=== PATIENT | male | born 1935 | race Caucasian/White ===

== ENCOUNTER 2016-12-31 09:09 | Outpatient (CLI) | payer MEDICARE ==
--- NOTE | 2016-12-31 10:41 | RAD ---
TWO VIEWS CHEST: 12/31/2016 COMPARISON: 08/20/2016 FINDINGS: Two views of the chest demonstrate bilateral pleural effusions and/or pleural scar. No significant interval changes seen since the previous comparison exam from 08/20/2016. No other evidence of air space opacities seen. IMPRESSION: Stable views chest with bilateral pleural effusions or pleural scar. No significant interval change s noted. POS: [facility]
--- OUTSIDE RECORDS SUMMARY | 2016-12-31 12:45 | XMS | Clinical Summary ---
:1935 Author Organization [facility] Address [address] [place] [address] Phone Care Team Providers Name Role Phone , Primary Care Provider Unavailable Allergies Not on File Current Medications Not on file Active Problems Not on file Social History Tobacco Use Types Packs/Day Years Used Date Never Assessed Sex Assigned at Date Recorded Not on file Last Filed Vital Signs Not on file Plan of Treatment Not on file Results Not on filefrom Last 3 Months
== END 2016-12-31 09:10 | disposition home or self-care (01) ==
LOC: RAD 09:09
PROVIDERS: ATTEND Internal Medicine Critical Care Medicine
DX: R06.00 Dyspnea, unspecified (principal)
CPT/HCPCS: 71020

== ENCOUNTER 2017-01-16 17:57 | Inpatient (IN) | payer MEDICARE ==
[2017-01-16 18:37] LABS: Hematocrit 39.9 % (42.0-52.0); Mean Platelet Volume 8.5 fL (7.4-10.4); White Blood Cell (WBC) Count 32.9 thou/uL (4.8-10.8)
[2017-01-16 18:52] LABS: Anisocytosis SLIGHT = 6-15 cells (100X) (0-5/hpf); Band 17 % (5-11); Elliptocytes SLIGHT = 2-5 cells (100X) (0-1/hpf); Macrocytosis SLIGHT = 6-15 cells (100X) (0-5/hpf); Neutrophil 75 % (42-75); Ovalocytes SLIGHT = 2-5 cells (100X) (0-1/hpf); Polychromasia SLIGHT = 2-3 cells (100X) (0-2/hpf); Schistocytes SLIGHT = 2-5 cells (100X) (0-1/hpf)
[2017-01-16 18:56] LABS: ALT (SGPT) 29 U/L (8-55); AST (SGOT) 16 U/L (5-34); Alkaline Phosphatase 81 U/L (40-150); Anion Gap 12 mmol/L (10-20); BUN (Urea Nitrogen) 21 mg/dL (8.4-25.7); Bilirubin, Total 1.4 mg/dL (0.2-1.2); Calc. Creatinine Clearance 0 mL/min (70-130); Calcium 8.7 mg/dL (7.8-10.44); Carbon Dioxide 32 mmol/L (23-31); Chloride 104 mmol/L (98-107); Estimated GFR-MDRD 76; Globulin 2.6 g/dL (2.4-3.5); Magnesium 2.4 mg/dL (1.6-2.6)
[2017-01-16 19:00] LABS: Troponin I 0.022 ng/mL (< 0.028)
[2017-01-16] MEDS ORDERED: Fentanyl 100 MCG/2 ML VIAL ONE (19:01)
[2017-01-16 19:05] LABS: PTT 25.7 SEC (22.9-36.1); Prothrombin Time 12.9 SEC (12.0-14.7)
[2017-01-16] MEDS ORDERED: Albuterol Sulfate 2.5 mg/3 ml Neb ONE (20:08)
--- NOTE | 2017-01-16 20:12 | RAD ---
THREE VIEWS RIGHT SHOULDER: History: Fall, pain. Comparison: None. FINDINGS: Mild bone demineralization. Glenohumeral joint space is preserved. No fracture or dislocation with r egards to the proximal humerus. Scapula is intact. Visualized right ribs are also intact. There is a mildly displaced distal clavicl e fracture. IMPRESSION: Mildly displaced distal clavicle fracture. POS: [facility]
--- NOTE | 2017-01-16 20:13 | RAD ---
TWO VIEWS RIGHT HIP: History: Fall, pain. Comparison: None. FINDINGS: An impacted slightly displaced fracture involving the right hip which appears to be subcapital in lo cation. There is disruption of the cortical margin noted along the superior lateral aspect. Moderate degenerative changes of the right hip joint space. Visualized bony pelvis is unremarkable. IMPRESSION: Right hip (subcapital) fracture. POS: [facility]
--- NOTE | 2017-01-16 20:21 | RAD ---
ONE VIEW CHEST: Comparison: 12-31-16 History: Fall. Pain. FINDINGS: Chronic changes of the right hemithorax. Stable cardiac silhouette. Stable compensatory hyperinflati on of the left lung. Stable bilateral apical pleural thickening. There is no pneumothorax. Distal right clavicle fracture. Acute fractures along the posterior right ribs are not appreciated. There appear to be remote fractu res involving the posterior right 8th and 9th rib. IMPRESSION: 1. Acute right clavicle fracture. 2. Remote fractures along the posterior right 8th and 9th rib. 3. Chronic changes of the lung parenchyma as above. POS: [facility]
[2017-01-16] MEDS ORDERED: HYDROcodone/Acetaminophen 5/325 mg Tablet ONE (20:37)
[2017-01-16] MEDS ORDERED: CEFAZOLIN/Water 2 GM/20 ML SYRINGE SLOW IVP SCH (21:00)
--- NOTE | 2017-01-16 21:57 | CON ---
DATE OF ADMISSION: 01/16/2017 DATE OF CONSULTATION: 01/16/2017 ATTENDING PHYSICIAN: Dr. Leobardo Webb. HISTORY OF PRESENT ILLNESS: Asael Cao is an 81-year-old gentleman with past medical history of COPD, atrial fibrillation, recurrent pleural effusion, who presented to [facility] m status post fall. He had a chief complaint of right lower extremity pain. He was evaluated in [facility] emergency room and found to be in atrial fibrillation with RVR with a right clavicle fracture, a r ight pleural effusion and a right hip fracture. Given patient's severe pulmonary history and multip le medical problems, Orthopedic Surgery asked that Medicine admit the patient with trauma and Orthop edics as consultants. Upon my evaluation, the patient reports a chief complaint of right hip pain. GCS of 15. The patient states that he was walking in his kitchen when his legs gave out from under neath him. He denied any dizziness, syncope, loss of consciousness, head trauma. He states he land ed on his right side, right hip, and right shoulder simultaneously. ALLERGIES: None. HOME MEDICATIONS: Ultram 50 mg 1 tab p.o. b.i.d. p.r.n. for pain, temazepam 30 mg p.o. at bedtime, gabapentin 600 mg t.i.d., prednisone 10 mg p.o. daily, although the patient is currently on a predni sone taper, Flomax 0.4 mg p.o. daily, atorvastatin 40 mg p.o. at bedtime, and aspirin 81 mg p.o. leslie ly. PAST MEDICAL HISTORY: Significant for COPD on 2 liters home O2, atrial fibrillation, recurrent pleu ral effusion, neuropathy, hypertension, BPH, coronary artery disease and peripheral vascular disease . PAST SURGICAL HISTORY: Appendectomy, right lung decortication, carotid endarterectomy. SOCIAL HISTORY: The patient lives at home with and son. Denies alcohol use. Denies illicit d rug use. The patient is a former smoker, approximately 50-pack years, chews tobacco. FAMILY HISTORY: Significant for father from a heart attack in his 70s. Mother fr om cervical cancer in her 90s, brothers with diabetes. REVIEW OF SYSTEMS: Negative except as indicated in the HPI. PHYSICAL EXAMINATION: VITAL SIGNS: Blood pressure 118/76, pulse 101, respirations 19, O2 sat 97% on 3-4 liters nasal kusum momo. GENERAL: Well-developed elderly appearing male, in no acute distress, resting in bed. PULMONARY: Normal work of breathing, symmetric chest rise. Lung sounds are distant bilaterally wit h mild expiratory wheezing. There appears to be clubbing of the digits. CARDIOVASCULAR: Tachycardic, irregularly irregular. No obvious murmurs, rubs or gallops. GASTROINTESTINAL: Abdomen is mildly rotund and tympanic. No tenderness to palpation. Bowel sounds are positive. BACK: Back exam is being reported within normal limits. MUSCULOSKELETAL: Right upper extremity range of motion limited secondary to pain. There is tendern ess to the right shoulder. There is a skin tear on the right wrist that is currently bandaged. Sathish ssing is clean, dry, and intact. Right lower extremity mildly shortened and externally rotated. Th ere is left lower extremity range of motion within normal limits. There is 1+ pitting edema at the ankle. Pulses are intact bilaterally. NEUROLOGIC: GCS of 15. No focal deficit noted. LABORATORY FINDINGS: WBC 32.9, hemoglobin 12.4, hematocrit 39.9, platelet count 252, 17% bands. IN R 1.0. Sodium 144, potassium 4.4, chloride 104, carbon dioxide 32, BUN 21, creatinine 0.95, total b ilirubin 1.4, AST and ALT within normal limits. RADIOGRAPHIC FINDINGS: X-ray of the right shoulder significant for clavicular fracture, official re ad is pending. Hip x-ray is significant for right femoral neck fracture, official read is pending. Chest x-ray demonstrates hyperinflated lungs with bibasilar pleural effusion, right greater than le ft, official read is still pending. EKG is significant for atrial fibrillation with RVR and nonspec ific T-wave abnormality as well as PVCs. ASSESSMENT: 1. Status post mechanical fall. 2. Right hip fracture. 3. Right clavicle fracture. 4. Acute traumatic pain. 5. Leukocytosis with bandemia. 6. Anemia. 7. Chronic obstructive pulmonary disease/chronic hypoxic respiratory failure on home O2. 8. Bilateral effusion, right greater than left. 9. History of coronary artery disease and hypertension. 10. Chronic steroid use. PLAN: The patient to be admitted to Medicine Service and IMCU. Orthopedic Surgery has seen and natali luated the patient. They plan for operative intervention tomorrow if cleared by Pulmonology and [facility] pital Medicine. Perioperative pain management. PT, OT. DVT and gastritis prophylaxis as appropria te. The patient should be n.p.o. after midnight. Trauma attending has been notified of consultatio n. Plans for admission were discussed with the patient as the patient was being evaluated concurren tly with Hospital Medicine. All questions were answered at the time of this dictation.
[2017-01-16] MEDS ORDERED: Ondansetron HCl/PF 4 MG/2 ML Vial IVP PRN ×2 (22:02→22:16)
[2017-01-16] MEDS ORDERED: Albuterol Sulfate 2.5 mg/3 ml Neb NEB PRN ×2 (22:02→22:15)
[2017-01-16] MEDS ORDERED: Temazepam 15 MG CAP PO PRN (22:02)
[2017-01-16 22:08] LABS: Troponin I 0.042 ng/mL (< 0.028)
[2017-01-16] MEDS ORDERED: Sodium Chloride 0.9% 1,000 ML IV SCH (22:15)
[2017-01-16] MEDS ORDERED: Ondansetron ODT 4 MG TAB SL PRN (22:16)
[2017-01-16] MEDS ORDERED: HYDROcodone/Acetaminophen 5/325 mg Tablet PO PRN ×2 (22:16)
[2017-01-16] MEDS ORDERED: Acetaminophen 325 MG TAB PO PRN (22:16)
--- NOTE | 2017-01-16 22:22 | HP ---
DATE OF ADMISSION: 01/16/2017 PRIMARY CARE PHYSICIAN: Francisco at [facility]. PRIMARY CERTIFIED TRAVEL COUNSELOR: Dr. Mayank Kennedy at [facility]. PRIMARY CLAY HOUSE WORKER AND BASICALLY PRIMARY CARE PHYSICIAN: Dr. Nigel Forrest here. CHIEF COMPLAINT: Fall with hip fracture. HISTORY OF PRESENT ILLNESS: Mr. Cao is a very pleasant 81-year-old white male with history of peripheral neuropathy, coronary artery disease with remote VA, hypertension, BPH, and COPD. This p atient is fairly significant who was in normal state of health and fell this morning. He states he was walking, had been up for a couple of minutes, walking across the house, and suddenl y just found himself on the floor. He does not remember any loss of consciousness or presyncope. N o dizziness. Normally, his family is around and they are able to help him to the floor, but not thi s time. He fell on to his left side, had immediate right hip pain and right shoulder pain. He was brought to the emergency department for evaluation. He denies any head trauma. No fevers or chills. No nausea or vomiting. No diarrhea or constipatio n. He has recently been treated for a COPD exacerbation and is tapering down off the steroids. No other current complaints. At present, he is comfortable. The patient was being seen by Dr. Bah and by the Trauma Service by Kelli prior to my arrival. T he plan is for us to admit him for Orthopedics and Trauma to consult. PAST MEDICAL HISTORY: 1. Peripheral neuropathy. 2. Coronary artery disease, status post VA in 2000. 3. Benign prostatic hypertrophy. 4. Hypertension. 5. Asthma/COPD. 6. Recurrent right pleural effusion that has not required drainage in some time. PAST SURGICAL HISTORY: Includes: 1. Carotid endarterectomy. He knows he has had the one done on the left and next he may have the o ne done on the right as well. 2. Appendectomy remotely. 3. Right lung pleural effusion removal, multiple times. At one time, he did have what sounds like a PleurX catheter in place, but that at some point fell out and has not needed re-draining since. HOME MEDICATIONS: 1. Aspirin 81 mg daily. 2. Gabapentin 600 mg p.o. t.i.d. 3. Tramadol 50 mg p.o. b.i.d. 4. Tamsulosin 0.4 mg p.o. daily. 5. Prednisone 10 mg p.o. daily. He is currently on a tapering dose down to 20 mg daily. He is sup posed to go back down to 10 mg tomorrow. 6. DuoNebs nebulized t.i.d. 7. Budesonide 500 mg nebulized b.i.d. 8. Temazepam 15-30 mg p.o. at bedtime. 9. Vitamin D3 1000 units daily. 10. Atorvastatin 40 mg p.o. at bedtime. ALLERGIES: NKDA. FAMILY HISTORY: Negative for clotting or bleeding disorder, no immune dysfunction. SOCIAL HISTORY: Significant for chewing tobacco. He has backed off quite some time in the last cou ple of weeks. He did have a 38-[id number]-eylk history, started at the age of 16 or 17, 1 pack per day fo r about 60 years, but quit that a few years ago and started chewing tobacco. No history of alcohol or IV drug use. He lives with his family. REVIEW OF SYSTEMS: A 10-point review of systems was performed, negative for all other systems excep t stated as per HPI. Specifically, he states that his breathing is about baseline. He denies any p alpitations. PHYSICAL EXAMINATION: VITAL SIGNS: Temperature currently 99.0, pulse anywhere from 107-149, blood pressure 148/79, respir atory rate 20, satting 96% on 2 liters. GENERAL: He is awake. He is alert. He is oriented x3. He is an older white male who is frail but appears to be well-developed, well-nourished. HEENT: Normocephalic, atraumatic. Pupils equal, round, reactive bilaterally. Mucous membranes are moist. He has no visible lesion, no thrush. His teeth are in poor repair. NECK: Supple. He has bilateral carotid endarterectomy scars. He has no bruits. Normal carotid up strokes. NECK: Supple with good range of motion. No thyromegaly. LUNGS: He has prolonged expiratory phase and expiratory high-pitched wheezing. He has got poor air movement bilaterally with symmetrical chest excursion. He has no crackles, no rhonchi. CARDIOVASCULAR: He is irregularly irregular. He has an S1 and a faint S2. He has no audible murmu rs. ABDOMEN: Soft. It is nontender, nondistended, no masses, no organomegaly. EXTREMITIES: Show no cyanosis or clubbing. He has no edema at present. MUSCULOSKELETAL: He has swelling and fluid around the medial right clavicle. His left hip is nonte nder and without any palpable joint effusions. The remainder of his joints are normal to inspection . NEUROLOGIC: Cranial nerves II through XII are grossly intact. He has no focal neurologic deficits in 4-5/5 strength in all 4 of his extremities. SKIN: Otherwise, warm, moist, and well perfused. He has no rashes, no lesions. He has an IV in juany th of his peripheral forearms. LABORATORY DATA: CMP is essentially normal. Sodium 144, potassium 4.4, creatinine 0.95, glucose 89 . INR is 1.0. Troponin I was 0.022, MB fraction of 1.7. He has a white count of 32,900,he has 75% granulocytes, w ith 7% bands. Hemoglobin is 12.4, hematocrit of 39.9, platelets 252,000. IMAGING: Right shoulder films showed a right clavicular fracture medial with minimal displacement. Chest x-ray showed no acute lung abnormalities. Right hip showed a comminuted right femoral neck f racture. ASSESSMENT AND PLAN: 1. Fall from same level. The patient does not report and specifically denies syncope, presyncope, or palpitations. He does have a history of recurrent falls. Placed him on fall precautions. 2. Right femoral neck fracture: Certainly, a traumatic fracture with associated right medial clavi cular fracture. Orthopedic has been consulted. We will immobilize the right arm. We will keep the patient n.p.o. as Dr. Bah has seen the patient and plan is to take him to the operating room [facility] if cleared by Pulmonary for operative repair. 3. Atrial fibrillation with rapid ventricular response, history of paroxysmal atrial fibrillation: Per Dr. Licona's request, we will place the patient on amiodarone drip without a loading dose. We are getting 1 mg per hour. We will reevaluate in the morning. The heart rate is fluctuating betwe en 107-170 on the monitor, may benefit from the Cardizem as his blood pressure support or digoxin. 4. History of coronary artery disease: No chest pain. He has a heart doctor that he sees in [place]. We will monitor his biomarkers. 5. Benign prostatic hypertrophy. We will continue his Flomax. 6. Hypertension, on really nothing. 7. Hyperlipidemia, on atorvastatin. 8. History of chronic obstructive pulmonary disease: Does not appear to be in any acute flare. We will continue DuoNebs q.i.d. with q. 2 hours p.r.n. albuterol. We will continue his steroids at 20 mg a day. I will likely restart his budesonide as well. Pulmonary has been consulted. We will ge t their recommendations. 8. Recurrent right pleural effusion: Not much seen on chest x-ray today other than scarring and pl eural thickening. We will follow up on the official report once available.
[2017-01-16] MEDS ORDERED: Famotidine/PF 20 mg/2ml Vial SLOW IVP SCH (22:30)
[2017-01-16] MEDS ORDERED: Gabapentin 300 MG CAP PO SCH (22:30)
[2017-01-16] MEDS ORDERED: Tamsulosin HCl 0.4 MG CAP PO SCH (22:30)
[2017-01-16 22:56] VITALS: BMI 20.1
[2017-01-16] MEDS ORDERED: Morphine 4 MG/ML VIAL SLOW IVP PRN (23:13)
--- NOTE | 2017-01-16 23:15 | CON ---
DATE OF CONSULTATION: 01/16/2017 PRINCIPAL DIAGNOSES: 1. Femoral neck fracture. 2. Clavicle fracture. HISTORY OF PRESENT ILLNESS: Mr. Cao is an 81-year-old gentleman who suffers frequent falls at home. He fell today and suffered a fracture of his distal clavicle and moderately displaced femora l neck fracture on the right side, both fracture being on the right side. He complains of pain at t he hip and the shoulder. PHYSICAL EXAMINATION: GENERAL: Shows a pleasant gentleman who is alert and oriented. He has remarkable sense of humor an d very good spirits. HEAD: Normocephalic, atraumatic. His clavicle is tender. EXTREMITIES: His right hip has mild shortening and external rotation with tenderness with any manip ulation of the hip. No palpable pulses distally. His capillary refill is intact, and he has sensat ion and motor function distally on the right leg. Neurovascular status is intact and right upper ex tremity with intact radial pulse. Radiographs show a type 2 distal clavicle fracture and a displaced femoral neck fracture. PLAN: At this time is as follows: Clavicle fracture will be treated conservatively. He may be all owed to bear a little bit of weight on this since this is type 2 fracture. The conoid and trapezoid ligaments appeared to be intact. The femoral neck, we treated with hemiarthroplasty. He does have a significant history of COPD and Dr. Forrest will see him preoperatively. Spinal anesthesia will be considered.
[2017-01-16] MEDS: Morphine 4 MG/ML Carpuject SLOW IVP PRN (23:52)
[2017-01-17 00:47] LABS: Troponin I 0.042 ng/mL (< 0.028)
[2017-01-17 05:02] LABS: #Eosinphils 0.5 thou/uL (0.0-0.7); #Lymphocytes 1.5 thou/uL (1.20-3.40); #Monocytes 1.4 thou/uL (0.11-0.59); #Neutrophils 14.8 thou/uL (1.40-6.50); %Basophils 0.2 % (0.0-1.0); %Eosinophils 2.7 % (0.0-10.0); %Lymphocytes 8.5 % (21.0-51.0); %Monocytes 7.6 % (0.0-10.0); Hematocrit 33.4 % (42.0-52.0); Mean Platelet Volume 9.1 fL (7.4-10.4); Red Blood Cell (RBC) Count 3.24 mill/uL (4.70-6.10); White Blood Cell (WBC) Count 18.2 thou/uL (4.8-10.8)
[2017-01-17] MEDS: Amiodarone HCl 450 MG, Admixture Fee 1 EACH in Dextrose 5% in Water 250 ML IVPB SCH ×6 (05:13→22:17)
[2017-01-17] MEDS: Morphine 4 MG/ML Carpuject SLOW IVP PRN ×2 (05:13→09:19)
[2017-01-17 05:27] LABS: Anion Gap 9 mmol/L (10-20); BUN (Urea Nitrogen) 26 mg/dL (8.4-25.7); Calc. Creatinine Clearance 40 mL/min (70-130); Calcium 7.8 mg/dL (7.8-10.44); Carbon Dioxide 31 mmol/L (23-31); Chloride 105 mmol/L (98-107); Estimated GFR-MDRD 46
[2017-01-17] MEDS ORDERED: predniSONE 20 MG TAB PO SCH (08:00)
[2017-01-17] MEDS: Famotidine/PF 20 mg/2ml Vial SLOW IVP SCH ×2 (08:41→21:40)
[2017-01-17] MEDS: Gabapentin 300 MG CAP PO SCH ×3 (08:41→21:39)
[2017-01-17] MEDS ORDERED: FLU VACC TS2017-18 (>65YR) 0.5 ML SYRINGE IM ONE (09:00)
[2017-01-17] MEDS ORDERED: Morphine 4 MG/ML Carpuject SLOW IVP PRN (09:24)
--- NOTE | 2017-01-17 11:31 | PDOC.PN ---
- Subjective Encounter Start Date: 01/17/17 Encounter Start Time: 09:00 Pt seen and exmained, at the bedisde. Pt had had Afib/flutter with HR between 70 and 110 all morning. No CP, no SOb, breathing at baeline. NO f/C, no D/C. trouble urinating today. Did get flomax last evening Case discussed face to face with Dr Forrest, Dr Bah and Kelli (WHIT) with trauma. Pt probably as medically stable as he gets, still high risk, but risk minimized Troponins up a little overnight, likely demand ischemia form his 120-170 HR on admit Hip hurts, cant move it due to pain 10 point ROS performed and neg for all systems except as per HPI - Objective Resuscitation Status: Resuscitation Status DNR:Do Not Resuscitate MAR Reviewed: Yes Vital Signs & Weight: Vital Signs (12 hours) Temp Pulse Resp BP BP Pulse Ox 01/17/17 07:38 98.7 F 70 20 98 01/17/17 07:31 70 20 98 01/17/17 07:17 98.7 F 61 16 103/41 L 100 01/17/17 05:00 14 103/47 L 100 01/17/17 04:00 78 14 94/48 L 100 01/17/17 03:00 80 14 90/40 L 100 01/17/17 02:30 84 14 97/59 L 100 01/17/17 02:00 82 14 97/39 L 100 01/17/17 01:30 84 16 100/54 L 01/17/17 01:00 105 H 16 104/46 L 100 01/17/17 00:32 61 18 98 01/17/17 00:30 82 16 107/50 L 100 01/17/17 00:00 84 16 113/63 100 01/16/17 23:30 82 16 107/60 100 Weight Weight 157 lb I&O: 01/16/17 01/17/17 01/18/17 06:59 06:59 06:59 Intake Total 1121 Balance 1121 Result Diagrams: 01/17/17 03:44 01/17/17 03:44 Radiology Reviewed by me: Yes EKG Reviewed by me: Yes Phys Exam - Physical Examination Constitutional: NAD HEENT: PERRLA, moist MMs, sclera anicteric, oral pharynx no lesions Neck: no nodes, no JVD, supple, full ROM Respiratory: no wheezing, no rhonchi coarse R sided breath sounds. poor air movemment no prolonged expiration or wheezing this AM irreg irreg. no audible murmurs at present Gastrointestinal: soft, non-tender, no distention, positive bowel sounds Musculoskeletal: no edema, pulses present Neurological: non-focal, normal sensation, moves all 4 limbs decreased RLE movement due ot pain. foot flexion normal Lymphatic: no nodes Psychiatric: normal affect, A&O x 3 Skin: no rash, normal turgor, cap refill <2 seconds Deviation from normal: hematoma over medial right clavicle stable Dx/Plan (1) Fall on same level as cause of accidental injury Code(s): W18.30XA - FALL ON SAME LEVEL, UNSPECIFIED, INITIAL ENCOUNTER Status : Acute (2) Fracture of femoral neck, right, closed Code(s): S72.001A - FRACTURE OF UNSP PART OF NECK OF RIGHT FEMUR, INIT Status : Acute Comment: to OR today 01/[address] Bah. Medically stable (3) Right clavicle fracture Code(s): S42.001A - FRACTURE OF UNSP PART OF RIGHT CLAVICLE, INIT FOR CLOS FX Status: Acute Qualifiers: Encounter type: initial encounter Clavicle location: sternal end Fracture type: closed Fracture alignment: nondisplaced Qualified Code(s): S42.017A - Nondisplaced fracture of sternal end of right clavicle, initial encounter for closed fracture Comment: minimal displacement (4) COPD (chronic obstructive pulmonary disease) Status: Acute Qualifiers: COPD type: emphysema Emphysema type: panlobular Qualified Code(s): J43.1 - Panlobular emphysema Comment: on scheduled duonebs, oral steroids, PRN albuterol. Pulm on the case, discusse dith Dr Forrest his [facility] (5) Paroxysmal atrial fibrillation with RVR Code(s): I48.0 - PAROXYSMAL ATRIAL FIBRILLATION Status: Chronic Comment: in Afib/flutter on the monitor. Rate better controlled. On amio gtt. continue for now. Looks like he may be tryin gto organize and convert. Not an anticoagulation candidate due to falls (6) Urinary retention Code(s): R33.9 - RETENTION OF URINE, UNSPECIFIED Status: Acute Comment: acute, history of BPH. bladder scan and cho is more than 300 (7) ERIKA (acute kidney injury) Code(s): N17.9 - ACUTE KIDNEY FAILURE, UNSPECIFIED Status: Acute Comment: Dr Tesfaye to 1.49. ? ATN from decreased output with RVR vs lower obstruction. follow (8) CAD (coronary artery disease) Code(s): I25.10 - ATHSCL HEART DISEASE OF [place] CORONARY ARTERY W/O ANG PCTRS Status: Acute Qualifiers: Coronary Disease-Associated Artery/Lesion type: [place] artery [place] vs. transplanted heart: [place] heart Associated angina: without angina Qualified Code(s): I25.10 - Atherosclerotic heart disease of [place] coronary artery without angina pectoris (9) BPH with obstruction/lower urinary tract symptoms Code(s): N40.1 - BENIGN PROSTATIC HYPERPLASIA WITH LOWER URINARY TRACT SYMP; N13.8 - OTHER OBSTRUCTIVE AND REFLUX UROPATHY Status: Chronic Comment: continue flomax, cho to be placed perioperatively (10) HTN (hypertension) Code(s): I10 - ESSENTIAL (PRIMARY) HYPERTENSION Status: Chronic Qualifiers: Hypertension type: essential hypertension Qualified Code(s): I10 - Essential (primary) hypertension (11) Peripheral neuropathy Code(s): G62.9 - POLYNEUROPATHY, UNSPECIFIED Status: Chronic Qualifiers: Peripheral neuropathy type: polyneuropathy, unspecified Qualified Code(s): G62.9 - Polyneuropathy, unspecified (12) Demand ischemia Code(s): I24.8 - OTHER FORMS OF ACUTE ISCHEMIC HEART DISEASE Status: Acute Comment: barely elevated troponin, no CP. form increased HR with RVR. rate better controlled - Plan * .
[2017-01-17] MEDS ORDERED: Fentanyl 250 MCG/5 ML VIAL ONE (12:36)
[2017-01-17] MEDS ORDERED: Propofol 200 MG/20 ML VIAL ONE (12:51)
[2017-01-17] MEDS ORDERED: Ondansetron HCl/PF 4 MG/2 ML Vial ONE (12:51)
[2017-01-17] MEDS ORDERED: Hydrocortisone Sod Succ/PF 100 mg/2 ml Vial ONE (12:51)
[2017-01-17] MEDS ORDERED: PHENYLEPHRINE-NS 100 MCG/ML 10 ML SYRINGE ONE (12:51)
[2017-01-17] MEDS ORDERED: Lidocaine 2% PF 10 ML AMP (For Epidural Use) ONE (12:51)
--- NOTE | 2017-01-17 13:29 | PRG ---
DATE OF SERVICE: 01/17/2017 SUBJECTIVE: Asael Cao is an 81-year-old gentleman who is hospital day 2, postop day 0, stat us post ground level fall. He was found to have a right hip fracture. He is scheduled for operativ e intervention to his injury later this afternoon pending pulmonary and medical clearance. This a.m ., patient has a chief complaint of right hip pain and requested to see the x-rays of his hip fractu re. Atrial fibrillation is now rate controlled. OBJECTIVE: VITAL SIGNS: Temperature 98.7, pulse 70, respirations 20, O2 sat 98% on 2 liters, blood pressure 12 2/58. GENERAL: Elderly thin and somewhat frail appearing male resting in bed in no acute distress. Basel ine tremor noted. Pulmonary: Normal work of breathing. Symmetrical rise. CARDIOVASCULAR: Irregularly irregular. No obvious murmurs, rubs or gallops. GASTROINTESTINAL: Abdomen is soft, nontender, and nondistended. MUSCULOSKELETAL: Limited right lower extremity and right upper extremity range of motion secondary to pain. SKIN: There is a hematoma over his right clavicle. NEUROLOGIC: No focal deficit noted. LABORATORY DATA: WBC 18.2, hemoglobin 10.6, hematocrit 33.4, and platelet count 178. Sodium 141, p otassium 4.2, chloride 105, carbon dioxide 31, BUN 26, creatinine 1.46, glucose 89. Troponin 0.042. ASSESSMENT: 1. Status post ground level fall. 2. Right hip fracture. 3. Right clavicle fracture. 4. Acute traumatic pain. 5. Elevated troponin. 6. Chronic obstructive pulmonary disease, chronic hypoxic respiratory failure on home O2. 7. Urinary retention. 8. Acute kidney injury. 9. History of benign prostatic hypertrophy. 10. History of hypertension. 11. Atrial fibrillation, rate controlled. PLAN: The patient is awaiting clearance from Pulmonary for surgery this afternoon for his right hip fracture. Patient should have sling for comfort to right upper extremity. The patient is currentl y n.p.o. We will evaluate postoperative and manage postoperative pain. Case management for eventua l disposition. Follow Pulmonary and Medicine recommendations regarding comorbidities. Patient is c urrently attempting to avoid RN to a bladder scan and place a Cardona if residual or if bladder scan i s greater than 300 per hospital medicine A.m. labs. Patient seen by trauma attending. All questio ns are answered at the time of this dictation.
[2017-01-17] MEDS ORDERED: Promethazine HCl 25 MG/ML VIAL IM PRN (13:38)
[2017-01-17] MEDS ORDERED: Promethazine HCl 25 MG/ML VIAL SLOW IVP PRN (13:38)
[2017-01-17] MEDS ORDERED: Ondansetron HCl/PF 4 MG/2 ML Vial IVP PRN (13:38)
--- NOTE | 2017-01-17 13:56 | PRG ---
DATE OF SERVICE: 01/17/2017 Mr. aCo is seen with the Trauma Service and Kelli Aguilar PA-C. Please see her note for deta ils: Mr. Cao has no complaints. He is going to the OR today for open reduction and internal fixation of his hip fracture. ASSESSMENT: History of ground level fall and right hip fracture, set for repair today. He has a history of multiple chronic medical problems including chronic obstructive pulmonary diseas e, history of atrial fibrillation, history of hypertension. PLAN: Appreciate Medicine's assistance with his care. Plans per Ortho. Trauma will continue to fo llow.
[2017-01-17 16:05] LABS: Sodium 138 mmol/L (135-148)
[2017-01-17 16:08] LABS: Mechanical Tidal Volume 500 ml; Mode PSIMV; Modified Allen's Test NOT DONE; Pressure Support 10 cmH2O; Vent YES
[2017-01-17] MEDS ORDERED: Propofol 1,000 MG/100 ML VIAL IV ONE (16:11)
[2017-01-17] MEDS ORDERED: DISCONTINUE PREVIOUS NARCOTIC PAIN MEDICATIONS AND BENZODIAZEPINES FS SCH (17:21)
[2017-01-17] MEDS ORDERED: Lorazepam 2 MG/ML VIAL SLOW IVP PRN (17:21)
[2017-01-17] MEDS ORDERED: Fentanyl 20 MCG/ML 250 ML IVPB SCH (17:21)
[2017-01-17] MEDS ORDERED: Propofol 1,000 MG/100 ML VIAL IV PRN (17:21)
[2017-01-17] MEDS ORDERED: Morphine PF 1 MG/ML SYR IVP PRN (17:30)
[2017-01-17] MEDS ORDERED: Morphine PF 1 MG/ML SYR IV PRN (17:31)
[2017-01-17] MEDS ORDERED: Morphine 10 MG/ML VIAL SLOW IVP PRN (17:33)
[2017-01-17] MEDS: Cefepime 1 GM, Admixture Fee 1 EACH in Sterile Water 10 ML SLOW IVP SCH (18:00)
--- NOTE | 2017-01-17 18:10 | RAD ---
RIGHT HIP TWO VIEWS: Indication: Post op evaluation of the right hip. FINDINGS: Right hip prosthesis without evidence of hardware complication. Expected post procedural soft tissue findings are seen. IMPRESSION: Post-operative right hip. POS: [facility]
[2017-01-17] MEDS: CEFAZOLIN/Water 2 GM/20 ML SYRINGE SLOW IVP SCH ×2 (18:19→22:14)
--- NOTE | 2017-01-17 19:14 | OP ---
DATE OF PROCEDURE: 01/17/2017 PREOPERATIVE DIAGNOSIS: Right hip displaced femoral neck fracture. POSTOPERATIVE DIAGNOSIS: Right hip displaced femoral neck fracture. OPERATIVE PROCEDURE: Press-Fit right hip monopolar hemiarthroplasty. SURGEON: Villa Bah M.D. MECHANICAL DESIGN DRAFTER: Tashi Francois PA-C. ANESTHESIA: General via endotracheal tube. COMPONENTS USED: [facility] Accolade press fit size 3.5 with a 54 mm Uni prosthesis w ith -4 neck length. ESTIMATED BLOOD LOSS: 150 mL FINDINGS: Femoral neck fracture as described on radiographs. DRAINS: None. SPECIMENS: None. COMPLICATIONS: None. COUNTS: Correct. INDICATIONS FOR SURGERY: Asael is an 81-year-old white male who fell yesterday resulting in right hip femoral neck fracture. He has been admitted to the medicine service and our service was consul gerhard for definitive orthopedic management of his right hip. PROCEDURE IN DETAIL: After informed consent was obtained in the preoperative holding area, the chucky ent received preoperative antibiotics. He was taken to the operative suite and general anesthesia w as induced and an endotracheal tube was placed and secured. Once adequate anesthesia was obtained h e was positioned appropriately on the operating table in the left lateral decubitus. The right low er extremity was then prepped and draped in usual sterile fashion. After the was prepared, ti me out was called prior to incision and all members of the surgical team agreed on the site, surgeon , and patient. Once this was completed, a linear incision was made using an anterolateral approach over the right greater trochanter. Subcutaneous layers were dissected with Bovie electrocautery. W e encountered a large hematoma. This was evacuated. IT band was then dissected out and incised sha rply. Charnley retractor was placed under the IT band. The abductors were then incised with Bovie electrocautery and reflected down to the neck. Copious was performed revealing a large hemato ma and fracture pattern. Provisional neck cut was made using the oscillating saw. We then removed the femoral head with the corkscrew and the remaining debris was rongeured out. Ensuring that the a cetabulum was clear, pulsatile lavage was carried out in the depth of the acetabulum. Attention was then turned to prep femoral preparation. Reaming was carried up to size 5 and we are sequential br oaching up to size 3.5. This held firm and fast with antirotation and no subsidence. The permanent prosthesis was then malleted firmly and squarely into place. The endoprosthesis was trialed with jacquie sweeney shuck and stability. Therefore we elected to go ahead and Alas taper the endoprosthesis into p lace. Reduction maneuver was performed. Primary closure was accomplished with #2 and the abductors #2 and the IT band with a running Quill #2 and 0 Monocryl in the subcutaneous layer and Quill stitc h was used to reapproximate the skin and skin glue was then used over the top. A sterile dressing w as applied. The procedure was terminated without any complication. The patient was sent to the Int ensive Care Unit with an endotracheal tube in place and secured where he will be weaned off the vent ilator.
[2017-01-17] MEDS ORDERED: Cefepime 1 GM in Sodium Chloride 0.9% 100 ML IVPB SCH (21:00)
[2017-01-17] MEDS: Tamsulosin HCl 0.4 MG CAP PO SCH (21:39)
--- NOTE | 2017-01-17 22:00 | CON ---
DATE OF CONSULTATION: 01/17/2017 HISTORY: This is an 81-year-old gentleman who sees Dr. Forrest regularly. His was here at the [facility]. He apparently fell and fractured his right hip, he was taken to surgery by Dr. Bah, he h as left on the vent overnight. His chest x-ray shows chronic right pleural scarring, thickening. Walker archer had previous thoracentesis and chest tube on the same side. He has longstanding history of COPD. Apparently he got weak this morning on the floor. Extensive history as outlined in several different records is pertinent for his prolonged chest tube following decortication in the right side. PAST MEDICAL HISTORY: Coronary artery disease, BPH, hypertension, COPD, neuropathy, deconditioning. PAST SURGICAL HISTORY: Carotid endarterectomy, appendix, decortication. MEDICATIONS: From home includes a recent prednisone, tramadol, temazepam, Crestor, Protonix, DuoNeb , gabapentin, folic acid, Coreg, , aspirin, and Tylenol. ALLERGIES: None. REVIEW OF SYSTEMS: Negative. PHYSICAL EXAMINATION: VITAL SIGNS: Blood pressure 110/56, pulse 89, temperature 99. CHEST: Reveals decreased breath sounds without any wheezing. CARDIAC: Normal S1, S2. No gallops. ABDOMEN: Soft. No masses. LABORATORY: White count 18,000, H\T\H 10 and 30, platelet 178. White count on admission was 32,000 . His chemistry showed creatinine of 1.46. X-ray is noted. IMPRESSION: 1. Status post fall, fractured hip, status post surgery. 2. Severe chronic obstructive pulmonary disease. 3. Supraventricular tachycardia. 4. Neuropathy. PLAN: Continue vent support overnight. Continue IV Medrol, wean when stable. Pain relief. Dr. Forrest will see the patient in the morning.
[2017-01-18] MEDS: Cefepime 1 GM, Admixture Fee 1 EACH in Sterile Water 10 ML SLOW IVP SCH ×2 (04:18→15:33)
[2017-01-18 05:34] LABS: Anion Gap 11 mmol/L (10-20); BUN (Urea Nitrogen) 38 mg/dL (8.4-25.7); Calc. Creatinine Clearance 40 mL/min (70-130); Carbon Dioxide 26 mmol/L (23-31); Chloride 105 mmol/L (98-107); Estimated GFR-MDRD 46; Phosphorus 3.9 mg/dL (2.3-4.7)
[2017-01-18 05:57] LABS: Acanthocytes SLIGHT = 1-5 cells (100X) (None Seen); Anisocytosis SLIGHT = 6-15 cells (100X) (0-5/hpf); Band 14 % (5-11); Elliptocytes SLIGHT = 2-5 cells (100X) (0-1/hpf); Hematocrit 28.5 % (42.0-52.0); Mean Platelet Volume 8.9 fL (7.4-10.4); Neutrophil 81 % (42-75); Red Blood Cell (RBC) Count 2.69 mill/uL (4.70-6.10); Schistocytes SLIGHT = 2-5 cells (100X) (0-1/hpf); White Blood Cell (WBC) Count 20.7 thou/uL (4.8-10.8)
[2017-01-18] MEDS: CEFAZOLIN/Water 2 GM/20 ML SYRINGE SLOW IVP SCH (06:07)
[2017-01-18] MEDS: Gabapentin 300 MG CAP PO SCH ×4 (08:36→20:29)
[2017-01-18] MEDS: Enoxaparin Sodium 40 MG/0.4 ML SYRINGE SC SCH (08:37)
[2017-01-18] MEDS: Carvedilol 3.125 MG TAB PO SCH ×2 (08:37→20:29)
--- NOTE | 2017-01-18 09:28 | RAD ---
SEMIUPRIGHT CHEST 1 VIEW: Date: 01/18/17 HISTORY: 81-year-old male with respiratory insufficiency. COMPARISON: 01/16/17. FINDINGS: Endotracheal tube in satisfactory location. Monitor leads overlie the chest. Prominent right-sided p leural opacity with minimal parenchymal opacity and some fairly prominent right-sided lung volume lo ss. Left apical pleural thickening. Healed right rib fractures. Loop recorder overlying the left [address]. IMPRESSION: Stable right-sided lung volume loss with extensive pleural and some parenchymal opacity changes. Sta ble left chest. Endotracheal tube in satisfactory location. POS: [facility]
[2017-01-18] MEDS: Amiodarone HCl 450 MG, Admixture Fee 1 EACH in Dextrose 5% in Water 250 ML IVPB SCH ×3 (14:29)
--- NOTE | 2017-01-18 14:52 | PRG ---
DATE OF SERVICE: 01/18/2017 SUBJECTIVE: The patient's hospital day #3, postop day #1, status post ground level fall when he jeffrey tained a right hip fracture. The patient had multiple comorbidities to include significant COPD, ch ronic hypoxic respiratory failure on home O2. The patient underwent his orthopedic procedure yester day and tolerated this procedure well. The patient was left on the ventilator overnight. This morn ing will be evaluated by Dr. Forrest, his primary sales support associate to evaluate potential for extubation. Per report, the patient had no issues overnight. The patient's vital signs were stable. OBJECTIVE: VITAL SIGNS: This morning temperature is 99.1, heart rate 100, blood pressure 177/65, respirations 20, oxygen saturation is 100% on the ventilator at 40% oxygen. GENERAL: The patient is resting in bed. He is on sedation vacation this morning. He will open his eyes and will follow some simple commands. LUNGS: His chest has scattered wheezing and rhonchi bilaterally. HEART: Irregularly irregular. ABDOMEN: Soft, flat, nontender with hypoactive bowel sounds. Pelvis is stable. EXTREMITIES: Neurovascularly intact x4. His surgical dressing is clean, dry, and intact. LABORATORY DATA: White blood cell count 20.7, hemoglobin 8.6, hematocrit 28.5, platelet 162. Sodiu m 138, potassium 4.4, chloride 105, CO2 of 26, BUN 38, creatinine 1.47, glucose 187, magnesium 2.0, phosphorus 3.9. ASSESSMENT AND PLAN: 1. Status post ground level fall. 2. Right hip fracture, status post open reduction and internal fixation of hip fracture, right clav icle fracture treated with sling. 3. Respiratory failure secondary to significant chronic obstructive pulmonary disease, which is agnieszka ng followed by Dr. Forrest. Plan will be to continue supportive care. The patient's traumatic injuri es have been addressed, and he is primarily going to have potential problems with his medical issues , at which time we will allow the medicine team and specifically Dr. Forrest manage his care. We may be consulted as needed. Orthopedics will continue to follow along per their norm postoperatively. This was discussed with Dr. Forrest, and he was in agreement with this plan.
--- NOTE | 2017-01-18 15:15 | PRG ---
DATE OF SERVICE: 01/18/2017 SUBJECTIVE: Mr. Asael Cao was left intubated overnight. He is awake and alert this morning . OBJECTIVE: VITAL SIGNS: His heart rate is 85, respiratory rate is 15, oximetry is 99% and blood pressure 137/5 0. LUNGS: Equal breath sounds. His lungs are clear. HEART: Regular rhythm. ABDOMEN: Soft. LABORATORY DATA: White count 20, hemoglobin 8.6 and platelets 162,000. Electrolytes were normal. Creatinine is 1.47. His baseline on admission was 0.95. PH 7.42, CO2 of 30 and pO2 of 116 yesterda y after surgery. IMPRESSION: 1. Chronic obstructive pulmonary disease with overnight ventilation after surgery. 2. Status post right hip hemiarthroplasty after a fall. 3. Underlying obstructive lung disease. 4. History of clavicle fracture with this fall. 5. History of an indwelling chest tube for a chronic empyema, eventually fell out after he had slow ly been advanced out. He has had no recurrence of symptoms in this area. 6. Chronic respiratory failure, chronically on oxygen at home. PLAN: Continue supportive care. I felt he is a candidate for extubation. This has been done succe ssfully. He has no complaints. He is back to his baseline entertaining personality.
--- NOTE | 2017-01-18 17:07 | PDOC.PN ---
- Subjective Encounter Start Date: 01/18/17 Encounter Start Time: 16:45 Subjective: f/u s/p ORIF R hip fx post fall and extubated. No new complaints. -: Tele showing A-fib controlled rate on Amiodarone gtt. No CP or -: worsening SOB. - Objective Resuscitation Status: Resuscitation Status DNR:Do Not Resuscitate MAR Reviewed: Yes Vital Signs & Weight: Vital Signs (12 hours) Temp Pulse Resp BP Pulse Ox 01/18/17 16:00 98.2 F 01/18/17 13:10 85 15 99 01/18/17 12:00 97.7 F 93 L 01/18/17 09:36 94 23 H 99 01/18/17 08:00 15 01/18/17 07:24 99.1 F 99 21 H 93 L 01/18/17 07:00 99.1 F 01/18/17 06:58 97 134/46 L 01/18/17 06:52 101 H 22 H 99 01/18/17 06:00 17 Weight Admit Weight 157 lb Weight 157 lb Most Recent Monitor Data Heart Rate from ECG 75 NIBP 143/60 NIBP BP-Mean 95 Respiration from ECG 14 SpO2 97 I&O: 01/17/17 01/18/17 01/19/17 06:59 06:59 06:59 Intake Total 1121 252.8 240 Output Total 1050 370 Balance 1121 -797.2 -130 Result Diagrams: 01/18/17 04:53 01/18/17 04:53 Additional Labs: Laboratory Tests 01/16/17 01/16/17 01/17/17 18:28 18:28 03:44 WBC 32.9 H Hgb 12.4 L Creatinine 0.95 1.46 H 01/17/17 03:44 WBC 18.2 H Hgb 10.6 L Creatinine Radiology Reviewed by me: Yes (PCXR - chronic changes bilat, R distal clavicle fx) EKG Reviewed by me: Yes (Tele - A-fib in 80's on Amiodarone gtt) Phys Exam - Physical Examination Constitutional: NAD HEENT: PERRLA, oral pharynx no lesions Neck: no JVD, supple diminished in bases Cardiovascular: irregular Gastrointestinal: soft, non-tender, no distention, positive bowel sounds R hip with edema and surgical dressing in place Musculoskeletal: pulses present Neurological: normal sensation, moves all 4 limbs Psychiatric: A&O x 3 Skin: normal turgor, cap refill <2 seconds Dx/Plan (1) Fracture of femoral neck, right, closed Code(s): S72.001A - FRACTURE OF UNSP PART OF NECK OF RIGHT FEMUR, INIT Status : Acute Comment: to OR today 01/[address] Bah. Medically stable (2) ERIKA (acute kidney injury) Code(s): N17.9 - ACUTE KIDNEY FAILURE, UNSPECIFIED Status: Acute Comment: Dr Tesfaye to 1.49. ? ATN from decreased output with RVR, supportive care, avoid nephrotoxic meds and contrast media, repeat creat in am (3) CAD (coronary artery disease) Code(s): I25.10 - ATHSCL HEART DISEASE OF [place] CORONARY ARTERY W/O ANG PCTRS Status: Chronic Qualifiers: Coronary Disease-Associated Artery/Lesion type: [place] artery [place] vs. transplanted heart: [place] heart Associated angina: without angina Qualified Code(s): I25.10 - Atherosclerotic heart disease of [place] coronary artery without angina pectoris Comment: Stable, (4) COPD (chronic obstructive pulmonary disease) Status: Acute Qualifiers: COPD type: emphysema Emphysema type: panlobular Qualified Code(s): J43.1 - Panlobular emphysema Comment: on scheduled duonebs, oral steroids, PRN albuterol. Pulm on the case, discusse dith Dr [facility], continue Cefepime, Solumedrol, Duonebs (5) Demand ischemia Code(s): I24.8 - OTHER FORMS OF ACUTE ISCHEMIC HEART DISEASE Status: Acute Comment: barely elevated troponin, no CP. form increased HR with RVR. rate better controlled (6) Right clavicle fracture Code(s): S42.001A - FRACTURE OF UNSP PART OF RIGHT CLAVICLE, INIT FOR CLOS FX Status: Acute Qualifiers: Encounter type: initial encounter Clavicle location: sternal end Fracture type: closed Fracture alignment: nondisplaced Qualified Code(s): S42.017A - Nondisplaced fracture of sternal end of right clavicle, initial encounter for closed fracture Comment: minimal displacement, shoulder sling (7) Paroxysmal atrial fibrillation with RVR Code(s): I48.0 - PAROXYSMAL ATRIAL FIBRILLATION Status: Chronic Comment: in Afib/flutter on the monitor. Rate better controlled. On amio gtt. continue for now. Looks like he may be tryin gto organize and convert. Not an anticoagulation candidate due to falls - Plan plan discussed w/ family, continue antibiotics, PT/OT, perinatal social worker, respiratory therapy, DVT proph w/SCDs Stable currently -: Continue bronchodilators -: Continue Solumedrol and Cefepime -: PT/OT for mobilization -: Continue Amiodarone gtt * Pain control * AM lab: BMP, CBC * Likely transition to tele in 24h
[2017-01-18] MEDS ORDERED: Acetaminophen/Codeine 30-300mg Tablet PO PRN (17:10)
[2017-01-18] MEDS: Tamsulosin HCl 0.4 MG CAP PO SCH (20:29)
[2017-01-18] MEDS: Acetaminophen/Codeine 30-300mg Tablet PO PRN (20:30)
[2017-01-18] MEDS ORDERED: Carvedilol 6.25 MG TAB PO SCH (21:00)
[2017-01-18] MEDS ORDERED: Famotidine/PF 20 mg/2ml Vial SLOW IVP SCH (21:00)
[2017-01-19] MEDS: Acetaminophen/Codeine 30-300mg Tablet PO PRN ×3 (03:16→17:08)
[2017-01-19] MEDS: Cefepime 1 GM, Admixture Fee 1 EACH in Sterile Water 10 ML SLOW IVP SCH ×2 (03:19→16:09)
[2017-01-19 04:54] LABS: Anion Gap 10 mmol/L (10-20); BUN (Urea Nitrogen) 54 mg/dL (8.4-25.7); Calc. Creatinine Clearance 35 mL/min (70-130); Calcium 8.3 mg/dL (7.8-10.44); Carbon Dioxide 28 mmol/L (23-31); Chloride 103 mmol/L (98-107); Estimated GFR-MDRD 40
[2017-01-19] MEDS: Amiodarone HCl 450 MG, Admixture Fee 1 EACH in Dextrose 5% in Water 250 ML IVPB SCH ×6 (05:13→19:34)
[2017-01-19 05:16] LABS: Hematocrit 22.2 % (42.0-52.0); Mean Platelet Volume 8.8 fL (7.4-10.4); Neutrophil 96 % (42-75); Red Blood Cell (RBC) Count 2.19 mill/uL (4.70-6.10); White Blood Cell (WBC) Count 19.7 thou/uL (4.8-10.8)
[2017-01-19] MEDS: Ferrous Sulfate 325 MG TAB PO SCH ×2 (07:59→16:54)
[2017-01-19] MEDS: Folic Acid 1 MG TAB PO SCH (08:00)
[2017-01-19] MEDS: Gabapentin 300 MG CAP PO SCH ×2 (08:00→21:16)
[2017-01-19] MEDS: Carvedilol 3.125 MG TAB PO SCH ×2 (08:00→21:16)
[2017-01-19] MEDS: Enoxaparin Sodium 40 MG/0.4 ML SYRINGE SC SCH (08:00)
--- NOTE | 2017-01-19 10:21 | RAD ---
PORTABLE CHEST: History: Respiratory distress. Comparison: Prior day's exam. FINDINGS: Endotracheal tube has been removed. Heart size is within normal limits. Pleural and parenchymal lung changes are stable. IMPRESSION: Interval removal of the endotracheal tube, otherwise stable exam. POS: [facility]
--- NOTE | 2017-01-19 13:39 | PDOC.PN ---
- Subjective Encounter Start Date: 01/19/17 Encounter Start Time: 13:15 Subjective: f/u for R hip fx s/p ORIF POD #1. A-fib RVR on Amiodarone now rate -: controlled. Receiving 2u PRBC's currently. No new complaints. - Objective Resuscitation Status: Resuscitation Status DNR:Do Not Resuscitate MAR Reviewed: Yes Vital Signs & Weight: Vital Signs (12 hours) Temp Pulse Resp Pulse Ox 01/19/17 13:18 72 24 H 98 01/19/17 12:00 98.5 F 01/19/17 07:22 97.7 F 65 17 97 01/19/17 07:04 99 01/19/17 07:01 63 26 H 99 01/19/17 07:00 97.7 F 01/19/17 04:00 98.1 F 01/19/17 03:16 79 16 96 Weight Admit Weight 157 lb Weight 157 lb Most Recent Monitor Data Heart Rate from ECG 69 NIBP 120/49 NIBP BP-Mean 74 Respiration from ECG 15 SpO2 100 I&O: 01/18/17 01/19/17 01/20/17 06:59 06:59 06:59 Intake Total 252.8 2615 590 Output Total 1050 775 260 Balance -797.2 1840 330 Result Diagrams: 01/19/17 04:22 01/19/17 04:22 Additional Labs: Laboratory Tests 01/16/17 01/16/17 01/17/17 18:28 18:28 03:44 WBC 32.9 H Hgb 12.4 L Creatinine 0.95 1.46 H 01/17/17 01/18/17 01/18/17 03:44 04:53 04:53 WBC 18.2 H 20.7 H Hgb 10.6 L 8.6 L Creatinine 1.47 H Radiology Reviewed by me: Yes (PCXR - no acute infiltrates) EKG Reviewed by me: Yes (Tele - A-fib in 70's) Phys Exam - Physical Examination Constitutional: NAD HEENT: PERRLA, oral pharynx no lesions Neck: no JVD, supple wheezing noted Cardiovascular: irregular Gastrointestinal: soft, non-tender, no distention, positive bowel sounds R hip with edema and surgical dressing in place Musculoskeletal: pulses present Neurological: normal sensation, moves all 4 limbs Psychiatric: A&O x 3 Skin: normal turgor, cap refill <2 seconds Dx/Plan (1) Fracture of femoral neck, right, closed Code(s): S72.001A - FRACTURE OF UNSP PART OF NECK OF RIGHT FEMUR, INIT Status : Acute Comment: s/p R hip ORIF POD#1, pain control, DVT ppx, rehab screening (2) ERIKA (acute kidney injury) Code(s): N17.9 - ACUTE KIDNEY FAILURE, UNSPECIFIED Status: Acute Comment: Persistent, IVF's, avoid nephrotoxic meds, limit NSAIDs (3) CAD (coronary artery disease) Code(s): I25.10 - ATHSCL HEART DISEASE OF [place] CORONARY ARTERY W/O ANG PCTRS Status: Chronic Qualifiers: Coronary Disease-Associated Artery/Lesion type: [place] artery [place] vs. transplanted heart: [place] heart Associated angina: without angina Qualified Code(s): I25.10 - Atherosclerotic heart disease of [place] coronary artery without angina pectoris Comment: Stable, (4) COPD (chronic obstructive pulmonary disease) Status: Acute Qualifiers: COPD type: emphysema Emphysema type: panlobular Qualified Code(s): J43.1 - Panlobular emphysema Comment: on scheduled duonebs, oral steroids, PRN albuterol. Pulm on the case, discusse dith Dr Forrest his [facility] Lung specialist, continue Cefepime, Solumedrol, Duonebs (5) Demand ischemia Code(s): I24.8 - OTHER FORMS OF ACUTE ISCHEMIC HEART DISEASE Status: Acute Comment: barely elevated troponin, no CP. form increased HR with RVR. rate better controlled (6) Right clavicle fracture Code(s): S42.001A - FRACTURE OF UNSP PART OF RIGHT CLAVICLE, INIT FOR CLOS FX Status: Acute Qualifiers: Encounter type: initial encounter Clavicle location: sternal end Fracture type: closed Fracture alignment: nondisplaced Qualified Code(s): S42.017A - Nondisplaced fracture of sternal end of right clavicle, initial encounter for closed fracture Comment: minimal displacement, shoulder sling (7) Paroxysmal atrial fibrillation with RVR Code(s): I48.0 - PAROXYSMAL ATRIAL FIBRILLATION Status: Chronic Comment: in Afib/flutter on the monitor. Rate better controlled. On amio gtt. continue for now, Cardiology consult, no anticoagulation due to falls and acute anemia - Plan PT/OT, psych social worker, respiratory therapy, out of bed/ambulate, DVT proph w/ SCDs Stable overall -: Continue Amiodarone gtt for rate control -: Transfuse 2u PRBC's today -: Rehab screen -: Transfer to Tele * AM labs: BMP, CBC
--- NOTE | 2017-01-19 14:27 | CON ---
DATE OF CONSULTATION: 01/19/2017 REASON FOR CONSULTATION: Atrial fibrillation. REFERRING PROVIDER: Nigel Forrest M.D. HISTORY OF PRESENT ILLNESS: Mr. Cao is a pleasant 81-year-old gentleman, who has been seen and evaluated by Cardiology in [place], [place]. He recently presented with a fractured hip and clavicl e. He underwent successful surgery on 01/17/2017. He developed atrial fibrillation in addition to a nemia. He has no current symptoms. No chest pain, pressure, shortness of breath or other associated symptoms. PAST MEDICAL HISTORY: [place] 25 years ago, CAD, BPH, hypertension, and COPD. PAST SURGICAL HISTORY: Carotid endarterectomy, decortication of his lung. HOME MEDICATIONS: Include Crestor, Protonix, DuoNeb, gabapentin, folic acid, Coreg, aspirin, and Tyl enol. ALLERGIES: None. REVIEW OF SYSTEMS: Ten-point review of systems is reviewed and is as above negative. PHYSICAL EXAMINATION: GENERAL: Patient is a pleasant male who is in no acute distress. The patient appears his stated age . VITAL SIGNS: Blood pressure 110/70, pulse 80, respiratory rate 20, and heart rate 72. NEUROLOGIC: The patient is alert and oriented times 3 with no focal neurologic deficits. HEENT: Sclerae without icterus. Mouth has moist mucous membranes with normal pallor. NECK: No JVD. Carotid upstroke brisk. No bruits bilaterally. LUNGS: Clear to auscultation with unlabored respirations. BACK: No scoliosis or kyphosis. CARDIAC: Regular rate and rhythm with extra systolic beats. ABDOMEN: Soft, nontender, nondistended. No peritoneal signs present. No hepatosplenomegaly. No ab normal striae. EXTREMITIES: 2+ femoral and 2+ dorsalis pedis pulses. No cyanosis, clubbing, or edema. SKIN: No gross abnormalities. LABORATORY DATA: Hemoglobin 7.1. Creatinine 1.66. IMPRESSION: 1. Atrial fibrillation with rapid ventricular response, now sinus with PAC. 2. Coronary artery disease. 3. Anemia. 4. Recent hip fracture. RECOMMENDATIONS: Unknown whether atrial fibrillation is due to a recent demise with a hip fracture a nemia versus intermittent paroxysmal atrial fibrillation. At this point, he continues to be in sinus rhythm. We will continue amiodarone drip at this point. He does have a history of CAD and may be a candidate for Multaq versus amiodarone therapy. The other option includes a 3-week event recorder a nd reassess in 1 month. Echo with Doppler also recommended. Otherwise, I have no recommendations.
--- NOTE | 2017-01-19 20:51 | PRG ---
DATE OF SERVICE: 01/19/2017 SUBJECTIVE: Mr. Cao is doing reasonably well. He has no complaints surprisingly of his clavic le fracture. He said he could not shoot a deer rifle, but other than that he is doing fine. OBJECTIVE: VITAL SIGNS: He is afebrile. Heart rate 64, respiratory rate is 20, oximetry is 98% on 2 liters an d blood pressure 125/57. LUNGS: Free of wheezes. HEART: Regular rhythm. ABDOMEN: Soft and nontender. EXTREMITIES: His feet are warm. IMPRESSION: 1. Status post surgical repair. 2. Chronic atrial fibrillation. 3. Chronic obstructive pulmonary disease. 4. History of an empyema with a chronic indwelling chest tube. PLAN: Continue with therapy, wound, respiratory therapy. Transfuse 2 units of packed cells today. Given his multiple medical problems, I do not think he will tolerate ongoing significant anemia.
[2017-01-19] MEDS: Tamsulosin HCl 0.4 MG CAP PO SCH (21:16)
[2017-01-19] MEDS: Atorvastatin Calcium 40 MG TAB PO SCH (21:16)
[2017-01-19] MEDS: Famotidine 20 MG TAB PO SCH (21:16)
[2017-01-20] MEDS: Acetaminophen/Codeine 30-300mg Tablet PO PRN ×3 (01:28→20:16)
[2017-01-20] MEDS: Cefepime 1 GM, Admixture Fee 1 EACH in Sterile Water 10 ML SLOW IVP SCH ×2 (03:47→15:48)
[2017-01-20 04:27] LABS: Anion Gap 9 mmol/L (10-20); BUN (Urea Nitrogen) 44 mg/dL (8.4-25.7); Band 3 % (5-11); Calc. Creatinine Clearance 53 mL/min (70-130); Calcium 8.4 mg/dL (7.8-10.44); Carbon Dioxide 30 mmol/L (23-31); Chloride 104 mmol/L (98-107); Estimated GFR-MDRD 64; Hematocrit 26.9 % (42.0-52.0); Mean Platelet Volume 8.1 fL (7.4-10.4); Neutrophil 97 % (42-75); Red Blood Cell (RBC) Count 2.77 mill/uL (4.70-6.10); White Blood Cell (WBC) Count 15.6 thou/uL (4.8-10.8)
--- NOTE | 2017-01-20 08:15 | RAD ---
PORTABLE SEMIUPRIGHT FRONTAL CHEST RADIOGRAPH: DATE: 01/20/17. COMPARISON: 01/19/17. HISTORY: Ventilated patient. FINDINGS: No endotracheal tube is present. Extensive linear interstitial density noted with pulmonary hyperinf lation, stable. Loop recorder overlies the left hilar shadow, stable. There is volume loss involving the right hemithorax with circumferential right pleural thickening, st able. Blunting of costophrenic angle again noted on the right. There is an obliquely oriented mildl y displaced distal right clavicle fracture. IMPRESSION: Stable chronic findings as detailed above. POS: [facility]
[2017-01-20] MEDS: Ferrous Sulfate 325 MG TAB PO SCH ×2 (09:08→17:08)
[2017-01-20] MEDS: Carvedilol 3.125 MG TAB PO SCH ×2 (09:08→20:15)
[2017-01-20] MEDS: Gabapentin 300 MG CAP PO SCH ×2 (09:09→20:15)
[2017-01-20] MEDS: Folic Acid 1 MG TAB PO SCH (09:09)
[2017-01-20] MEDS: Enoxaparin Sodium 40 MG/0.4 ML SYRINGE SC SCH (09:09)
[2017-01-20] MEDS ORDERED: traMADol HCl 50 MG TAB PO PRN ×2 (09:23)
--- NOTE | 2017-01-20 10:30 | PRG ---
DATE OF SERVICE: 01/20/2017 Mr. Cao is still on IV amiodarone. PHYSICAL EXAMINATION: VITAL SIGNS: His heart rate is 62, respiratory rate is 19, oximetry is 96 on 2 liters, blood pressur e 131/51. LUNGS: Lungs are clear. HEART: Regular rhythm. ABDOMEN: Abdomen is soft. EXTREMITIES: His feet are warm. LABORATORY: White count is 15.6, hemoglobin 8.6, platelets 150,000. Sodium 138, potassium 4.8, chlo ride 104, bicarb 30, BUN 44, creatinine 1.11. IMPRESSION: 1. Status post multiple fractures after a fall. 2. Blood loss anemia. His hemoglobin was 8.6 today. 3. Prerenal azotemia related to his blood loss, that has improved. 4. Chronic obstructive pulmonary disease with chronic respiratory failure on oxygen. 5. Atrial fibrillation which has been followed by a car retarder operator in [place]. PLAN: He is stable to move out of the Critical Care Unit if Cardiology agrees. Rehab placement will be the next step.
--- NOTE | 2017-01-20 11:27 | PRG ---
DATE OF SERVICE: 01/20/2017 SUBJECTIVE: Mr. Cao is doing better. He is back in sinus rhythm with PACs. He is currently o n IV amiodarone. PHYSICAL EXAMINATION: VITAL SIGNS: Blood pressure 130/51, pulse 67, temperature 98.8. LUNGS: Clear to auscultation. CARDIAC: Regular rate and rhythm with extra systolic beats. ABDOMEN: Soft, nontender, nondistended. EXTREMITIES: No edema. IMPRESSION: 1. Atrial fibrillation, now sinus rhythm. 2. Recent hip fracture. 3. Coronary artery disease, status post myocardial infarction. RECOMMENDATIONS: It may be prudent to continue to watch Mr. Cao on telemetry monitoring to ass ess for any further episodes of atrial fibrillation. This may have been precipitated by recent traum a. Will likely recommend close outpatient monitoring. He has an implantable loop recorder which we can follow to assess for paroxysmal atrial fibrillation. It would be okay from my standpoint to rosas sfer to telemetry.
[2017-01-20] MEDS: Amiodarone HCl 450 MG, Admixture Fee 1 EACH in Dextrose 5% in Water 250 ML IVPB SCH ×3 (11:57)
--- NOTE | 2017-01-20 14:00 | PDOC.PN ---
- Subjective Encounter Start Date: 01/20/17 Encounter Start Time: 13:40 Subjective: f/u for A-fib RVR on previous Amiodarone now d/c'd. Feels better and -: breathing better. s/p 2u PRBC's with stable H/H. Minimal R hip pain and -: working with PT for ambulation. - Objective Resuscitation Status: Resuscitation Status DNR:Do Not Resuscitate MAR Reviewed: Yes Vital Signs & Weight: Vital Signs (12 hours) Temp Pulse Resp Pulse Ox 01/20/17 13:42 64 15 96 01/20/17 12:00 97.9 F 01/20/17 08:00 97.8 F 57 L 19 97 01/20/17 07:40 62 19 96 01/20/17 04:00 98.2 F Weight Admit Weight 157 lb Weight 157 lb Most Recent Monitor Data Heart Rate from ECG 67 NIBP 153/59 NIBP BP-Mean 97 Respiration from ECG 23 SpO2 94 I&O: 01/19/17 01/20/17 01/21/17 06:59 06:59 06:59 Intake Total 2615 1881 350 Output Total 775 1600 440 Balance 1840 281 -90 Result Diagrams: 01/20/17 03:55 01/20/17 03:55 Additional Labs: Laboratory Tests 01/16/17 01/16/17 01/17/17 18:28 18:28 03:44 WBC 32.9 H Hgb 12.4 L Creatinine 0.95 1.46 H 01/17/17 01/18/17 01/18/17 03:44 04:53 04:53 WBC 18.2 H 20.7 H Hgb 10.6 L 8.6 L Creatinine 1.47 H 01/19/17 01/19/17 04:22 04:22 WBC 19.7 H Hgb 7.1 L Creatinine 1.66 H Radiology Reviewed by me: Yes (PCXR - no acute findings) EKG Reviewed by me: Yes (Tele - SR in 60's) Phys Exam - Physical Examination Constitutional: NAD alert, talkative HEENT: PERRLA, oral pharynx no lesions Neck: no JVD, supple Respiratory: no wheezing, clear to auscultation bilateral Cardiovascular: RRR Gastrointestinal: soft, non-tender, no distention, positive bowel sounds R hip with surgical dressing in place, + edema Musculoskeletal: pulses present Neurological: normal sensation, moves all 4 limbs Psychiatric: A&O x 3 Skin: normal turgor, cap refill <2 seconds Dx/Plan (1) Fracture of femoral neck, right, closed Code(s): S72.001A - FRACTURE OF UNSP PART OF NECK OF RIGHT FEMUR, INIT Status : Acute Comment: s/p R hip ORIF POD#2, pain control, DVT ppx, rehab transfer when medicall stabilized (2) ERIKA (acute kidney injury) Code(s): N17.9 - ACUTE KIDNEY FAILURE, UNSPECIFIED Status: Acute Comment: Resolved, avoid nephrotoxic meds, limit NSAIDs (3) CAD (coronary artery disease) Code(s): I25.10 - ATHSCL HEART DISEASE OF [place] CORONARY ARTERY W/O ANG PCTRS Status: Chronic Qualifiers: Coronary Disease-Associated Artery/Lesion type: [place] artery [place] vs. transplanted heart: solomon heart Associated angina: without angina Qualified Code(s): I25.10 - Atherosclerotic heart disease of [place] coronary artery without angina pectoris Comment: Stable, (4) COPD (chronic obstructive pulmonary disease) Status: Acute Qualifiers: COPD type: emphysema Emphysema type: panlobular Qualified Code(s): J43.1 - Panlobular emphysema Comment: on scheduled duonebs, oral steroids, PRN albuterol. Pulm on the case, [facility] dith [facility], continue Cefepime, Solumedrol, Duonebs (5) Demand ischemia Code(s): I24.8 - OTHER FORMS OF ACUTE ISCHEMIC HEART DISEASE Status: Acute Comment: barely elevated troponin, no CP. form increased HR with RVR. rate better controlled (6) Right clavicle fracture Code(s): S42.001A - FRACTURE OF UNSP PART OF RIGHT CLAVICLE, INIT FOR CLOS FX Status: Acute Qualifiers: Encounter type: initial encounter Clavicle location: sternal end Fracture type: closed Fracture alignment: nondisplaced Qualified Code(s): S42.017A - Nondisplaced fracture of sternal end of right clavicle, initial encounter for closed fracture Comment: minimal displacement, shoulder sling prn, ROM exercises as tolerated (7) Paroxysmal atrial fibrillation with RVR Code(s): I48.0 - PAROXYSMAL ATRIAL FIBRILLATION Status: Chronic Comment: Resolved, Amiodarone po, no anticoagulation due to falls and acute anemia - Plan plan discussed w/ family, PT/OT, social studies department chair, respiratory therapy, out of bed/ambulate, DVT proph w/SCDs Stable overall -: Continue rate control with Amiodarone po -: Follow H/H levels -: Rehab transfer when medically optimized -: Continue Coreg 3.125mg BID * AM lab: BMP, CBC * Transfer to telemetry unit
[2017-01-20] MEDS: Atorvastatin Calcium 40 MG TAB PO SCH (20:15)
[2017-01-20] MEDS: Famotidine 20 MG TAB PO SCH (20:15)
[2017-01-20] MEDS: Tamsulosin HCl 0.4 MG CAP PO SCH (20:15)
[2017-01-21] MEDS: Acetaminophen/Codeine 30-300mg Tablet PO PRN ×3 (02:17→14:00)
[2017-01-21] MEDS: Cefepime 1 GM, Admixture Fee 1 EACH in Sterile Water 10 ML SLOW IVP SCH (04:52)
[2017-01-21 05:43] LABS: Anion Gap 8 mmol/L (10-20); BUN (Urea Nitrogen) 39 mg/dL (8.4-25.7); Calc. Creatinine Clearance 57 mL/min (70-130); Calcium 8.1 mg/dL (7.8-10.44); Carbon Dioxide 30 mmol/L (23-31); Chloride 105 mmol/L (98-107); Estimated GFR-MDRD 70
[2017-01-21 07:01] LABS: Hematocrit 25.7 % (42.0-52.0); Mean Platelet Volume 8.6 fL (7.4-10.4); Red Blood Cell (RBC) Count 2.64 mill/uL (4.70-6.10); White Blood Cell (WBC) Count 12.8 thou/uL (4.8-10.8)
[2017-01-21 07:53] LABS: Anisocytosis SLIGHT = 6-15 cells (100X) (0-5/hpf); Band 1 % (5-11); Macrocytosis SLIGHT = 6-15 cells (100X) (0-5/hpf); Neutrophil 97 % (42-75); Schistocytes SLIGHT = 2-5 cells (100X) (0-1/hpf)
[2017-01-21] MEDS: Ferrous Sulfate 325 MG TAB PO SCH (08:32)
[2017-01-21] MEDS: Folic Acid 1 MG TAB PO SCH (08:33)
[2017-01-21] MEDS: Enoxaparin Sodium 40 MG/0.4 ML SYRINGE SC SCH (08:33)
[2017-01-21] MEDS: Carvedilol 3.125 MG TAB PO SCH (08:33)
[2017-01-21] MEDS: Gabapentin 300 MG CAP PO SCH (08:33)
--- NOTE | 2017-01-21 10:09 | PRG ---
DATE OF SERVICE: 01/21/2017 SUBJECTIVE: Asael Cao has done well overnight. He has no complaints. He woke up little con gested, but feels better after neb treatment. Encouraged him to sit up in the chair more today, he w alked twice yesterday. PHYSICAL EXAMINATION: VITAL SIGNS: He is afebrile, heart rate 60, respiratory rate 16, oximetry is 100% on 2 liters, blood pressure 133/63. LUNGS: Clear. HEART: Irregular rhythm, rate controlled. ABDOMEN: Soft and nontender. LABORATORY DATA: White count is 12.8, hemoglobin is 8.4. It would not be unreasonable to give him another unit of blood as I discussed with Dr. Conroy, the spitalist. I do think he is stable to go over to rehabilitation soon. His renal function is back to his baseline normal state. Hopefully we can get him more if his gait i s more stable. The biggest problem facing and moving down the road is he is completely inactive at h ome and refuses to do any kind of exercise. I will be happy to see him in follow up once he is out o f rehabilitation.
--- NOTE | 2017-01-21 11:27 | PDOC.CTH ---
Cardiology Progress Note - Subjective No new issues overnight. Remains in sinus rhythm with PACs. No CV complaints. Tolerating current medical therapy. ROS otherwise negative. - Objective Vital Signs Temp Pulse Pulse Resp BP BP Pulse Ox 01/21/17 11:21 98.3 F 60 18 160/74 H 01/21/17 11:06 98.2 F 60 16 158/70 H 94 L 01/21/17 08:28 100 01/21/17 08:26 68 16 01/21/17 07:54 98.7 F 53 L 16 133/63 99 01/21/17 04:00 97.5 F L 90 20 115/59 L 98 01/21/17 00:14 64 12 Admit Weight 157 lb Weight 165 lb 8 oz 01/20/17 01/21/17 01/22/17 06:59 06:59 06:59 Intake Total 1881 850 0 Output Total 1600 890 Balance 281 -40 0 - Physical Examination General/Neuro: alert & oriented x3, NAD Neck: carotid US brisk, no JVD present Lungs: CTA, unlabored respirations Heart: PMI normal, RRR Abdomen: no HSM, NT/ND, soft Extremities: other: (2+ pulses, no edema) Other PE findings: Neuro: no focal motor defs - Telemetry Telemetry Rhythm: sinus with PACs - Labs Result Diagrams: 01/21/17 04:36 01/21/17 04:36 Troponin/CKMB CK-MB (CK-2) 1.7 ng/mL (0-6.6) 01/16/17 18:28 Troponin I 0.042 ng/mL (< 0.028) H 01/17/17 00:16 - Assessment/Plan 1. PAF: sinus on amiodarone. Continue oral therapy. Follow up with Dr. Gordon in week following discharge. 2. Hip fracture: stable. 3. COPD: stable currently.
--- NOTE | 2017-01-21 13:38 | DIS ---
DATE OF ADMISSION: 01/16/2017 DATE OF DISCHARGE: 01/21/2017 DISCHARGE DIAGNOSES: 1. Fall from same level as cause of accidental injury. 2. Right displaced femoral neck fracture. 3. Paroxysmal atrial fibrillation. 4. Atrial fibrillation with rapid ventricular response. 5. Chronic obstructive pulmonary disease with acute exacerbation. 6. Acute on chronic hypoxemic respiratory failure. 7. Right traumatic clavicular fracture, distal with minimal angulation and displacement. 8. Benign prostatic hypertrophy. 9. Urinary retention. 10. Acute kidney injury. 11. History of coronary artery disease without angina. 12. Essential hypertension. 13. Peripheral neuropathy. 14. Demand ischemia. CONSULTATIONS: 1. Cardiology, Dr. Gordon on 01/19/2017. 2. Pulmonary and Critical Care, Dr. Nelson per Dr. Forrest. 3. Orthopedics, Dr. Villa Bah. 4. Trauma team by Dr. Kelli Aguilar. PROCEDURES: On 01/17/2017, monopolar hemiarthroplasty by Dr. Villa Bah with logging assistant, Tashi Francois . HISTORY AND PHYSICAL: Mr. Cao is a pleasant 81-year-old gentleman whom I admitted back on 01/05 and has presented in the Emergency Department for a fall and hip pain. Evaluation showed atrial fibrillation with rapid ventricular response with heart rate in the 140s to 170s, right hip fracture, and the right clavicular fracture. We were called for admission, Trauma wa s consulted as well as orthopedic consultation was placed by the emergency room. HOSPITAL COURSE: The patient was seen by me in the emergency department. He was admitted to the [facility] due to atrial fibrillation with RVR. He was started on amiodarone per Dr. Licona's request, with improvement in his heart rate. He had no chest pain. Cardiac biomarkers are mildly elevated due to demand from increased heart rate and COPD was stable. Continue on nebulizer treatments and started o n IV steroids. Continue Flomax for urinary retention. Overnight on 01/16/2017 to 01/17/2017, the patient was retaining urine. Cardona catheter was placed in anticipation of surgery anyways and medically heart rate was under better control. Labs remained ot herwise stable. He was taken to the operating room on 01/17/[address] Bah for hemiarthroplasty. Patient tolerated the procedure well with no known intraoperative complications. The patient was s een postoperatively in consultation by Pulmonary and Critical Care for his stay in the intermediate c are unit, he was continued on vent support overnight on 01/17/2017 to 01/18/2017 continued on IV Medr ol. By 01/18/2017, the patient was taken to OR by Dr. Casas for our service. The patient has remained sta ble. Creatinine remained slightly elevated from his baseline, remained afebrile. Cardiology was con sulted and saw the patient on 01/19/2017. Overnight on 01/18/2017 to 01/19/2017, patient remained st able, but still in atrial fibrillation. He was seen by Dr. Gordon in 01/19/2017, but the patient had converted to sinus rhythm. He is to continue on amiodarone and converted to p.o. Recommended 2D echocardiogram which does not look like it has been ordered. By 01/20/2017, the patient remained stable. Creatinine down to 1.11. Hemoglobin down to 8.6 and EXECUTIVE PASTRY CHEF D remained stable. He has been down onto the critical care unit to the floor and on overnight on and 01/21/2017 remained without event. Today, his hemoglobin was slightly down to 8.4. Given his recent fibrillation with RVR, the patient was given 1 final unit of packed red blood cells. He tolerated the transfusion well and post-procedu re, was accepted and stable for transfer to inpatient rehabilitation for rehabilitation. DISCHARGE PHYSICAL EXAMINATION: The patient was seen and examined on the day of discharge. Discharg e plan and disposition were discussed with the patient face to face at the bedside. DISCHARGE MEDICATIONS: 1. Amiodarone 200 mg p.o. b.i.d., new medication. 2. Tylenol No. 3 one to two p.o. q.6 hours p.r.n. moderate to severe pain. 3. Albuterol 2.5 mg nebulizer every 2 hours as needed for shortness of breath. 4. DuoNeb scheduled q.6 hours. 5. Aspirin 81 mg daily. 6. Lipitor 40 mg daily. 7. Carvedilol 3.125 mg p.o. b.i.d. 8. Iron sulfate 325 mg p.o. b.i.d. 9. Folic acid 1 mg daily. 10. Gabapentin 600 mg b.i.d. 11. Protonix 40 mg p.o. q.a.m. 12. Prednisone 10 mg daily. 13. Flomax 0.4 mg p.o. at bedtime. 14. Temazepam 50 mg p.o. at bedtime p.r.n. insomnia. 15. Tramadol on hold. FOLLOWUP APPOINTMENTS: 1. Cardiology within a week. 2. Primary care physician within a week. 3. Dr. Forrest in 1-2 weeks. 4. Follow up with his intelligence applications as necessary. DISCHARGE DIET: Heart healthy. DISCHARGE ACTIVITY: Per cardiopulmonary and orthopedic limitations. DISCHARGE THERAPIES: Physical therapy and occupational therapy while at inpatient rehabilitation. DISCHARGE CONDITION: Stable. DISPOSITION: Being discharged to [facility] inpatient rehabilitation. INSTRUCTIONS: Return to Emergency Department for chest pain, difficulty breathing or new problems.
[2017-01-21 13:59] VITALS: BP 179/81; TEMP 97.9
== END 2017-01-21 16:06 | DRG 469 ==
LOC: ERS 17:57 → IMCU/EMU 18:57 → CCU 01-17 14:33 → 2NO 01-20 21:17
PROVIDERS: ADMIT Internal Medicine Infectious Disease; ATTEND Internal Medicine Infectious Disease
PROC: 0SRR0JA Replacement of Right Hip Joint, Femoral Surface with Synthetic Substitute, Uncemented, Open Approach (ICD-10-PCS; principal; 2017-01-17)
PROC: 5A1945Z Respiratory Ventilation, 24-96 Consecutive Hours (ICD-10-PCS; 2017-01-17)
PROC: 30233N1 Transfusion of Nonautologous Red Blood Cells into Peripheral Vein, Percutaneous Approach (ICD-10-PCS; 2017-01-19)
PROC: 30233N1 Transfusion of Nonautologous Red Blood Cells into Peripheral Vein, Percutaneous Approach (ICD-10-PCS; 2017-01-21)
DX: S72.011A Unspecified intracapsular fracture of right femur, initial encounter for closed fracture (principal); J96.21 Acute and chronic respiratory failure with hypoxia; N17.9 Acute kidney failure, unspecified; J90 Pleural effusion, not elsewhere classified; I48.0 Paroxysmal atrial fibrillation; G62.9 Polyneuropathy, unspecified; I24.8 Other forms of acute ischemic heart disease; Z99.81 Dependence on supplemental oxygen; I10 Essential (primary) hypertension; J43.1 Panlobular emphysema; S42.031A Displaced fracture of lateral end of right clavicle, initial encounter for closed fracture; G89.11 Acute pain due to trauma; D50.0 Iron deficiency anemia secondary to blood loss (chronic); N40.1 Benign prostatic hyperplasia with lower urinary tract symptoms; R33.8 Other retention of urine; I25.10 Atherosclerotic heart disease of native coronary artery without angina pectoris; W01.0XXA Fall on same level from slipping, tripping and stumbling without subsequent striking against object, initial encounter; Z91.81 History of falling; I73.9 Peripheral vascular disease, unspecified; Z79.52 Long term (current) use of systemic steroids; I25.2 Old myocardial infarction; F17.220 Nicotine dependence, chewing tobacco, uncomplicated; E78.5 Hyperlipidemia, unspecified
CPT/HCPCS: 36415; 36430; 71010; 80048; 80053; 82553; 82805; 83735; 84100; 84484; 85007; 85025; 85027; 85610; 85730; 86850; 86900; 86901; 93005; 94002; 94003; 94640; 94760; 96361; 96365; 96375; 99406; A4216; G0390; G8978-GP-CM; G8979-GP-CK; G8987-GO-CM; G8988-GO-CK; J0282; J0692; J1650; J1720; J2001; J2270; J2405; J2704; J2920; J3010; J7070; J7611; J7620; P9016; S0028

== ENCOUNTER 2017-03-04 13:51 | Inpatient (IN) | payer MEDICARE ==
[2017-03-04 14:30] LABS: Hemoglobin 10.9 g/dL (14.0-18.0); Mean Corpuscular HGB CONC 30.6 g/dL (32.0-36.0); Mean Corpuscular Hemoglobin 31.4 pg (27.0-31.0); Mean Platelet Volume 7.3 fL (7.4-10.4); Platelet Count 352 thou/uL (130-400); RBC Distribution Width 17.7 % (11.5-14.5); Red Blood Cell (RBC) Count 3.48 mill/uL (4.70-6.10); White Blood Cell (WBC) Count 24.6 thou/uL (4.8-10.8)
[2017-03-04 14:46] LABS: ALT (SGPT) Less than 7 U/L (8-55); AST (SGOT) 8 U/L (5-34); Albumin 3.2 g/dL (3.4-4.8); Alkaline Phosphatase 79 U/L (40-150); Anion Gap 12 mmol/L (10-20); BUN (Urea Nitrogen) 17 mg/dL (8.4-25.7); Bilirubin, Total 0.9 mg/dL (0.2-1.2); Calc. Creatinine Clearance 0 mL/min (70-130); Calcium 8.7 mg/dL (7.8-10.44); Carbon Dioxide 29 mmol/L (23-31); Chloride 104 mmol/L (98-107); Estimated GFR-MDRD 60; Globulin 2.8 g/dL (2.4-3.5); Glucose 81 mg/dL (83-110); Potassium 3.9 mmol/L (3.5-5.1); Sodium 141 mmol/L (136-145)
[2017-03-04 14:47] LABS: Anisocytosis SLIGHT = 6-15 cells (100X) (0-5/hpf); Band 8 % (5-11); Eosinophils 1 % (0-10); Lymphocytes 12 % (21-51); MDiff Complete? YES; Macrocytosis SLIGHT = 6-15 cells (100X) (0-5/hpf); Monocytes 6 % (0-10); Neutrophil 73 % (42-75); Ovalocytes SLIGHT = 2-5 cells (100X) (0-1/hpf); PLT Morphology Comment Appears Adequate; Polychromasia SLIGHT = 2-3 cells (100X) (0-2/hpf); Schistocytes SLIGHT = 2-5 cells (100X) (0-1/hpf); Spherocytes SLIGHT = 1-5 cells (100X) (None Seen)
--- NOTE | 2017-03-04 15:05 | RAD ---
UPRIGHT PORTABLE CHEST ONE VIEW: HISTORY: An 81-year-old male with cough and sepsis. COMPARISON: 01/26/2017 FINDINGS: A loop recorder overlies the left chest. There are pleural and parenchymal opacity changes in the ri ght base, which some associated fluoroscopy, as well as some right apical pleural thickening, showing little change from prior studies, dating back to 01/19/2017. There is left apical pleural thickenin g. Mild hyperinflation in the left lung. IMPRESSION: Stable appearing pleural and parenchymal opacity changes in the right base with some volume loss. Bi apical pleural thickening, worse on the right side, with some associated right-sided volume loss. Ol d distal right clavicle fracture. No evidence for new confluent process or overt edema. POS: [facility]
[2017-03-04 15:32] LABS: Bilirubin Negative (Negative); Blood, Urine Negative (Negative); Clarity CLEAR (Clear); Glucose, Urine (Dipstick) Negative (Negative); Leukocyte Negative (Negative); Nitrite Negative (Negative); Protein, Urine (Dipstick) Negative (Neg-Trace); Specific Gravity, Urine 1.017 (1.002-1.036)
[2017-03-04] MEDS ORDERED: Ketorolac Tromethamine 30 MG/ML VIAL ONE (15:40)
--- NOTE | 2017-03-04 16:23 | RAD ---
RIGHT HIP TWO VIEW 03/04/17 HISTORY: Pain. COMPARISON: None. FINDINGS: Relative to the prior examination, the soft tissue fullness of the right lateral thigh has markedly i ncreased. There is no evidence of hardware fracture or malalignment. The superior and inferior pubic rami are intact. IMPRESSION: Interval increase in soft tissue fullness over the right thigh from the comparison examination. Recom mend clinical correlation for pain and tenderness. POS: C
[2017-03-04] MEDS ORDERED: Hydrocortisone Sod Succ/PF 100 mg/2 ml Vial ONE (17:15)
[2017-03-04] MEDS ORDERED: Piperacillin/Tazobactam 4.5 GM in Sodium Chloride 0.9% 100 ML IVPB ONE (17:30)
[2017-03-04] MEDS ORDERED: Hydrocortisone Sod Succ/PF 100 mg/2 ml Vial IVP SCH (17:30)
[2017-03-04] MEDS ORDERED: Fleet Enema 133 ML BOT PR PRN (17:47)
[2017-03-04] MEDS ORDERED: Milk Of Magnesia 30 ML UDCUP PO PRN (17:47)
[2017-03-04] MEDS ORDERED: Bisacodyl 10 MG SUPP PR PRN (17:47)
[2017-03-04 18:12] LABS: PTT 29.3 SEC (22.9-36.1); Prothrombin Time 13.7 SEC (12.0-14.7)
--- NOTE | 2017-03-04 18:18 | CON ---
DATE OF CONSULTATION: 03/04/2017 HISTORY OF PRESENT ILLNESS: Mr. Cao is a pleasant 81-year-old gentleman who presents today wit h a 5-day history of increasing soreness in his right hip and jony pain beginning this morning. He is status post right femoral neck fracture on 01/16/2017, and on 01/17/2017 underwent a right hip hem iarthroplasty with Dr. Villa Bah. The patient had a somewhat difficult hospital course secondary to chronic lung and cardiac disease, but was eventually discharged from the hospital and has been doi ng relatively well at home with no significant problems related to this right hip and so this recent history. Upon presentation at [facility] today, he was found to have a temperature of 101.2 degrees rectally with initial blood pressure of 89/47, although he was not tachycardic. Further wor kup included x-rays of the hip that shows a hemiarthroplasty and good alignment and position and a la b that showed a white blood cell count of 24.6. He was given 2 liters of normal saline; however, con tinues to have diastolic pressures in the 40 mmHg range. The patient is also found to have some swel ling and redness around the lateral hip skin incision. There is also some seropurulent drainage comi ng from a small opening at the superior portion of the incision site. This was swabbed by the emerge ncy room nurse and then I also sent off a second swab from deeper for Gram stain culture and sensitiv ity. The patient is now being admitted to the Hospitalist service secondary to his significant histo ry of respiratory and cardiac disease. PAST MEDICAL HISTORY: Remarkable for peripheral neuropathy, coronary artery disease with myocardial infarction in 2000, benign prostatic hypertrophy, hypertension, COPD, and recurrent pleural effusions . PAST SURGICAL HISTORY: Includes carotid endarterectomy, appendectomy, aspiration of pleural effusion on multiple occasions. MEDICATIONS: Per the emergency room record include aspirin, gabapentin, tamsulosin, prednisone, albu terol, temazepam, vitamin D3, tramadol, folic acid, Colace, digoxin, and carvedilol. ALLERGIES: None known. FAMILY HISTORY: Noncontributory. SOCIAL HISTORY: Does have a history of chewing tobacco as well as an extensive history of cigarette smoking in the past with over a [id number] history. He denies history of alcohol or IV drug use. REVIEW OF SYSTEMS: The patient has had some recent low grade fevers over the last 24 hours and chill s. He does report some chronic shortness of breath, but does not report any new chest pain. He lito es any new numbness or tingling radiating down the leg other than his baseline neuropathy. PHYSICAL EXAMINATION: VITAL SIGNS: On admission, he was found to have a blood pressure of 89/47, pulse 75, respiratory rat e 16, and O2 saturation 99% on 2 liters oxygen and a temperature of 101.2 degrees Fahrenheit rectally . HEENT: Atraumatic, normocephalic. HEART: Remarkable for irregularly irregular rhythm with somewhat faint heart sounds. I do not appre ciate any obvious murmur. LUNGS: Remarkable for distant breath sounds with somewhat prolonged expiratory phase. He does have reasonable air movement bilaterally with no crackles or rhonchi. Chest wall is nontender. ABDOMEN: Soft, flat, nontender. EXTREMITIES: Remarkable for this right lower extremity with a healed lateral incision from hip arthr oplasty except for a small 1 cm long area of drainage at the superior portion of the wound. In addit ion to this seropurulent drainage, there is erythema, swelling, and tenderness to palpation directly along this lateral thigh. With log rolling of the thigh and flexion of the hip, he does complain of groin pain. The knee, ankle and foot appear atraumatic. LABORATORY DATA: The patient was found to have a white blood cell count of 24.6, hematocrit of 35.7 , platelet count of 352,000. His chemistry panel is remarkable for glucose of 81 and lactic acid lev el of 2.4. X-rays are remarkable for a 2-view right hip that shows a hip hemiarthroplasty in excelle nt alignment which is some overlying soft tissue swelling. Chest x-ray by report is remarkable for a stable-appearing pleural and parenchymal opacity at right base with some volume loss. ASSESSMENT: An 81-year-old gentleman now 6 weeks status post right hip hemiarthroplasty for femoral neck fracture with symptoms and workup consistent with infection. PLAN: At this time, the patient will be admitted to the Hospitalist Service due to concerns regardin g sepsis, his chronic lung disease and underlying cardiac history. The patient will require further resuscitation and if stable, we will proceed to the operating room tomorrow for irrigation and debrid ement with probable removal of hip hemiarthroplasty and possible insertion of spacer device. This ev ening, I have had a discussion with family regarding the serious nature of this problem, especially i n light of patient's underlying poor health. We will start vancomycin and Rocephin, now that swabs h ave been obtained from the wound. The patient will be n.p.o. after midnight. I have also had the pl easure discussing the case with Dr. Villa Bah this evening and he will be seeing the patient in morning to take over care.
[2017-03-04 18:30] LABS: Lactic Acid 1.3 mmol/L (0.5-2.2)
[2017-03-04 18:37] LABS: Hemoglobin 9.3 g/dL (14.0-18.0); Mean Corpuscular HGB CONC 30.2 g/dL (32.0-36.0); Mean Platelet Volume 7.1 fL (7.4-10.4); Platelet Count 302 thou/uL (130-400); RBC Distribution Width 17.3 % (11.5-14.5); Red Blood Cell (RBC) Count 2.99 mill/uL (4.70-6.10); White Blood Cell (WBC) Count 30.9 thou/uL (4.8-10.8)
[2017-03-04 18:38] LABS: ALT (SGPT) Less than 7 U/L (8-55); AST (SGOT) 9 U/L (5-34); Albumin 2.9 g/dL (3.4-4.8); Alkaline Phosphatase 65 U/L (40-150); Anion Gap 10 mmol/L (10-20); BUN (Urea Nitrogen) 19 mg/dL (8.4-25.7); Bilirubin, Total 0.5 mg/dL (0.2-1.2); Calc. Creatinine Clearance 0 mL/min (70-130); Calcium 7.8 mg/dL (7.8-10.44); Carbon Dioxide 25 mmol/L (23-31); Chloride 109 mmol/L (98-107); Estimated GFR-MDRD 53; Globulin 2.3 g/dL (2.4-3.5); Glucose 80 mg/dL (83-110); Protein, Total 5.2 g/dL (5.8-8.1); Sodium 140 mmol/L (136-145)
[2017-03-04 18:53] LABS: Anisocytosis SLIGHT = 6-15 cells (100X) (0-5/hpf); Band 20 % (5-11); Lymphocytes 2 % (21-51); MDiff Complete? YES; Macrocytosis SLIGHT = 6-15 cells (100X) (0-5/hpf); Monocytes 7 % (0-10); Neutrophil 68 % (42-75); Ovalocytes SLIGHT = 2-5 cells (100X) (0-1/hpf); PLT Morphology Comment Appears Adequate; Polychromasia SLIGHT = 2-3 cells (100X) (0-2/hpf); Reactive Lymphocytes 2 % (0-10); Schistocytes SLIGHT = 2-5 cells (100X) (0-1/hpf); Spherocytes SLIGHT = 1-5 cells (100X) (None Seen)
[2017-03-04] MEDS ORDERED: Acetaminophen 325 MG TAB PO PRN (19:41)
[2017-03-04] MEDS ORDERED: Melatonin 3 MG TAB PO PRN (19:41)
[2017-03-04] MEDS ORDERED: Sodium Chloride 0.9% 1,000 ML IV SCH (20:00)
[2017-03-04] MEDS: Sodium Chloride 0.9% 1,000 ML IV SCH (20:22)
[2017-03-04 20:29] LABS: Digoxin Less than 0.15 ng/mL (0.8-2.0)
--- NOTE | 2017-03-04 20:46 | RAD ---
AP VIEW OF THE CHEST 03/04/17 INDICATION: History of sepsis. IMPRESSION: No change from the comparison dated 03/04/17 at 2:41 p.m. COMMENTS: Right pleural parenchymal opacity persists. Loop recorder overlying the left chest wall is stable. No pneumothorax is evident. Chronic lung changes are stable. Chronic right clavicle fracture is stable. POS: [facility]
[2017-03-04] MEDS: Morphine 4 MG/ML VIAL SLOW IVP PRN (20:51)
[2017-03-04 20:53] VITALS: BMI 19.5
--- NOTE | 2017-03-04 20:54 | HP-2 ---
TIME AND DATE OF SERVICE: 17:40 on 03/04/2017 CODE STATUS: DNR/DNI. PRIMARY CARE PHYSICIAN: Blank sandy. ATTENDING: Tung Ojeda M.D. RESIDENT: Horacio Aguirre MD HISTORIAN: The patient and family. CHIEF COMPLAINT: Hip pain. HISTORY OF PRESENT ILLNESS: Asael Cao is an 81-year-old male with past medical history of [place] PD, coronary artery disease status post [place], paroxysmal atrial fibrillation and neuropathy from [facility], who is status post right hip replacement on 01/17. Patient was in the hospital 5 days after his hip replacement and then went to a rehab facility for 21 days. He has since been home and has been a mbulatory and continuing home PT. Last night he started having increased hip pain and he had fevers and chills this morning. He has also had recent drainage of purulent fluid out of the hip wound, tod naida as well. Family brought him to the ER. His fever was up to 103 in the ER and surgical site was d raining pus. He denies any headache, chest pain, shortness of breath, palpitations, nausea, vomiting , diarrhea, abdominal pain. Daughter says that patient is at his normal baseline mental status. In the ED, he received vancomycin 1 gram, hydrocortisone 100 mg, normal saline at 30 mL per kg plus anot her 1 liter bolus. He also received Toradol 30 mg and Rocephin 2 grams as well as DuoNebs. PAST MEDICAL HISTORY: 1. COPD. 2. History of myocardial infarction. 3. Coronary artery disease. 4. Paroxysmal atrial fibrillation. 5. Emphysema. 6. Neuropathy. PAST SURGICAL HISTORY: 1. Left endarterectomy. 2. Right hip surgery on 01/17/2017. 3. Right lung surgery. ALLERGIES: No known drug allergies. MEDICATIONS: 1. Aspirin 81 mg p.o. daily. 2. Gabapentin 600 mg p.o. t.i.d. 3. Tamsulosin 0.4 mg p.o. daily. 4. Prednisone 10 mg p.o. daily. 5. Ipratropium-albuterol 0.5 mg-3 mg INH t.i.d. 6. Albuterol sulfate 90 mcg inhaler as needed. 7. Temazepam 50 mg p.o. daily at bedtime. 8. Vitamin D3 of 5000 units p.o. daily. 9. Tramadol 50 mg p.o. b.i.d. 10. Atorvastatin 40 mg p.o. daily. 11. Folic acid 1 mg 2 tabs p.o. daily. 12. Colace 100 mg p.o. daily. 13. Digoxin 125 mcg p.o. daily. 14. Budesonide 0.25 mg INH b.i.d. 15. Carvedilol 3.125 mg p.o. daily. FAMILY HISTORY: Unremarkable. SOCIAL HISTORY: The patient quit smoking 15 years ago. He denies any alcohol or drug use. He is re tired and and lives at home with his . REVIEW OF SYSTEMS: A 12-point review of systems including general, eyes, ENT, respiratory, CV, GI, G U, skin, musculoskeletal, neuro and psych were all reviewed and were negative, unless otherwise state d in the HPI. PHYSICAL EXAMINATION: VITAL SIGNS: Blood pressure 103/53, pulse is 79, respiratory rate 16, temperature 101.2, pulse ox 10 0% on 2 liters. Current weight is 65 kilograms. Patient is normally on 2 liters at home. GENERAL: The patient is alert and oriented x3, no acute distress, well-developed, well-nourished, an d appropriately interactive. The patient is ill-appearing. HEENT: Eyes, pupils equal, round, reactive to light and accommodation. Extraocular muscles intact. Conjunctivae within normal limits. ENT: Tympanic membranes pearly badillo without bulging or erythema. Nasal mucosa and oropharynx within normal limits. NECK: Supple, without lymphadenopathy or thyromegaly. CARDIOVASCULAR: Regular rate and rhythm. No murmurs or gallops. Radial and pedal pulses equal bila terally. RESPIRATORY: Normal effort, no retractions. There are scattered wheezes heard bilaterally. SKIN: Warm and dry without cyanosis or lesions. Right hip surgical site has erythema and an open in cision. ABDOMEN: Soft, nontender, bowel sounds x4. No mass or distention. EXTREMITIES: No cyanosis, edema or clubbing. MUSCULOSKELETAL: Structure and tone within normal limits. Range of motion decreased in the right lo wer extremity secondary to pain. Full range of motion in all other extremities. NEUROLOGIC: No focal deficits. Sensation within normal limits. PSYCHIATRIC: Appropriate. LABORATORY DATA: White blood cell count 30.9 with 68% neutrophils and 20% bands, hemoglobin 9.3, hem atocrit 30.7, MCV of 103, platelets 302. Sodium 140, potassium 4.0, chloride 109, carbon dioxide 25, BUN 19, creatinine 1.29, glucose 80, calcium 7.8, total protein 5.2, albumin 2.9, total bilirubin 0. 5, AST 9, ALT less than 7, alkaline phosphatase 65. PT 13.7, INR 1.0, PTT 29.3. UA was unremarkable . Chest x-ray showed stable appearing pleural and parenchymal opacity changes in the right base with some volume loss and biapical pleural thickening, worse on the right side with some associated right -sided volume loss. Old distal right clavicular fracture and no evidence for new confluent process o r overt edema. Right hip x-ray showed an interval increase in soft tissue fullness over the right th igh from the comparison examination. ASSESSMENT AND PLAN: An 81-year-old man status post right hip replacement on 01/17/2017 with increas ed pain, fevers, chills. 1. Septic shock secondary to septic arthritis versus wound infection. Admit to ICU. Pulmonology an d Orthopedics has been consulted. We will consult Infectious Disease in the morning. Dr. Helga Higgins has seen the patient in the ED and has scheduled surgery for tomorrow morning. Patient is n.p.o. at midnight. We will continue intravenous vancomycin, Rocephin and intravenous fluids normal saline at 105 mL an hour and no pressors needed at this time. We will continue to monitor vital sign s closely. 2. Acute kidney injury on chronic kidney disease stage II. We will trend GFR. IV fluids at 105 mL an hour. The patient is status post fluid bolus in the ER. 3. Macrocytic anemia. Check red blood cell, folate and B12. The patient is currently on folate sup plementation. 4. Coronary artery disease. Hold beta shankar and statin at this time until patient is stable and a fter surgery. 5. Chronic obstructive pulmonary disease, Pulmicort and DuoNebs. 6. Neuropathy, gabapentin. 7. Paroxysmal atrial fibrillation. We will check a digoxin level and consider restarting at that ti me. 8. Diet: Regular diet with n.p.o. at midnight. 9. Activity: Bed rest. 10. Fall precautions. 11. Code status: DNR/DNI. DISPOSITION AND LENGTH OF HOSPITAL STAY: 2-3 days. Symptomatic medications will be provided. History, physical exam as well as management discussed trish Ojeda.
--- NOTE | 2017-03-04 21:05 | RAD ---
AP VIEW OF THE PELVIS: 03/04/17 INDICATION: Preoperative examination for hip fracture. COMPARISON: Two views of the right hip dated 03/04/17 and 01/17/17. Right hemiarthroplasty does not appear appreciably changed from the comparison. Soft tissue fullness surrounding the right hip is similar. Scattered vascular calcification is similar. No acute fracture or subluxation is grossly evident. IMPRESSION: Stable exam. POS: LISA
[2017-03-04 22:46] LABS: Clarity Cloudy (Clear); Specific Gravity, Urine 1.014 (1.002-1.036); pH, Urine 5.5 (5.0-9.0)
[2017-03-04 22:47] LABS: Bilirubin Negative (Negative); Blood, Urine Moderate (Negative); Glucose, Urine (Dipstick) Negative (Negative); Leukocyte Trace (Negative); Nitrite Negative (Negative); Protein, Urine (Dipstick) Trace mg/dL (Neg-Trace); Urobilinogen 0.2 mg/dL (0.2-1.0)
[2017-03-04 22:57] LABS: Bacteria/HPF None Seen HPF (None Seen); Hyaline Casts/LPF 0-3 HYALINE CAST LPF (0-3 Hyaline); Squamous Epithelial None Seen HPF (0-3)
[2017-03-05] MEDS ORDERED: Melatonin 3 MG TAB PO SCH (00:15)
[2017-03-05 04:32] LABS: ALT (SGPT) Less than 7 U/L (8-55); AST (SGOT) 8 U/L (5-34); Albumin 2.6 g/dL (3.4-4.8); Alkaline Phosphatase 55 U/L (40-150); Anion Gap 10 mmol/L (10-20); BUN (Urea Nitrogen) 20 mg/dL (8.4-25.7); Bilirubin, Total 0.3 mg/dL (0.2-1.2); Calc. Creatinine Clearance 51 mL/min (70-130); Calcium 8.1 mg/dL (7.8-10.44); Carbon Dioxide 26 mmol/L (23-31); Chloride 110 mmol/L (98-107); Estimated GFR-MDRD 64; Globulin 2.3 g/dL (2.4-3.5); Glucose 165 mg/dL (83-110); Potassium 4.2 mmol/L (3.5-5.1); Protein, Total 4.9 g/dL (5.8-8.1); Sodium 142 mmol/L (136-145)
[2017-03-05 04:42] LABS: Anisocytosis SLIGHT = 6-15 cells (100X) (0-5/hpf); Band 13 % (5-11); Bite Cells SLIGHT = 2-5 cells (100X) (0-1/hpf); Hemoglobin 9.1 g/dL (14.0-18.0); Hypochromia SLIGHT = 6-15 cells (100X) (0-5/hpf); Lymphocytes 4 % (21-51); MDiff Complete? YES; Mean Corpuscular HGB CONC 29.9 g/dL (32.0-36.0); Mean Corpuscular Hemoglobin 30.9 pg (27.0-31.0); Mean Platelet Volume 7.2 fL (7.4-10.4); Monocytes 3 % (0-10); Neutrophil 80 % (42-75); PLT Morphology Comment Appears Adequate; Platelet Count 281 thou/uL (130-400); RBC Distribution Width 17.2 % (11.5-14.5); Red Blood Cell (RBC) Count 2.93 mill/uL (4.70-6.10); Schistocytes SLIGHT = 2-5 cells (100X) (0-1/hpf); White Blood Cell (WBC) Count 29.6 thou/uL (4.8-10.8)
[2017-03-05] MEDS: Sodium Chloride 0.9% 1,000 ML IV SCH ×2 (05:31→15:02)
[2017-03-05] MEDS: Vancomycin HCl 1 GM in Premix Bag 1 BAG IVPB SCH ×2 (05:31→17:06)
[2017-03-05] MEDS ORDERED: Ondansetron HCl/PF 4 MG/2 ML Vial IVP PRN ×3 (05:41→14:00)
[2017-03-05] MEDS ORDERED: Vancomycin HCl 1 GM in Sodium Chloride 0.9% 250 ML 250 ML IVPB SCH (06:00)
--- NOTE | 2017-03-05 06:10 | PDOC.FM ---
- Subjective Subjective: Pt seen at bedside in NADJairon ROSEN overnight. Notes his pain is controlled. No complaints at this time. - Objective MAR Reviewed: Yes Vital Signs & Weight: Vital Signs (12 hours) Temp Pulse Resp Pulse Ox 03/05/17 04:00 98.6 F 03/05/17 03:54 60 24 H 100 03/05/17 00:00 98.6 F 03/04/17 20:00 98.7 F 74 20 100 Most Recent Monitor Data Heart Rate from ECG 81 NIBP 138/48 NIBP BP-Mean 83 Respiration from ECG 19 SpO2 100 I&O: 03/03/17 03/04/17 03/05/17 06:59 06:59 06:59 Intake Total 250 Output Total 1040 Balance -790 Result Diagrams: 03/05/17 03:46 03/05/17 03:46 <Leobardo Simon - Last Filed: 03/05/17 07:49> - Objective Vital Signs & Weight: Vital Signs (12 hours) Temp Pulse Resp Pulse Ox 03/05/17 11:00 99.1 F 03/05/17 10:15 74 03/05/17 08:00 98.5 F 74 19 03/05/17 07:34 66 19 03/05/17 04:00 98.6 F 03/05/17 03:54 60 24 H 100 Weight Admit Weight 68.9 kg Weight 68.9 kg Most Recent Monitor Data Heart Rate from ECG 76 NIBP 143/52 NIBP BP-Mean 68 Respiration from ECG 22 SpO2 93 I&O: 03/04/17 03/05/17 03/06/17 06:59 06:59 06:59 Intake Total 1506 0 Output Total 1085 200 Balance 421 -200 Result Diagrams: 03/05/17 03:46 03/05/17 03:46 <Tung Ojeda - Last Filed: 03/05/17 13:22> Phys Exam - Physical Examination Constitutional: NAD HEENT: PERRLA Respiratory: no rales, no rhonchi, wheezing present scattered wheezing bilaterally Cardiovascular: RRR Gastrointestinal: soft, non-tender Musculoskeletal: pulses present Neurological: moves all 4 limbs Psychiatric: normal affect, A&O x 3 Deviation from normal: right hip incision surrounding erythema <Leobardo Simon - Last Filed: 03/05/17 07:49> Dx/Plan (1) Septic joint Status: Acute QualifierTitle: Septic arthritis location: hip Septic arthritis organism : due to unspecified organism Laterality: right Qualified Code(s): M00.9 - Pyogenic arthritis, unspecified Plan: -pt presented for worsening hip pain, swelling, and redness at incision site s/ p right hip hemiarthroplasty on 01/16/17 -XR reveals areas of inflammation surrounding hip replacement -pt also presented with fever, leukocytosis, and hypotension initially meeting diagnostic criteria for septic shock -pt was admitted to CCU -orthopedic surgery consulted -after aggressive IVF and addition of hydrocortisone, pt's BP stabilized and pt did not require pressor support -MAP consistently above 80, continue to monitor closely -blood and wound cultures have been drawn -pt started on rocephin and vancomycin per surgical team. vanc trough scheduled 1231 AM -per surgery, plans for OR today for I&D and probable removal of hemiarthroplasty with possibility of spacer insertion -continue to monitor, plan per surgery team (2) ERIKA (acute kidney injury) Code(s): N17.9 - ACUTE KIDNEY FAILURE, UNSPECIFIED Status: Acute Plan: -ERIKA on CKD2 -continue IVF and continue to monitor (3) COPD (chronic obstructive pulmonary disease) Status: Acute QualifierTitle: COPD type: emphysema Emphysema type: panlobular Qualified Code(s): J43.1 - Panlobular emphysema Plan: -continue home medications and supplemental oxygen as needed (4) Paroxysmal atrial fibrillation with RVR Code(s): I48.0 - PAROXYSMAL ATRIAL FIBRILLATION Status: Chronic Plan: -currently NSR -will continue home digoxin and continue to monitor closely (5) Peripheral neuropathy Code(s): G62.9 - POLYNEUROPATHY, UNSPECIFIED Status: Chronic QualifierTitle: Peripheral neuropathy type: polyneuropathy, unspecified Qualified Code(s): G62.9 - Polyneuropathy, unspecified Plan: -continue home gabapentin - Plan Plan: dispo: Pt stable. Pt has sepsis with possible septic joint vs wound infection. Surgery recommendations greatly appreciated. Plan for OR today. Continue to monitor closely. <Leobardo Simon - Last Filed: 03/05/17 07:49> Attending Addendum - Attending Addendum I personally evaluated the patient in ICU A6 and discussed the management with Dr. Simon. I agree with the History, Examination, Assessment and Plan documented above with any addition or exceptions noted below. He feels well and did well overnight with good BP. Lungs: CTA, Cor: RRR, I do not appreciate a murmur this morning. We anticipate he will be going to OR today for wound exploration. A: Severe sepsis with post op Right hip arthroplasty superficial wound infection versus septic artificial joint. COPD, Hx Paroxysmal a-fib currently in NSR, Peripheral neuropathy, History of multiple falls. P: Wound exploration per orthopedic surgery. Continue ceftriaxone and vancomycin IV. [facility] <Tung Ojeda - Last Filed: 03/05/17 13:22>
[2017-03-05] MEDS: Morphine 4 MG/ML VIAL SLOW IVP PRN ×2 (06:31→08:27)
[2017-03-05] MEDS: Budesonide 0.25 MG/2 ML NEB INH SCH ×2 (07:34→18:27)
[2017-03-05] MEDS ORDERED: predniSONE 20 MG TAB PO SCH (09:00)
[2017-03-05] MEDS ORDERED: traMADol HCl 50 MG TAB PO PRN ×2 (09:51→14:00)
[2017-03-05] MEDS: Gabapentin 300 MG CAP PO SCH ×5 (10:15→20:55)
[2017-03-05] MEDS: Digoxin 0.125 MG TAB PO SCH (10:15)
[2017-03-05] MEDS ORDERED: Tobramycin Sulfate 1.2 GM VIAL ONE (10:50)
--- NOTE | 2017-03-05 11:33 | CON ---
DATE OF CONSULTATION: 03/05/2017 REASON FOR CONSULTATION: Sepsis. HISTORY OF PRESENT ILLNESS: This is an 81-year-old male who came to the hospital last night with drainage coming from a right hip wound. He had his right hip replaced on 01/17/2017. He has been experiencing fever and chills and occasional chest pain when he inhales. He knows of no alleviating or aggravating factors. PAST MEDICAL HISTORY: Obtained from talking with the patient and reviewing old records in chart: 1. Chronic obstructive pulmonary disease - followed by Dr. Forrest. 2. Myocardial infarction. 3. Coronary artery disease. 4. Paroxysmal atrial fibrillation. 5. Emphysema. 6. Neuropathy. PAST SURGICAL HISTORY: 1. He has had a right lung decortication. 2. Left carotid endarterectomy. 3. Right hip replacement. ALLERGIES: None. MEDICATIONS PRIOR TO ADMISSION: Aspirin 81 mg daily, gabapentin 600 mg t.i.d., tamsulosin 0.4 mg daily, prednisone 10 mg daily, DuoNeb t.i.d., albuterol metered dose inhaler as needed, temazepam 50 mg nightly, vitamin D3 5000 units daily, tramadol 50 mg twice daily, atorvastatin 40 mg daily, folate 1 mg 2 times daily, Colace 100 mg daily, digoxin 125 mg daily, budesonide 0.25 mg inhaled b.i.d., carvedilol 3.125 mg b.i.d. FAMILY MEDICAL HISTORY: Unremarkable. SOCIAL HISTORY: Quit smoking 15 years ago. He does not consume alcohol. He does not use any illicit drugs. Lives at home with his . REVIEW OF SYSTEMS: Twelve point review of systems otherwise negative except for the hip drainage and the chest pain when he inhales. PHYSICAL EXAMINATION: VITAL SIGNS: Temperature 98.5, pulse 73, blood pressure 114/46, O2 sat 96% on 2 liters nasal cannula. GENERAL: He is awake and alert and in no acute distress. HEENT: Sclerae are anicteric. Oropharynx clear. NECK: Without adenopathy or JVD. LUNGS: Clear to auscultation anteriorly. CARDIOVASCULAR: S1, S2 regular without murmur. ABDOMEN: Soft, nontender, nondistended. EXTREMITIES: No clubbing, cyanosis, or edema. No rashes. He does have some drainage from his right buttock area where he had the hip surgery. NEUROLOGIC: He is alert and oriented x3. LABORATORY DATA: Sodium 142, potassium 4.2, chloride 110, CO2 26, BUN 20, creatinine 1.1, glucose 165. White blood cell count 29.6, hemoglobin 9.1, hematocrit 30.3, platelet count 281. I reviewed his chest x-ray personally and it demonstrates blunting of the right costophrenic angle which is consistent with previous decortication. ASSESSMENT: 1. Sepsis syndrome - he has Staphylococcal infection of his hip. 2. Underlying chronic obstructive pulmonary disease which is clinically stable. 3. Multiple other medical problems as listed above. PLAN: The patient is scheduled to have his hip prosthesis removed today. He will need to be on stress dose steroids perioperatively given his chronic use of prednisone. Continue with nebulization treatments, add Brovana and Pulmicort. 70 minutes are spent at bedside and [facility] the [facility]
[2017-03-05] MEDS ORDERED: Fentanyl 100 MCG/2 ML VIAL ONE ×3 (11:35→13:51)
[2017-03-05] MEDS ORDERED: Succinylcholine Chloride 20 MG/ML 10 ml SYRINGE FS ONE (12:17)
[2017-03-05] MEDS ORDERED: PHENYLEPHRINE-NS 100 MCG/ML 10 ML SYRINGE ONE (12:17)
[2017-03-05] MEDS ORDERED: Glycopyrrolate 0.2 MG/ML 5 ML SYRINGE ONE (12:17)
[2017-03-05] MEDS ORDERED: PROPOFOL 200 MG/20 ML VIAL ONE (12:17)
[2017-03-05] MEDS ORDERED: Ondansetron HCl/PF 4 MG/2 ML Vial ONE (12:17)
[2017-03-05] MEDS ORDERED: ePHEDrine/0.9% NaCl/PF SYRINGE 50 mg/10 ml ONE (12:17)
[2017-03-05] MEDS ORDERED: Lidocaine 1% PF 5 ML VIAL ONE (12:17)
[2017-03-05] MEDS ORDERED: Dexamethasone 20 MG/5 ML VIAL ONE (12:17)
[2017-03-05] MEDS ORDERED: cefTRIAXone\\ROCEPHIN 1 GM VIAL ONE (12:30)
[2017-03-05] MEDS ORDERED: Promethazine HCl 25 MG/ML VIAL SLOW IVP PRN (13:46)
[2017-03-05] MEDS ORDERED: Promethazine HCl 25 MG/ML VIAL IM PRN ×2 (13:46→14:00)
[2017-03-05] MEDS: Hydrocortisone Sod Succ/PF 100 mg/2 ml Vial IVP SCH ×2 (13:53→17:06)
[2017-03-05] MEDS ORDERED: Zolpidem Tartrate 5 MG TAB PO PRN (14:00)
[2017-03-05] MEDS ORDERED: Tranexamic Acid 1,000 MG in Sodium Chloride 0.9% 100 ML IVPB SCH (14:00)
[2017-03-05] MEDS ORDERED: Acetaminophen 325 MG TAB PO PRN (14:00)
[2017-03-05] MEDS ORDERED: Fentanyl 100 MCG/2 ML VIAL SLOW IVP PRN (14:00)
[2017-03-05] MEDS ORDERED: diphenhydrAMINE 25 MG CAP PO PRN (14:00)
[2017-03-05] MEDS ORDERED: cefTRIAXone\\ROCEPHIN 2 GM in Sodium Chloride 0.9% 100 ML IVPB SCH (14:15)
--- NOTE | 2017-03-05 14:23 | OP ---
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 TITLE OF PROCEDURE: Removal of hardware and conversion of previous hip surgery to total hip arthropl asty using high dose antibiotic impregnated cement. SURGEON: Villa Bah M.D. SAMPLE PASTER: Charlie Francois PA-C. BLOOD LOSS: 300. SPECIMEN: None. DRAINS: None. COMPLICATIONS: None. CULTURES: Were already obtained, which showed Staphylococcus aureus. DESCRIPTION OF PROCEDURE: The patient was taken to the operating where general anesthesia was induce d. He was already on vancomycin scheduled and Rocephin scheduled. He was given another dose of Roce phin 2 grams prior to begin the surgical procedure. He was placed in left lateral decubitus position , right leg was prepped and draped in the usual fashion. I opened up the old incision, dissected cuate n to the IT band, several 100 mL of watery purulent material was identified. The abductor mechanism had partially healed, this was taken down. The hip capsule was entered and there was purulent materi al within this area as well. Hip was dislocated and with some difficulty, the femoral implant was ex tracted. I then cleaned the inside of the femoral canal with curettes. I used flexible reamers to r eam up to size 13 mm removing all the endosteal surface of the bone, which was previously contaminate d. Then used endosteal brush with pulsatile lavage tail board man to further clean the intramedullary can al, I used a size 5 [place] cemented femoral implant. This was trialled and appeared to be appropria te size. Attention was turned to the acetabulum. Complete synovectomy was performed. Complete caps ulectomy was performed. The acetabulum was exposed and I reamed up to size 55 mm in the acetabulum a ll the way down to the true medial wall. I then prepared antibiotic cement using a total of 3.4 gram s of tobramycin, 3 grams of vancomycin. I mixed the cement until it was a doughy consistency and I c emented the acetabulum into place. This was an F type liner, 40 mm with X3 polyethylene. I cemented the #5 [place] cemented total hip stem into place using the same high dose antibiotic. I then trial ed and found a size +5, which gave the best fit, and stability. Trials were removed, +5 femoral head x [address]. Hip was reduced, checked for range motion and appeared to be stable. Irrigation performed again. The abductors repaired with #1 Vicryl. The IT band was repaired with #1 Vicryl and #2 Quill, subcutaneous closed with 2-0 Quill, skin was closed with 2-0 Prolene. Sterile dressings applied. There were no complications.
--- NOTE | 2017-03-05 15:39 | RAD ---
RIGHT HIP TWO VIEWS: HISTORY: Total hip arthroplasty. FINDINGS/IMPRESSION: There are post-op changes of right hip hemiarthroplasty in good position and alignment. A femoral he ad prosthesis is present. POS: EMILY
[2017-03-05] MEDS ORDERED: Temazepam 15 MG CAP PO PRN (16:18)
[2017-03-05] MEDS ORDERED: Albuterol Sulfate 2.5 mg/3 ml Neb NEB PRN (16:18)
[2017-03-05] MEDS: HYDROcodone/Acetaminophen 10/325 mg Tablet PO PRN ×2 (17:16→22:10)
--- NOTE | 2017-03-05 18:20 | CON ---
DATE OF CONSULTATION: 03/05/2017 REASON FOR CONSULTATION: Right hip pain. HISTORY OF PRESENT ILLNESS: Ms. Cao well known to me, 81-year-old gentleman who has a chronic lung disease, steroid dependent. I did hemiarthroplasty on his hip about 6-7 weeks ago. For the las t 4-5 days, he has had increasing pain, presented with drainage to the ER yesterday. Cultures were o btained last night which showed staph species. He has remained with a high white count of 30,000 huber n on IV antibiotics, shaking chills and high fevers. Does not appear to be improving with medical tr eatment. His lab shows hip surprisingly not very much erythema, but a small opening proximally with some drain age, pain with manipulation of the hip. Radiographs show well well fix in the arthroplasty. Plan at this time is for complete resection. Th e implants are clean. The intramedullary canal does cemented. Total hip replacement with antibiotic loaded cement to act as a spacer. probably as a permanent hip implant and way to deliver high dose antibiotics. Family understands the risk of infection, stiffness, dislocation, blood clots, tr ansfusion, and . They understand he is at very high risk for surgery. He is a DNR at this time and they would like to proceed with surgery.
[2017-03-05] MEDS: Arformoterol 15 MCG/2 ML NEB NEB SCH (18:27)
[2017-03-05] MEDS: Amiodarone 200 MG TAB PO SCH (20:45)
[2017-03-05] MEDS: Atorvastatin Calcium 40 MG TAB PO SCH (20:45)
[2017-03-05] MEDS: Carvedilol 3.125 MG TAB PO SCH (20:45)
[2017-03-05] MEDS: Tamsulosin HCl 0.4 MG CAP PO SCH (20:45)
[2017-03-05] MEDS: Aspirin 325 MG TAB PO SCH (20:45)
[2017-03-05] MEDS: Fentanyl 100 MCG/2 ML VIAL SLOW IVP PRN (20:59)
[2017-03-05] MEDS ORDERED: Vancomycin HCl 1 GM in Premix Bag 1 BAG IVPB SCH (21:00)
[2017-03-06] MEDS: Sodium Chloride 0.9% 1,000 ML IV SCH ×2 (00:25→10:00)
[2017-03-06] MEDS: Hydrocortisone Sod Succ/PF 100 mg/2 ml Vial IVP SCH ×2 (00:25→06:28)
[2017-03-06 06:10] LABS: Mean Corpuscular HGB CONC 30.2 g/dL (32.0-36.0); Mean Corpuscular Hemoglobin 31.3 pg (27.0-31.0); Mean Platelet Volume 7.6 fL (7.4-10.4); Platelet Count 224 thou/uL (130-400); RBC Distribution Width 16.9 % (11.5-14.5); Red Blood Cell (RBC) Count 2.25 mill/uL (4.70-6.10); White Blood Cell (WBC) Count 21.2 thou/uL (4.8-10.8)
[2017-03-06 06:23] LABS: Vancomycin, Trough 17.5 ug/mL
[2017-03-06 06:27] LABS: Anion Gap 8 mmol/L (10-20); BUN (Urea Nitrogen) 21 mg/dL (8.4-25.7); Calc. Creatinine Clearance 64 mL/min (70-130); Calcium 7.8 mg/dL (7.8-10.44); Carbon Dioxide 26 mmol/L (23-31); Chloride 110 mmol/L (98-107); Estimated GFR-MDRD 83; Glucose 126 mg/dL (83-110); Potassium 4.3 mmol/L (3.5-5.1); Sodium 140 mmol/L (136-145)
[2017-03-06] MEDS: Vancomycin HCl 1 GM in Premix Bag 1 BAG IVPB SCH (06:28)
[2017-03-06] MEDS: Arformoterol 15 MCG/2 ML NEB NEB SCH ×2 (06:42→19:10)
[2017-03-06] MEDS: Budesonide 0.25 MG/2 ML NEB INH SCH ×2 (06:42→19:10)
--- NOTE | 2017-03-06 07:44 | PDOC.FM ---
- Subjective Subjective: Pt seen at bedside in NAD. SILAS overnight, tolerated OR well yesterday and notes pain controlled. No complaints at this time. - Objective MAR Reviewed: Yes Vital Signs & Weight: Vital Signs (12 hours) Temp Pulse Resp Pulse Ox 03/06/17 06:42 62 18 03/06/17 03:00 98 F 03/05/17 23:00 98.2 F 03/05/17 19:58 97.6 F 70 15 96 Weight Admit Weight 68.9 kg Weight 68.9 kg Most Recent Monitor Data Heart Rate from ECG 55 NIBP 116/39 NIBP BP-Mean 68 Respiration from ECG 13 SpO2 100 I&O: 03/05/17 03/06/17 03/07/17 06:59 06:59 06:59 Intake Total 1506 1309 Output Total 1085 835 10 Balance 421 474 -10 Result Diagrams: 03/06/17 05:25 03/06/17 05:25 <Leobardo Simon - Last Filed: 03/06/17 07:49> - Objective Vital Signs & Weight: Vital Signs (12 hours) Temp Pulse Pulse Pulse Resp BP BP 03/06/17 12:00 97.7 F 03/06/17 09:51 105 H 03/06/17 08:33 93 108 H 108/58 L 103/64 03/06/17 08:00 97.8 F 105 H 22 H 03/06/17 06:42 62 18 03/06/17 03:00 98 F Pulse Ox Pulse Ox Pulse Ox 03/06/17 12:00 03/06/17 09:51 03/06/17 08:33 91 L 98 03/06/17 08:00 95 03/06/17 06:42 03/06/17 03:00 Weight Admit Weight 68.9 kg Weight 68.9 kg Most Recent Monitor Data Heart Rate from ECG 67 NIBP 124/59 NIBP BP-Mean 81 Respiration from ECG 15 SpO2 100 I&O: 03/05/17 03/06/17 03/07/17 06:59 06:59 06:59 Intake Total 1506 1309 Output Total 1085 835 215 Balance 421 474 -215 Result Diagrams: 03/06/17 05:25 03/06/17 05:25 <Tung Ojeda - Last Filed: 03/06/17 14:04> Phys Exam - Physical Examination Constitutional: NAD HEENT: PERRLA Respiratory: no rales, no rhonchi scant bibasilar wheezes Cardiovascular: RRR Gastrointestinal: soft, non-tender Musculoskeletal: pulses present Neurological: moves all 4 limbs bandage site c/d/i Psychiatric: normal affect, A&O x 3 <Leobardo Simon - Last Filed: 03/06/17 07:49> Dx/Plan (1) Septic joint Status: Acute QualifierTitle: Septic arthritis location: hip Septic arthritis organism : due to unspecified organism Laterality: right Qualified Code(s): M00.9 - Pyogenic arthritis, unspecified Plan: -pt presented for worsening hip pain, swelling, and redness at incision site s/ p right hip hemiarthroplasty on 01/16/17 -XR reveals areas of inflammation surrounding hip replacement -pt also presented with fever, leukocytosis, and hypotension initially meeting diagnostic criteria for septic shock -pt was admitted to CCU -orthopedic surgery consulted -after aggressive IVF and addition of hydrocortisone, pt's BP stabilized and pt did not require pressor support -MAP consistently above 80, continue to monitor closely -blood and wound cultures have been drawn and show MSSA bacteremia -pt started on rocephin and vancomycin per surgical team. vanc trough therapeutic at 17.5 -on 03/05 pt had removal of previous hardware and replacement with antibiotic spacer -continue to monitor, plan per surgery team (2) MSSA (methicillin susceptible Staphylococcus aureus) septicemia Code(s): A41.01 - SEPSIS DUE TO METHICILLIN SUSCEPTIBLE STAPHYLOCOCCUS AUREUS Status: Acute Plan: -plan per above -surgery has also consulted ID, recs greatly appreciated -consider deescalating therapy (3) ERIKA (acute kidney injury) Code(s): N17.9 - ACUTE KIDNEY FAILURE, UNSPECIFIED Status: Acute Plan: -ERIKA on CKD2, improved (4) COPD (chronic obstructive pulmonary disease) Status: Acute QualifierTitle: COPD type: emphysema Emphysema type: panlobular Qualified Code(s): J43.1 - Panlobular emphysema Plan: -continue home medications and supplemental oxygen as needed (5) Paroxysmal atrial fibrillation with RVR Code(s): I48.0 - PAROXYSMAL ATRIAL FIBRILLATION Status: Chronic Plan: -currently NSR -will continue home digoxin and continue to monitor closely (6) Peripheral neuropathy Code(s): G62.9 - POLYNEUROPATHY, UNSPECIFIED Status: Chronic QualifierTitle: Peripheral neuropathy type: polyneuropathy, unspecified Qualified Code(s): G62.9 - Polyneuropathy, unspecified Plan: -continue home gabapentin - Plan Plan: dispo: Pt stable and tolerated OR well. MSSA bacteremia, likely deescalate therapy. Surgery and ID recs greatly appreciated. Pt stable for transfer out of CCU. Continue to monitor. <Leobardo Simon - Last Filed: 03/06/17 07:49> Attending Addendum - Attending Addendum I personally evaluated the patient in ICU and discussed the management with Dr. Simon. I agree with the History, Examination, Assessment and Plan documented above with any addition or exceptions noted below. He feels well, pain is controlled and he was sitting up eating breakfast in chair. Afebrile. Lungs: CTA, Cor: irreg irreg with rate 80s-90s. Has gone in to A-fib with normal ventricular response. Ortho surgery has cleared him to go to surgical floor and that seems appropriate. Will continue to follow medically . [facility] <Tung Ojeda - Last Filed: 03/06/17 14:04>
[2017-03-06] MEDS: Fentanyl 100 MCG/2 ML VIAL SLOW IVP PRN (08:45)
[2017-03-06] MEDS ORDERED: predniSONE 5 MG TAB PO SCH (09:00)
[2017-03-06] MEDS: Gabapentin 300 MG CAP PO SCH ×3 (09:50→21:27)
[2017-03-06] MEDS: Senokot S 8.6-50 MG TAB PO SCH ×2 (09:50→21:27)
[2017-03-06] MEDS: Digoxin 0.125 MG TAB PO SCH (09:51)
[2017-03-06] MEDS: Aspirin 325 MG TAB PO SCH ×2 (09:51→21:27)
[2017-03-06] MEDS: Ferrous Gluconate 324 MG TAB PO SCH ×2 (09:51→17:46)
[2017-03-06] MEDS: Carvedilol 3.125 MG TAB PO SCH ×2 (09:51→21:27)
[2017-03-06] MEDS: Multivitamin W/ Minerals 1 TAB PO SCH (09:51)
[2017-03-06] MEDS: Amiodarone 200 MG TAB PO SCH ×2 (09:51→21:28)
--- NOTE | 2017-03-06 11:29 | PRG ---
DATE OF SERVICE: 03/06/2017 SUBJECTIVE: He had a surgery yesterday did extremely well, feels okay today and has no complaints. OBJECTIVE: VITAL SIGNS: Temperature is 98, pulse 55, blood pressure 116/39. He is off of vasopressors, 24-hour intake 1309, output 835. HEENT: Unremarkable. NECK: No JVD. CHEST: Clear without wheezing. CARDIAC: S1 and S2, regular. ABDOMEN: Soft. EXTREMITIES: No edema. LABORATORY DATA: White blood cell count 21.2, hematocrit 23.3, and platelet count 224. Sodium 140, potassium 4.3, chloride 110, CO2 of 26, BUN 21, creatinine 0.8, and glucose 126. ASSESSMENT: 1. Status post removal of infected hip hardware. 2. Underlying chronic obstructive pulmonary disease, requiring steroids and oxygen. 3. History of coronary artery disease. 4. History of paroxysmal atrial fibrillation. PLAN: 1. Transfer to the ortho floor. 2. Decrease IV fluids. 3. Decrease steroid down to 15 mg per day of prednisone dose. His baseline dose is 10 mg per day. 4. Follow H&H tomorrow.
[2017-03-06] MEDS ORDERED: cefTRIAXone\\ROCEPHIN 2 GM in Sodium Chloride 0.9% 100 ML IVPB SCH (13:00)
[2017-03-06] MEDS: CEFAZOLIN/Water 2 GM/20 ML SYRINGE SLOW IVP SCH ×2 (13:22→21:27)
--- NOTE | 2017-03-06 14:12 | CON ---
DATE OF CONSULTATION: 03/06/2017 REASON FOR CONSULTATION: Right hemiarthroplasty infection with bacteremia. HISTORY OF PRESENT ILLNESS: An 81-year-old who has a history of COPD, coronary artery disease with a trial fibrillation and a recent episode of entrapped lung associated with gelatinous fluid, probably residual from infection secondary to Klebsiella who fell recently and broken his right hip and underw ent hemiarthroplasty in January of this year and now has been admitted with sepsis with obvious infe ction in the right hip. The patient underwent removal of the implant and had placement of bipolar im plant in the site by Dr. Bah with antibiotic impregnated cement. Patient had thorough debridement and now is in the ICU recovering from the sepsis. He is sitting up by the bedside. He is awake, or iented, denies headaches, visual symptoms, sore throat, odynophagia, dysphagia, no dyspnea or chest p ain, no back pain, no abdominal pain. He has a Cardona catheter in place and mild pain in the right hi p site. PAST MEDICAL HISTORY: COPD, [place], coronary artery disease, AFib, emphysema, neuropathy, entrapped righ t lung with empyema/gelatinous fluid managed with decortication, had air leak developing after this p rocedure and required a Heimlich valve which was removed recently. ALLERGIES: None. CURRENT MEDICATIONS: Chamois, Ventolin, DuoNeb, Cordarone, Brovana, aspirin, Lipitor, Dulcolax, Pulmic ort, Coreg, Rocephin, Lanoxin, Benadryl, Sublimaze, Fergon, Neurontin, prednisone, Phenergan, tamsulo sin, tramadol, zolpidem. FAMILY HISTORY: Noncontributory. SOCIAL HISTORY: Former smoker, quit 15 years prior, lives, I believe in [place] with . PHYSICAL EXAMINATION: VITAL SIGNS: T-max 99.1, currently 97.8, blood pressure 103/64, pulse 70, respirations 17, O2 sat 10 0% on 2 liters. SKIN: With areas of seborrheic keratosis in the back, Cardona catheter in place and peripheral IV acce ss. No lymphadenopathy. HEENT: Ocular movements are conjugate, still quite a few teeth in place with marked decay and gum di sease. NECK: Supple, no jugular venous distention. LUNGS: With diminished breath sounds throughout the lung rocha. I feel crackles here and there. N o wheezing. HEART: S1, S2 with a soft aortic murmur. Regular rate. ABDOMEN: Soft, not distended or tender, may be mildly distended, but not tender. No ascites. No bl adder distention. GENITAL: Normal except for Cardona catheter. EXTREMITIES: No other joint inflammatory process noticeable. Pulses 1+ in dorsalis pedis. Plantar responses are flexure. Right hip without any drains at this time. He is able to move extremities wi th some limitation due to the right hip inflammatory process. NEUROLOGIC: He is awake, knows his name, knows where he is, follows commands, pleasant. LABORATORY DATA: Urinalysis was normal. White cell count 30,000 down to 21,000, hemoglobin down to 7, MCV 103, and platelets 224 with 80% neutrophils, 13% bands. Chemistry: Creatinine 0.88, glucose 126, albumin 2.6, globulin 2.3. Microbiology with Staph aureus, methicillin susceptible. ASSESSMENT: Chronic obstructive pulmonary disease, emphysema, prior history of myocardial infarction with coronary artery disease, atrial fibrillation, now with a fracture followed by hemiarthroplasty and now infection with methicillin-susceptible Staphylococcus aureus with bacteremia and status post removal hemiarthroplasty and placement of a bipolar implant. DISCUSSION: The patient will be transitioned to cefazolin 2 grams q.8 hours plus rifampin and treat for 6 weeks after that probably continue some suppression probably Keflex, PICC line placement. Prob ably he will be transitioned to rehabilitation. No other areas of dissemination noticeable at this t laura. Areas to be concerned with would include spine, lungs mostly and endocardium.
[2017-03-06] MEDS: HYDROcodone/Acetaminophen 10/325 mg Tablet PO PRN (16:19)
[2017-03-06 17:06] LABS: Hemoglobin 7.6 g/dL (14.0-18.0)
[2017-03-06] MEDS: Morphine 4 MG/ML VIAL SLOW IVP PRN (17:55)
[2017-03-06] MEDS: Tamsulosin HCl 0.4 MG CAP PO SCH (21:27)
[2017-03-06] MEDS: Rifampin 300 MG CAP PO SCH (21:27)
[2017-03-06] MEDS: Atorvastatin Calcium 40 MG TAB PO SCH (21:27)
[2017-03-07 05:35] LABS: #Lymphocytes 0.8 thou/uL (1.20-3.40); #Monocytes 0.9 thou/uL (0.11-0.59); #Neutrophils 16.4 thou/uL (1.40-6.50); %Eosinophils 0.1 % (0.0-10.0); %Lymphocytes 4.3 % (21.0-51.0); %Monocytes 4.8 % (0.0-10.0); %Neutrophils 90.8 % (42.0-75.0); Hemoglobin 6.9 g/dL (14.0-18.0); Mean Corpuscular HGB CONC 30.4 g/dL (32.0-36.0); Mean Platelet Volume 7.6 fL (7.4-10.4); Platelet Count 254 thou/uL (130-400); Red Blood Cell (RBC) Count 2.22 mill/uL (4.70-6.10)
[2017-03-07] MEDS: Sodium Chloride 0.9% 1,000 ML IV SCH (05:42)
[2017-03-07 05:44] LABS: Hemoglobin 6.8 g/dL (14.0-18.0); Mean Corpuscular HGB CONC 30.3 g/dL (32.0-36.0); Mean Corpuscular Hemoglobin 30.9 pg (27.0-31.0); Mean Platelet Volume 7.8 fL (7.4-10.4); Platelet Count 251 thou/uL (130-400); Red Blood Cell (RBC) Count 2.21 mill/uL (4.70-6.10); White Blood Cell (WBC) Count 17.5 thou/uL (4.8-10.8)
[2017-03-07] MEDS: CEFAZOLIN/Water 2 GM/20 ML SYRINGE SLOW IVP SCH ×3 (06:10→21:08)
[2017-03-07] MEDS: Morphine 4 MG/ML VIAL SLOW IVP PRN (06:11)
--- NOTE | 2017-03-07 07:54 | PDOC.FM ---
- Subjective Subjective: Pt seen at bedside in NAD. SILAS overnight. Tolerating diet well, pain controlled. Pt denies CP, SOB, abd pain, NVD. - Objective MAR Reviewed: Yes Vital Signs & Weight: Vital Signs (12 hours) Temp Pulse Resp BP Pulse Ox 03/07/17 04:10 97.6 F 70 18 156/63 H 98 03/07/17 04:05 98 03/06/17 23:38 97.9 F 61 16 133/68 93 L 03/06/17 20:20 97.7 F 67 20 93 L 03/06/17 20:00 97.7 F 67 20 134/90 100 Weight Admit Weight 68.9 kg Weight 68.9 kg Most Recent Monitor Data Heart Rate from ECG 112 NIBP 147/86 NIBP BP-Mean 114 Respiration from ECG 21 SpO2 100 I&O: 03/06/17 03/07/17 03/08/17 06:59 06:59 06:59 Intake Total 1309 900 Output Total 835 1810 Balance 474 -910 Result Diagrams: 03/07/17 05:11 03/06/17 05:25 Phys Exam - Physical Examination Constitutional: NAD HEENT: PERRLA Respiratory: no rales, no rhonchi scant bibasilar wheezes Cardiovascular: RRR NSR on exam Gastrointestinal: soft, non-tender Musculoskeletal: pulses present Neurological: moves all 4 limbs surgical area c/d/i Psychiatric: normal affect, A&O x 3 Dx/Plan (1) Septic joint Status: Acute Qualifiers: Septic arthritis location: hip Septic arthritis organism: due to unspecified organism Laterality: right Qualified Code(s): M00.9 - Pyogenic arthritis, unspecified Plan: -pt presented for worsening hip pain, swelling, and redness at incision site s/ p right hip hemiarthroplasty on 01/16/17 -XR reveals areas of inflammation surrounding hip replacement -pt also presented with fever, leukocytosis, and hypotension initially meeting diagnostic criteria for septic shock -pt was admitted to CCU -orthopedic surgery consulted -after aggressive IVF and addition of hydrocortisone, pt's BP stabilized and pt did not require pressor support -MAP consistently above 80, continue to monitor closely -blood and wound cultures have been drawn and show MSSA bacteremia -pt started on rocephin and vancomycin per surgical team. vanc trough therapeutic at 17.5 -on 03/05 pt had removal of previous hardware and replacement with antibiotic spacer -continue to monitor, plan per surgery team (2) MSSA (methicillin susceptible Staphylococcus aureus) septicemia Code(s): A41.01 - SEPSIS DUE TO METHICILLIN SUSCEPTIBLE STAPHYLOCOCCUS AUREUS Status: Acute Plan: -surgery has also consulted ID, recs greatly appreciated -transitioned to cefazolin and rifampin -plan for PICC placement and IV abx for 6 weeks (3) Macrocytic anemia Code(s): D53.9 - NUTRITIONAL ANEMIA, UNSPECIFIED Status: Acute Plan: -slight fall in Hgb post op with this AM 6.8 -transfuse 1 unit and follow post transfusion H/H (4) ERIKA (acute kidney injury) Code(s): N17.9 - ACUTE KIDNEY FAILURE, UNSPECIFIED Status: Acute Plan: -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 ortho currently has pt on ASA 325 BID. -consider addition of anticoagulation prior to discharge (7) Peripheral neuropathy Code(s): G62.9 - POLYNEUROPATHY, UNSPECIFIED Status: Chronic Qualifiers: Peripheral neuropathy type: polyneuropathy, unspecified Qualified Code(s): G62.9 - Polyneuropathy, unspecified Plan: -continue home gabapentin - Plan Plan: dispo: Pt stable and doing well. Abx coverage changed, ID recs greatly appreciated. Pt to have PICC line placed. Will transfuse 1 unit pRBC this AM and follow H/H. Pt will likely be transitioned to inpatient rehab vs SNF, ortho recs greatly appreciated. Continue to monitor.
[2017-03-07] MEDS: Arformoterol 15 MCG/2 ML NEB NEB SCH ×2 (08:16→19:37)
[2017-03-07] MEDS: Budesonide 0.25 MG/2 ML NEB INH SCH ×2 (08:20→19:36)
[2017-03-07] MEDS: predniSONE 5 MG TAB PO SCH (08:44)
[2017-03-07] MEDS: Digoxin 0.125 MG TAB PO SCH (08:45)
[2017-03-07] MEDS: Gabapentin 300 MG CAP PO SCH ×3 (08:45→21:09)
[2017-03-07] MEDS: Ferrous Gluconate 324 MG TAB PO SCH ×2 (08:47→18:26)
[2017-03-07] MEDS: Aspirin 325 MG TAB PO SCH ×2 (08:48→21:09)
[2017-03-07] MEDS: Senokot S 8.6-50 MG TAB PO SCH ×2 (08:48→21:09)
[2017-03-07] MEDS: Carvedilol 3.125 MG TAB PO SCH ×2 (08:48→21:10)
[2017-03-07] MEDS: Amiodarone 200 MG TAB PO SCH ×2 (08:48→21:09)
[2017-03-07] MEDS: Multivitamin W/ Minerals 1 TAB PO SCH (08:48)
[2017-03-07] MEDS: Rifampin 300 MG CAP PO SCH ×2 (10:46→21:09)
[2017-03-07] MEDS: HYDROcodone/Acetaminophen 10/325 mg Tablet PO PRN ×2 (10:49→21:10)
--- NOTE | 2017-03-07 15:25 | PRG ---
DATE OF SERVICE: 03/07/2017 Mr. Cao is a pleasant 81-year-old patient who was admitted with an infected hip prosthesis foll owing hip replacement several weeks ago. He had to have further surgery and was also seen in consult ation by Dr. Almaraz. Dr. Almaraz's recommendations were made for 6 weeks of intravenous antibiotic ther apy and we appreciate his input. In the event clinically Mr. Cao is looking and feeling fine. He is currently afebrile with normal vital signs.
[2017-03-07 16:45] LABS: Hemoglobin 8.3 g/dL (14.0-18.0)
[2017-03-07] MEDS: Tamsulosin HCl 0.4 MG CAP PO SCH (21:09)
[2017-03-07] MEDS: Atorvastatin Calcium 40 MG TAB PO SCH (21:09)
--- NOTE | 2017-03-07 21:09 | PRG ---
DATE OF SERVICE: 03/07/2017 SERVICE: Pulmonary Medicine. INTERVAL HISTORY: Patient is breathing fine. He indicates that his breathing is actually at baselin e, though he does have a little bit of increased work of breathing when I watch him. Otherwise, ther e has been no significant change in his condition. He denies having any significant cough or sputum production. He has not had any fevers, chills, nausea, or vomiting. He is looking forward to get mo ving on to rehabilitation soon enough. After this is completed, he is actually asked me about a pulm onary rehabilitation whether or not this is an option for him. I left that for him, discussed with Sandy Forrest. PHYSICAL EXAMINATION: VITAL SIGNS: Afebrile, pulse 60, blood pressure 139/65, respirations 16, saturation 98% on 2 liters nasal cannula. GENERAL: Patient is awake and alert in no apparent distress. LUNGS: Decreased air entry. There is a prolonged expiratory phase with both polyphonic wheezing, an d crackles present. No rhonchi. HEART: Normal rate, regular. ABDOMEN: Soft, nontender, nondistended. Bowel sounds are positive. MUSCULOSKELETAL: No cyanosis or clubbing. There is a diffuse 1-2+ pitting throughout. GENITOURINARY: Cardona catheter in place. NEUROLOGIC: Grossly nonfocal. LABORATORY DATA: Hemoglobin 8.3, WBC 18.0, platelets 254,000. INR 1.0. Basic metabolic profile was previously unremarkable. Urinalysis is negative. Digoxin level is below the assay limit of 0.15 pr eviously. Vancomycin trough 17.5. Staph aureus is a pansensitive organism and growing in the hip cu lture, blood culture x2. No repeat blood cultures have been obtained. ASSESSMENT: 1. Chronic hypoxic respiratory failure. 2. Chronic obstructive pulmonary disease. 3. Septic arthritis secondary to methicillin-susceptible Staphylococcus aureus. 4. Bacteremia secondary to methicillin-sensitive Staphylococcus aureus. PLAN: I will repeat blood cultures. If these turned out positive, evaluation for disseminated infec tion may need to be considered. Dr. Forrest will assume care in the morning.
[2017-03-08] MEDS: Sodium Chloride 0.9% 1,000 ML IV SCH ×2 (00:51→19:43)
[2017-03-08 05:51] LABS: Hemoglobin 7.6 g/dL (14.0-18.0); Mean Corpuscular HGB CONC 31.3 g/dL (32.0-36.0); Mean Corpuscular Hemoglobin 31.1 pg (27.0-31.0); Mean Corpuscular Volume 99.4 fl (80.0-94.0); Mean Platelet Volume 8.1 fL (7.4-10.4); Platelet Count 213 thou/uL (130-400); RBC Distribution Width 16.9 % (11.5-14.5); Red Blood Cell (RBC) Count 2.46 mill/uL (4.70-6.10); White Blood Cell (WBC) Count 8.8 thou/uL (4.8-10.8)
[2017-03-08] MEDS: HYDROcodone/Acetaminophen 10/325 mg Tablet PO PRN ×3 (06:24→20:43)
[2017-03-08] MEDS: Furosemide 20 MG/2 ML VIAL SLOW IVP SCH ×3 (06:26→06:28)
[2017-03-08] MEDS: CEFAZOLIN/Water 2 GM/20 ML SYRINGE SLOW IVP SCH ×3 (06:26→20:44)
[2017-03-08] MEDS: Arformoterol 15 MCG/2 ML NEB NEB SCH ×2 (06:27→20:19)
[2017-03-08] MEDS: Budesonide 0.25 MG/2 ML NEB INH SCH ×2 (06:30→20:21)
--- NOTE | 2017-03-08 07:46 | PDOC.FM ---
- Subjective Subjective: Pt seen at bedside in NAD. SILAS overnight. Tolerating diet well, pain controlled. Pt denies CP, SOB, abd pain, NVD. - Objective MAR Reviewed: Yes Vital Signs & Weight: Vital Signs (12 hours) Temp Pulse Resp BP Pulse Ox 03/08/17 06:27 59 L 16 99 03/08/17 04:40 97.8 F 52 L 18 138/62 100 03/08/17 04:34 97 03/08/17 00:15 98.0 F 57 L 16 145/63 H 99 03/07/17 20:32 97.9 F 61 18 155/71 H 99 03/07/17 20:30 97.9 F 61 18 99 Weight Admit Weight 68.9 kg Weight 68.9 kg Most Recent Monitor Data Heart Rate from ECG 112 NIBP 147/86 NIBP BP-Mean 114 Respiration from ECG 21 SpO2 100 I&O: 03/07/17 03/08/17 03/09/17 06:59 06:59 06:59 Intake Total 900 1830 Output Total 1810 1100 Balance -910 730 Result Diagrams: 03/08/17 05:20 03/06/17 05:25 Phys Exam - Physical Examination Constitutional: NAD HEENT: PERRLA Respiratory: no rales, no rhonchi scant bibasilar wheezes Cardiovascular: RRR NSR on exam Gastrointestinal: soft, non-tender Musculoskeletal: pulses present Neurological: moves all 4 limbs Psychiatric: A&O x 3 Skin: cap refill <2 seconds Deviation from normal: surgical site c/d/i Dx/Plan (1) Septic joint Status: Acute Qualifiers: Septic arthritis location: hip Septic arthritis organism: due to unspecified organism Laterality: right Qualified Code(s): M00.9 - Pyogenic arthritis, unspecified Plan: -pt presented for worsening hip pain, swelling, and redness at incision site s/ p right hip hemiarthroplasty on 01/16/17 -XR reveals areas of inflammation surrounding hip replacement -pt also presented with fever, leukocytosis, and hypotension initially meeting diagnostic criteria for septic shock -pt was admitted to CCU -orthopedic surgery consulted -after aggressive IVF and addition of hydrocortisone, pt's BP stabilized and pt did not require pressor support -MAP consistently above 80, continue to monitor closely -blood and wound cultures have been drawn and show MSSA bacteremia -pt started on rocephin and vancomycin per surgical team. vanc trough therapeutic at 17.5 -on 03/05 pt had removal of previous hardware and replacement with antibiotic spacer -continue to monitor, plan per surgery team (2) MSSA (methicillin susceptible Staphylococcus aureus) septicemia Code(s): A41.01 - SEPSIS DUE TO METHICILLIN SUSCEPTIBLE STAPHYLOCOCCUS AUREUS Status: Acute Plan: -surgery has also consulted ID, recs greatly appreciated -transitioned to cefazolin and rifampin -plan for PICC placement and IV abx for 6 weeks (3) Macrocytic anemia Code(s): D53.9 - NUTRITIONAL ANEMIA, UNSPECIFIED Status: Acute Plan: -slight fall in Hgb post op -transfused 1 unit on 03/07 and hgb responded well -B12 normal, folate pending -continue to monitor (4) ERIKA (acute kidney injury) Code(s): N17.9 - ACUTE KIDNEY FAILURE, UNSPECIFIED Status: Acute Plan: -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 ortho currently has pt on ASA 325 BID. -with hasbled score of 3, pt high risk for anticoagulation, likely cont with ASA at discharge (7) Peripheral neuropathy Code(s): G62.9 - POLYNEUROPATHY, UNSPECIFIED Status: Chronic Qualifiers: Peripheral neuropathy type: polyneuropathy, unspecified Qualified Code(s): G62.9 - Polyneuropathy, unspecified Plan: -continue home gabapentin - Plan Plan: dispo: Pt stable and doing well. Continue IV abx. PICC line placement. Specialist recs greatly appreciated. Likely SNF placement with need for longterm abx and continued PT. Continue to monitor.
[2017-03-08] MEDS: Ferrous Gluconate 324 MG TAB PO SCH ×2 (08:54→17:24)
[2017-03-08] MEDS: Senokot S 8.6-50 MG TAB PO SCH ×2 (08:54→19:48)
[2017-03-08] MEDS: predniSONE 5 MG TAB PO SCH (08:54)
[2017-03-08] MEDS: Aspirin 325 MG TAB PO SCH ×2 (08:55→20:43)
[2017-03-08] MEDS: Gabapentin 300 MG CAP PO SCH ×3 (08:55→20:43)
[2017-03-08] MEDS: Multivitamin W/ Minerals 1 TAB PO SCH (08:55)
[2017-03-08] MEDS: Amiodarone 200 MG TAB PO SCH ×2 (08:55→20:44)
[2017-03-08] MEDS: Carvedilol 3.125 MG TAB PO SCH ×2 (08:55→20:44)
[2017-03-08] MEDS: Digoxin 0.125 MG TAB PO SCH (08:55)
--- NOTE | 2017-03-08 09:36 | ADD-PRG ---
DATE OF SERVICE: 03/08/2017 This is an addendum to the note of Dr. Leobardo Simon. Mr. Cao looks fine this morning. He is sitting in his chair, undergoing physical therapy. We appreciate the recommendations of Dr. Licona yesterday. He suggested further blood cultures which i f positive, we need to consider the possibility of remote sources of infection. I would recommend i f repeat blood cultures are positive we consider an echocardiogram to make certain the patient does n ot have bacterial endocarditis. Clinically he seems to be improving and says that he is "at about 70 %". His vital signs this morning are stable with a blood pressure of 138/62. His pulse rate is 52 a nd irregularly irregular and his respirations are 18 and not labored.
[2017-03-08] MEDS: Rifampin 300 MG CAP PO SCH ×2 (10:06→20:44)
--- NOTE | 2017-03-08 13:11 | SPC ---
LEFT UPPER EXTREMITY PICC PLACEMENT WITH ULTRASOUND GUIDANCE: Date: 03-08-2017 History: 81-year-old male with a hip infection in need of IV antibiotics. FINDINGS: Informed consent obtained prior to the procedure. Left antecubital fossa prepped and draped in normal sterile fashion. Skin overlying the left basilic vein anesthetized with 1% buffered Lidocaine and accessed with sonographic guidance. A 018 wire was a dvanced through the needle to the IVC and retracted to the cavoatrial junction. Intravascular length calculated at 47 cm. Needle was removed and replaced with a peel-away sheath. PICC was cut to 47 cm a nd advanced over the wire. Peel-away sheath and wire were removed. Tip of the catheter overlies the c avoatrial junction. The catheter flushes well and is ready for use. Exposure Data: 0.0 minutes. Fluoroscopic dose: 126 mGy*cm^2. IMPRESSION: Successful ultrasound guided left upper extremity PICC placement. POS: EMILY
[2017-03-08 15:14] LABS: Hematocrit 28.1 % (37.5-51.0); RBC Folate Test Component 1808 ng/mL (>498)
--- NOTE | 2017-03-08 16:30 | PRG ---
DATE OF SERVICE: 03/08/2017 SUBJECTIVE: The patient is doing well with physical therapy, had some bleeding at the incision site. No respiratory symptoms or abdominal pain, no diarrhea. OBJECTIVE: VITAL SIGNS: He has been afebrile. Blood pressure 130/67, pulse 63, respirations 16-20, O2 sat 99%. GENERAL: Awake, alert, and oriented. LUNGS: With clear breath sounds. CARDIOVASCULAR: S1, S2, regular rate, no murmurs. ABDOMEN: Soft and not distended. Right hip incision dressing with saturation of blood indicating pe rsistent bleeding, not much tenderness. LABORATORY DATA: White cell count down to 8.8, hemoglobin down to 7.6, platelets are 213. Chemistry with a creatinine of 0.88, sodium 140, potassium 4.3. Microbiology as noted previously. Currently, he is on rifampin and cefazolin. ASSESSMENT AND DISCUSSION: Chronic obstructive pulmonary disease, emphysema, prior history of myocar dial infarction with coronary artery disease, atrial fibrillation, fracture of the right hip followed by hemiarthroplasty and methicillin-susceptible Staphylococcus aureus infection, status post removal of the hemiarthroplasty and placement of bipolar implant. Currently to continue cefazolin. End shefali e of therapy is 04/17/2017. Weekly labs. After that, transition to oral Keflex suppression.
--- NOTE | 2017-03-08 17:21 | PRG ---
DATE OF SERVICE: 03/08/2017 SUBJECTIVE: Mr. Cao is afebrile, heart rate 60, respiratory rate 20, oximetry is 99 on 2 liter s, blood pressure 133/67. LUNGS: Clear. HEART: Regular rhythm. ABDOMEN: Soft. He has a PICC line in place in his left upper extremity. IMPRESSION: 1. Chronic obstructive pulmonary disease. 2. Chronic hypoxic respiratory failure, on oxygen at home. 3. Septic arthritis secondary to methicillin-sensitive Staphylococcus. 4. Bacteremia with his arthritis. 5. History of an empyema treated with chest tube drainage for close to a year, chest tube was slowly advanced and eventually fell out. This was in his right hemithorax. 6. History of deconditioning. 7. History of coronary disease. 8. History of atrial fibrillation. PLAN: Continue physical therapy, wound care and IV antibiotics. Probably should have repeat culture s to document clearing of his bacteremia.
[2017-03-08] MEDS: Tamsulosin HCl 0.4 MG CAP PO SCH (20:44)
[2017-03-08] MEDS: Atorvastatin Calcium 40 MG TAB PO SCH (20:44)
[2017-03-09] MEDS: HYDROcodone/Acetaminophen 10/325 mg Tablet PO PRN ×3 (01:02→14:30)
[2017-03-09] MEDS: CEFAZOLIN/Water 2 GM/20 ML SYRINGE SLOW IVP SCH ×2 (05:43→14:27)
[2017-03-09] MEDS: Furosemide 20 MG/2 ML VIAL SLOW IVP SCH (05:43)
[2017-03-09 06:27] LABS: Hemoglobin 7.5 g/dL (14.0-18.0); Mean Corpuscular HGB CONC 31.4 g/dL (32.0-36.0); Mean Corpuscular Hemoglobin 31.4 pg (27.0-31.0); Platelet Count 224 thou/uL (130-400); RBC Distribution Width 16.6 % (11.5-14.5); Red Blood Cell (RBC) Count 2.37 mill/uL (4.70-6.10); White Blood Cell (WBC) Count 7.2 thou/uL (4.8-10.8)
--- NOTE | 2017-03-09 08:21 | PDOC.FM ---
- Subjective Subjective: Pt seen at bedside in NAD. SILAS overnight. Pt went for PICC placement yesterday. Tolerating diet well, pain controlled. Pt denies CP, SOB, abd pain, NVD. Nurse notes some increased drainage from right hip wound bandage. - Objective MAR Reviewed: Yes Vital Signs & Weight: Vital Signs (12 hours) Temp Pulse Resp BP Pulse Ox 03/09/17 07:20 98.0 F 65 16 124/61 97 03/09/17 04:00 98.0 F 56 L 19 146/69 H 100 03/09/17 00:00 97.8 F 59 L 19 156/70 H 100 03/08/17 20:30 98.0 F 61 19 100 03/08/17 20:21 99 Weight Admit Weight 68.9 kg Weight 68.9 kg Most Recent Monitor Data Heart Rate from ECG 112 NIBP 147/86 NIBP BP-Mean 114 Respiration from ECG 21 SpO2 100 I&O: 03/08/17 03/09/17 03/10/17 06:59 06:59 06:59 Intake Total 1830 800 Output Total 1100 600 Balance 730 200 Result Diagrams: 03/09/17 04:54 03/06/17 05:25 Phys Exam - Physical Examination Constitutional: NAD HEENT: PERRLA Respiratory: no rales, no rhonchi, clear to auscultation bilateral Cardiovascular: RRR Gastrointestinal: soft, non-tender Neurological: moves all 4 limbs Psychiatric: A&O x 3 Skin: cap refill <2 seconds Dx/Plan (1) Septic joint Status: Acute Qualifiers: Septic arthritis location: hip Septic arthritis organism: due to unspecified organism Laterality: right Qualified Code(s): M00.9 - Pyogenic arthritis, unspecified Plan: -pt presented for worsening hip pain, swelling, and redness at incision site s/ p right hip hemiarthroplasty on 01/16/17 -XR reveals areas of inflammation surrounding hip replacement -pt also presented with fever, leukocytosis, and hypotension initially meeting diagnostic criteria for septic shock -pt was admitted to CCU -orthopedic surgery consulted -after aggressive IVF and addition of hydrocortisone, pt's BP stabilized and pt did not require pressor support -MAP consistently above 80, continue to monitor closely -blood and wound cultures have been drawn and show MSSA bacteremia -pt started on rocephin and vancomycin per surgical team. vanc trough therapeutic at 17.5 -on 03/05 pt had removal of previous hardware and replacement with antibiotic spacer -continue to monitor, plan per surgery team (2) MSSA (methicillin susceptible Staphylococcus aureus) septicemia Code(s): A41.01 - SEPSIS DUE TO METHICILLIN SUSCEPTIBLE STAPHYLOCOCCUS AUREUS Status: Acute Plan: -surgery has also consulted ID, recs greatly appreciated -transitioned to cefazolin and rifampin -PICC placement and IV abx for 6 weeks -repeat blood cultures drawn on 03/08 thusfar show no growth (3) Macrocytic anemia Code(s): D53.9 - NUTRITIONAL ANEMIA, UNSPECIFIED Status: Acute Plan: -slight fall in Hgb post op -transfused 1 unit on 03/07 and hgb responded well -B12 normal, folate normal -continue to monitor (4) ERIKA (acute kidney injury) Code(s): N17.9 - ACUTE KIDNEY FAILURE, UNSPECIFIED Status: Acute Plan: -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 ortho currently has pt on ASA 325 BID. -with hasbled score of 3, pt high risk for anticoagulation, likely cont with ASA at discharge (7) Peripheral neuropathy Code(s): G62.9 - POLYNEUROPATHY, UNSPECIFIED Status: Chronic Qualifiers: Peripheral neuropathy type: polyneuropathy, unspecified Qualified Code(s): G62.9 - Polyneuropathy, unspecified Plan: -continue home gabapentin - Plan Plan: dispo: Pt stable and doing well. Continue IV abx. PICC line placement. Specialist recs greatly appreciated. Likely SNF/rehab placement with need for terminal computer operator abx and continued PT. If pt accepted today, likely discharge. Continue to monitor.
[2017-03-09] MEDS: predniSONE 5 MG TAB PO SCH (08:33)
[2017-03-09] MEDS: Aspirin 325 MG TAB PO SCH (08:33)
[2017-03-09] MEDS: Carvedilol 3.125 MG TAB PO SCH (08:34)
[2017-03-09] MEDS: Amiodarone 200 MG TAB PO SCH (08:34)
[2017-03-09] MEDS: Ferrous Gluconate 324 MG TAB PO SCH ×2 (08:34→16:21)
[2017-03-09] MEDS: Multivitamin W/ Minerals 1 TAB PO SCH (08:34)
[2017-03-09] MEDS: Gabapentin 300 MG CAP PO SCH ×2 (08:34→14:29)
[2017-03-09] MEDS: Digoxin 0.125 MG TAB PO SCH (08:34)
--- NOTE | 2017-03-09 08:52 | PRG ---
DATE OF SERVICE: 03/09/2017 Mr. Cao has no complaints. He says he is feeling better. He says he sat up for several hours yesterday. His lungs are free of wheezes. IMPRESSION: 1. Chronic obstructive pulmonary disease, clinically stable. 2. Methicillin susceptible Staphylococcus bacteremia. Follow up blood cultures from the 2nd are neg ative so far. PLAN: Continue IV antibiotics per Infectious Disease and wound care per Orthopedic Surgery.
[2017-03-09] MEDS: Budesonide 0.25 MG/2 ML NEB INH SCH (10:36)
[2017-03-09] MEDS: Arformoterol 15 MCG/2 ML NEB NEB SCH (10:37)
[2017-03-09] MEDS: Rifampin 300 MG CAP PO SCH (11:00)
[2017-03-09] MEDS: Senokot S 8.6-50 MG TAB PO SCH (11:02)
--- NOTE | 2017-03-09 11:32 | ADD-PRG ---
DATE OF SERVICE: 03/09/2017 This is an addendum to the note of Dr. Leobardo Simon. Mr. Cao is resting quietly this morning in no distress. He is afebrile with normal vital signs . His hemoglobin has been mostly stable since the 1st drawing from 8.3 to 7.6, today it is 7.5. Tamara ab has been established and he will be discharged perhaps later today or tomorrow to continue antibio tic therapy for 6 weeks. So far his repeat blood cultures are negative, but these will need to be mo nitored.
[2017-03-09 16:52] VITALS: BP 164/71; TEMP 97.9
--- NOTE | 2017-03-09 18:36 | DIS-2 ---
DATE OF ADMISSION: 03/04/2017 DATE OF DISCHARGE: 03/09/2017 RESIDENT: Dr. Leobardo Simon. ADMITTING ATTENDING: Dr. Tung Ojeda. DISCHARGE ATTENDING: Dr. Armaan Castillo. CONSULTS: 1. Orthopedic Surgery, Dr. Lopez Partida and Dr. Villa Bah. 2. Pulmonology, Dr. Surinder Galeano. 3. Infectious Disease, Dr. Aj Almaraz. 4. PT and OT. 5. Case management. PROCEDURES: 1. Removal of hardware and conversion of previous hip surgery to total hip arthroplasty using high dose antibiotic impregnated cement by Dr. Villa Bah on 03/05/2017. 2. Chest x-ray performed on 03/04/2017 showed stable appearing pleural and parenchymal opacity in the right base with some volume loss with biapical pleural thickening, no evidence of confluent process or overt edema. 3. Hip x-ray performed on 03/04/2017 showed increased soft tissue fullness over the right thigh. 4. Pelvic x-ray performed on 03/04/2017 showed a stable exam. 5. Repeat hip x-ray on 03/05/2017 showed postop changes of the right hip hemiarthroplasty in good position and alignment with a femoral head prosthesis. 6. Left upper extremity PICC placement with ultrasound guidance performed on . PRIMARY DIAGNOSES: 1. Methicillin-susceptible Staphylococcus aureus bacteremia, secondary to septic arthritis, status post hardware replacement and antibiotic cement spacer. 2. Septic shock secondary to #1, resolved. 3. Acute kidney injury secondary to #1, resolved. 4. Chronic kidney disease, stage 2. 5. Chronic obstructive pulmonary disease. 6. History of coronary artery disease. 7. Paroxysmal atrial fibrillation. 8. Macrocytic anemia likely secondary to chronic disease and postoperative changes. DISCHARGE MEDICATIONS: 1. Rifampin 300 mg p.o. b.i.d. until 04/17/2017. 2. Ancef 2 grams IV q.8 hours until 04/17/2017. 3. Temazepam 15 mg p.o. at bedtime p.r.n. 4. Tamsulosin 0.4 mg p.o. at bedtime. 5. Prednisone 10 mg p.o. daily. 6. Docusate 100 mg p.o. daily. 7. Amiodarone 200 mg p.o. b.i.d. 8. Atorvastatin 40 mg p.o. at bedtime. 9. Pulmicort 2 puffs inhaled b.i.d. 10. Digoxin 125 mcg p.o. daily. 11. Vitamin D3 of 5000 units p.o. daily. 12. Ferrous sulfate 325 mg p.o. b.i.d. 13. Tramadol 50 mg p.o. b.i.d. p.r.n. 14. Ventolin 2 puffs nebulized q.i.d. p.r.n. 15. DuoNebs t.i.d. p.r.n. 16. Folic acid 2 tabs p.o. b.i.d. 17. Aspirin 325 mg p.o. daily. 18. Fountain 10/325 q.4 hours p.r.n. 19. Melatonin 3 mg p.o. at bedtime p.r.n. 20. Carvedilol 3.125 mg p.o. b.i.d. 21. Gabapentin 600 mg p.o. t.i.d. HISTORY OF PRESENT ILLNESS AND HOSPITAL COURSE: The patient is a very pleasant 81-year-old male who initially presented with complaints of right hip pain. The patient was noted to have a right hemiarthroplasty performed by Dr. Bah in mid January and returned with evidence of a joint infection. The patient was evaluated by Orthopedic Surgery and was taken back for incision and drainage and ultimately replacement of the hardware. On initial admission, the patient was considered in septic shock with hypotension despite adequate fluid resuscitation. This resolved quickly with minimal doses of hydrocortisone and the patient's blood pressure was stable throughout the rest of his hospitalization. After surgical revision of his septic joint, the patient began responding extremely well with physical therapy. The patient was stable for transfer out of the critical care unit one day postoperatively. Ultimately , the decision was made that the patient would benefit from continued rehabilitation and was therefore transitioned to inpatient rehabilitation. Regarding the patient's wound and blood cultures, he was found to have both an MSSA wound infection and MSSA bacteremia. At this time, Dr. Aj Almaraz with Infectious Disease was consulted, who recommended 6 weeks of Ancef and rifampin with subsequent Keflex suppressive therapy thereafter. Therefore, the patient had a PICC line placed prior to discharge for long-term IV antibiotic use. Regarding the patient's macrocytic anemia, a workup was completed which revealed a normal folate and B12 level. It was thought that this was likely secondary to chronic disease and postoperative changes. The patient did require 1 unit of packed red blood cells transfused on 03/07/2017. His hemoglobin prior to discharge was stable at 7.5. Discussion was had with multiple physicians as to potential anticoagulation with the patient's history of paroxysmal atrial fibrillation. It was thought that due to the patient's significant bleeding risk with a HAS-BLED score of 3, the patient would benefit from continued aspirin use and holding of any further anticoagulation. The patient's hospital course was otherwise uncomplicated. DISPOSITION: Stable. DISCHARGE INSTRUCTIONS: 1. Location: [facility]. 2. Activity: As tolerated with physical and occupational therapy. 3. Diet: Heart healthy diet. 4. Followup: The patient was instructed to follow up with his primary care physician, Dr. Mayank Kennedy. The patient was also instructed to follow up with Dr. Villa Bah and Dr. Aj Almaraz for continued treatment of his hip prosthesis and bacteremia. Greater than 30 minutes was spent preparing this discharge. [facility]
--- NOTE | 2017-03-24 15:25 | EKG ---
Test Reason : DIANGOSING PURPOSES Blood Pressure : / mmHG Vent. Rate : 068 BPM Atrial Rate : 068 BPM P-R Int : 188 ms QRS Dur : 082 ms QT Int : 342 ms P-R-T Axes : 077 035 063 degrees QTc Int : 363 ms Normal sinus rhythm Nonspecific T wave abnormality Abnormal ECG Confirmed by MICHAEL HOLLAND ([id number]), editorial specialist JANNETTE HENDRICKSON ([id number]) on 03/24/2017 3:24:46 PM Referred By: Confirmed By:MICHAEL HOLLAND
--- NOTE | 2017-04-01 14:59 | ADD-CON ---
ADDENDUM To the consultation that was originally dictated on 02/06/2017. PLAN: We will be giving the patient nebulizer therapy treatments 3 times daily. Again, his chest x- ray film has been reviewed personally by myself as well as the report and the findings are as noted i n the laboratory data section in the report.
== END 2017-03-09 17:05 | DRG 466 ==
LOC: ERS 13:51 → CCU 17:24 → SURG A 03-06 15:55
PROVIDERS: ADMIT Family Medicine; ATTEND Family Medicine
PROC: 0SR90J9 Replacement of Right Hip Joint with Synthetic Substitute, Cemented, Open Approach (ICD-10-PCS; principal; 2017-03-05)
PROC: 0SP90JZ Removal of Synthetic Substitute from Right Hip Joint, Open Approach (ICD-10-PCS; 2017-03-05)
PROC: 30233N1 Transfusion of Nonautologous Red Blood Cells into Peripheral Vein, Percutaneous Approach (ICD-10-PCS; 2017-03-07)
PROC: 02HV33Z Insertion of Infusion Device into Superior Vena Cava, Percutaneous Approach (ICD-10-PCS; 2017-03-08)
PROC: B548ZZA Ultrasonography of Superior Vena Cava, Guidance (ICD-10-PCS; 2017-03-08)
DX: T84.51XA Infection and inflammatory reaction due to internal right hip prosthesis, initial encounter (principal); A41.01 Sepsis due to Methicillin susceptible Staphylococcus aureus; R65.21 Severe sepsis with septic shock; N17.9 Acute kidney failure, unspecified; J96.11 Chronic respiratory failure with hypoxia; M00.051 Staphylococcal arthritis, right hip; I95.9 Hypotension, unspecified; B95.61 Methicillin susceptible Staphylococcus aureus infection as the cause of diseases classified elsewhere; G62.9 Polyneuropathy, unspecified; Z66 Do not resuscitate; I48.0 Paroxysmal atrial fibrillation; D53.9 Nutritional anemia, unspecified; I25.10 Atherosclerotic heart disease of native coronary artery without angina pectoris; D63.1 Anemia in chronic kidney disease; I25.2 Old myocardial infarction; Z96.641 Presence of right artificial hip joint; Z87.891 Personal history of nicotine dependence; Z99.81 Dependence on supplemental oxygen; Z79.52 Long term (current) use of systemic steroids; I12.9 Hypertensive chronic kidney disease with stage 1 through stage 4 chronic kidney disease, or unspecified chronic kidney disease; N18.2 Chronic kidney disease, stage 2 (mild); J43.1 Panlobular emphysema
CPT/HCPCS: 36415; 36416; 36430; 36569; 51702; 71010; 72170; 80048; 80053; 80162; 80202; 81003; 82607; 82747; 83605; 85025; 85027; 85610; 85730; 86850; 86900; 86901; 87040; 87070; 87077; 87086; 87149; 87186; 87205; 87804; 93005; 93010; 94640; 96361; 96365; 96375; 99292; C1713; C1751; C1769; C1776; G8978-GP-CL; G8979-GP-CJ; G8987-GO-CJ; G8988-GO-CH; J0696; J1100; J1720; J1885; J1940; J2001; J2270; J2405; J2543; J2704; J3010; J3260; J3370; J7050; J7620; J7626; P9016

== ENCOUNTER 2017-12-06 11:11 | Outpatient (CLI) | payer MEDICARE ==
--- NOTE | 2017-12-06 13:38 | RAD ---
RADIOGRAPH CHEST 2 VIEWS: Date: 12-06-17 Time: 11:19 A.M. HISTORY: 82-year-old male with dyspnea. COMPARISON: 03-04-17 FINDINGS: Hyperinflation consistent with COPD. Chronic right pleurodiaphragmatic meniscus, which could be a chr onic right pleural effusion or pleural thickening. Adjacent mild pulmonary density in the right lower lobe adjacent to this was shown by CT of 10-17-14 to have a configuration suggestive of chronic round atelectasis. No pleural effusion on the left side. No pulmonary edema or cardiomegaly. Loop recorder is again noted, implanted in the subcutaneous soft tissues superficial to the left anterior chest wa ll. No pneumothorax. Mild pulmonary scar in the periphery of the left upper lobe. No interval change overall. IMPRESSION: 1. No acute findings. 2. Chronic right basilar pleural thickening or small pleural effusion. 3. Chronic pulmonary density at right lower lobe. 4. Emphysema. VANDANA POS: EMILY
== END 2017-12-06 11:12 | disposition home or self-care (01) ==
LOC: RAD 11:11
PROVIDERS: ATTEND Internal Medicine Critical Care Medicine
DX: R06.00 Dyspnea, unspecified (principal); J43.9 Emphysema, unspecified; J98.4 Other disorders of lung
CPT/HCPCS: 71046

== ENCOUNTER 2018-12-03 23:39 | Inpatient (IN) | payer MEDICARE ==
[2018-12-04 00:49] LABS: #Basophils 0.1 thou/uL (0.0-0.2); #Eosinphils 0.1 thou/uL (0.0-0.7); #Lymphocytes 2.1 thou/uL (1.20-3.40); #Monocytes 1.4 thou/uL (0.11-0.59); #Neutrophils 14.2 thou/uL (1.40-6.50); %Basophils 0.4 % (0.0-1.0); %Eosinophils 0.3 % (0.0-10.0); %Lymphocytes 11.9 % (21.0-51.0); %Monocytes 7.8 % (0.0-10.0); %Neutrophils 79.7 % (42.0-75.0); Hemoglobin 11.8 g/dL (14.0-18.0); Mean Corpuscular HGB CONC 32.7 g/dL (32.0-36.0); Mean Corpuscular Hemoglobin 33.2 pg (27.0-31.0); Mean Platelet Volume 9.4 fL (7.4-10.4); Platelet Count 186 thou/uL (130-400); RBC Distribution Width 15.9 % (11.5-14.5); Red Blood Cell (RBC) Count 3.55 mill/uL (4.70-6.10); White Blood Cell (WBC) Count 17.8 thou/uL (4.8-10.8)
[2018-12-04 01:09] LABS: ALT (SGPT) 102 U/L (8-55); AST (SGOT) 62 U/L (5-34); Albumin 3.9 g/dL (3.4-4.8); Alkaline Phosphatase 124 U/L (40-110); Anion Gap 17 mmol/L (10-20); BUN (Urea Nitrogen) 28 mg/dL (8.4-25.7); Bilirubin, Total 1.4 mg/dL (0.2-1.2); Calc. Creatinine Clearance 0 mL/min (70-130); Calcium 9.4 mg/dL (7.8-10.44); Carbon Dioxide 26 mmol/L (23-31); Chloride 97 mmol/L (98-107); Estimated GFR-MDRD 34; Globulin 2.6 g/dL (2.4-3.5); Glucose 105 mg/dL (83-110); Potassium 3.2 mmol/L (3.5-5.1); Protein, Total 6.5 g/dL (5.8-8.1); Sodium 137 mmol/L (136-145)
[2018-12-04] MEDS ORDERED: Aspirin 325 MG TAB ONE (01:20)
[2018-12-04] MEDS ORDERED: Enoxaparin Sodium 60 MG/0.6 ML SYRINGE ONE (01:20)
[2018-12-04 01:25] LABS: Bilirubin Negative (Negative); Blood, Urine 2+ (Negative); Clarity Turbid (Clear); Glucose, Urine (Dipstick) 100 mg/dL (Negative); Leukocyte 25 Leu/uL (Negative); Nitrite Negative (Negative); Protein, Urine (Dipstick) 300 mg/dL (Neg-Trace); Urobilinogen 3 mg/dL (Less than 2)
[2018-12-04 01:27] LABS: Transitional Epithelial 0-3 HPF (None Seen)
[2018-12-04 01:28] LABS: Bacteria/HPF Rare-Few HPF (None Seen); Renal Epithelial 0-3 HPF (None Seen)
[2018-12-04 01:41] LABS: CKMB 4.8 ng/mL (0-6.6)
--- NOTE | 2018-12-04 06:43 | PDOC.HHP ---
Hospitalist HPI - History of Present Illness Weakness History of Present Illness: Patient is 83M with PMH o2 dependant COPD, presents to ED with complaint of weakness, multiple falls "sitting around too long" and states he lost all of his muscles. reports progressive weakness for the past year, worsening in the past few months with inability to complete ADLs, fallx2 today back into his recliner upon standing. denies syncope, palpitations, chest pain, or focal weakness. discussed with Dr Powell of EM, patient recovered will after rehab this april could benefit from rehab/SNF, recommended patient for admission for social issues and debility Hospitalist ROS - Review of Systems Constitutional: reports: weakness. denies: fever, chills, sweats, malaise, other Eyes: denies: pain, vision change, conjunctivae inflammation, eyelid inflammation, redness, other Cardiovascular: denies: chest pain, palpitations, orthopnea, paroxysmal noc. dyspnea, edema, light headedness, other Gastrointestinal: denies: nausea, vomiting, abdominal pain, diarrhea, constipation, melena, hematochezia, other Genitourinary: denies: dysuria, frequency, incontinence, hematuria, retention, other Musculoskeletal: reports: other (weakness, multiple falls) Neurological: denies: weakness, numbness, incoordination, change in speech, confusion, seizures, other (no focaol deficits) All other systems reviewed; all pertinent +/- noted in HPI/Subj - Medication Medications: aspirin TABLET : Strength - 81 mg : ORAL Patient Dose: 81 mg Oral once a day. gabapentin TABLET : Strength - 600 mg : ORAL Patient Dose: 600 mg Oral 3 times a day. tamsulosin CAPSULE, EXT RELEASE 24 HR : Strength - 0.4 mg : ORAL Patient Dose: 0.4 mg Oral once a day. predniSONE TABLET : Strength - 10 mg : ORAL Patient Dose: 10 mg Oral once a day. ipratropium-albuterol AMPUL FOR NEBULIZATION (ML) : Strength - 0.5 mg-3 mg ( 2.5 mg base)/3 mL : INHALATION Patient Dose: 1 inhalation Nebulize 3 times a day. temazepam CAPSULE : Strength - 15 mg : ORAL Patient Dose: 15 mg Oral once a day (at bedtime). Vitamin D3 CAPSULE : Strength - 1,000 unit : ORAL Patient Dose: 5000 units Oral once a day. traMADol TABLET : Strength - 50 mg : ORAL Patient Dose: 50 mg Oral 2 times a day. atorvastatin TABLET : Strength - 40 mg : ORAL Patient Dose: 40 mg Oral once a day. folic acid TABLET : Strength - 1 mg : ORAL Patient Dose: unknown mg Oral 2 times a day. digoxin TABLET : Strength - 125 mcg : ORAL Patient Dose: 125 mcg Oral once a day. budesonide AMPUL FOR NEBULIZATION (ML) : Strength - 0.25 mg/2 mL : INHALATION Patient Dose: inhalation Nebulize 2 times a day. carvedilol TABLET : Strength - 3.125 mg : ORAL Patient Dose: 3.125 mg Oral once a day. Advair HFA HFA AEROSOL WITH ADAPTER (GRAM) : Strength - 230 mcg-21 mcg/ actuation : INHALATION Patient Dose: Unknown. Hospitalist History - Past Medical History Other Medical History: CHF, a-fib, asthma, emphysema, Notes: peripheal neuropathy, CAD, [place] 15 years ago , carotid endardectomy BPH, Past medical history includes history of hypertension, Past medical history includes pulmonary disease, asthma, chronic obstructive pulmonary disease. - Past Surgical History Other Surgical History: left carotid endarterectomy, Surgical history of orthopedic surgery, right hip surgery x2 , Date of surgery 01/19/2017, Surgical history of appendectomy. Right lung surgery - per Dr. Frias - 2016. - Family History Family History: reports: no pertinent history - Social History Other Social History: Patient denies alcohol use, Patient denies drug use, Patient is a former tobacco user, chewed tobacco, Patient quit smoking less than 10 years ago, Lives at home, with family, Patient denies alcohol use, Patient denies drug use , Patient currently uses tobacco, chews tobacco. - Exam General Appearance: NAD, awake alert Eye: PERRL, anicteric sclera ENT: normocephalic atraumatic, no oropharyngeal lesions, moist mucosa Neck: supple, symmetric, no JVD, no thyromegaly, no lymphadenopathy, no carotid bruit Heart: RRR, no murmur, no gallops, no rubs, normal peripheral pulses Respiratory: CTAB, no wheezes, no rales, no ronchi, normal chest expansion, no tachypnea, normal percussion Gastrointestinal: soft, non-tender, non-distended, normal bowel sounds, no palpable masses, no hepatomegaly, no splenomegaly, no bruit Extremities: no cyanosis, no clubbing, no edema Skin: normal turgor, no lesions, no rashes Neurological: cranial nerve grossly intact, normal sensation to touch, no weakness, no focal deficits, no new deficit Musculoskeletal: normal tone, normal strength, no muscle wasting Psychiatric: normal affect, normal behavior, A&O x 3 Hospitalist Results - Labs Result Diagrams: 12/04/18 00:32 12/04/18 00:32 Lab results: WBC 17.8 thou/uL (4.8-10.8) H 12/04/18 00:32 Hgb 11.8 g/dL (14.0-18.0) L 12/04/18 00:32 Hct 36.0 % (42.0-52.0) L 12/04/18 00:32 MCV 101.0 fL (78.0-98.0) H 12/04/18 00:32 Plt Count 186 thou/uL (130-400) 12/04/18 00:32 Neutrophils % 79.7 % (42.0-75.0) H 12/04/18 00:32 Sodium 137 mmol/L (136-145) 12/04/18 00:32 Potassium 3.2 mmol/L (3.5-5.1) L 12/04/18 00:32 Chloride 97 mmol/L (98-107) L 12/04/18 00:32 Carbon Dioxide 26 mmol/L (23-31) 12/04/18 00:32 BUN 28 mg/dL (8.4-25.7) H 12/04/18 00:32 Creatinine 1.88 mg/dL (0.7-1.3) H 12/04/18 00:32 Glucose 105 mg/dL (83-110) 12/04/18 00:32 Calcium 9.4 mg/dL (7.8-10.44) 12/04/18 00:32 Total Bilirubin 1.4 mg/dL (0.2-1.2) H 12/04/18 00:32 AST 62 U/L (5-34) H 12/04/18 00:32 ALT 102 U/L (8-55) H 12/04/18 00:32 Alkaline Phosphatase 124 U/L (40-110) H 12/04/18 00:32 CK-MB (CK-2) 4.8 ng/mL (0-6.6) 12/04/18 00:32 Troponin I 0.210 ng/mL (< 0.028) H 12/04/18 03:34 Serum Total Protein 6.5 g/dL (5.8-8.1) 12/04/18 00:32 Albumin 3.9 g/dL (3.4-4.8) 12/04/18 00:32 Urine Ketones Trace mg/dL (Negative) A 12/04/18 01:05 Urine Blood 2+ (Negative) A 12/04/18 01:05 Urine Nitrite Negative (Negative) 12/04/18 01:05 Ur Leukocyte Esterase 25 Saundra/uL (Negative) 12/04/18 01:05 Urine RBC 11-20 HPF (0-3) A 12/04/18 01:05 Urine WBC 7-10 HPF (0-3) A 12/04/18 01:05 Ur Squamous Epith Cells 4-6 HPF (0-3) A 12/04/18 01:05 Urine Bacteria Rare-Few HPF (None Seen) 12/04/18 01:05 Additional comment: BP: 151/72, Pulse: 69, Resp: 20, Pain: 0, O2 sat: 99 on 2L Oxygen, Time: 2018 03:00. Hospitalist H&P A/P - Problem (1) COPD (chronic obstructive pulmonary disease) Status: Acute Qualifiers: COPD type: emphysema Emphysema type: panlobular Qualified Code(s): J43.1 - Panlobular emphysema (2) Empyema Code(s): J86.9 - PYOTHORAX WITHOUT FISTULA Status: Acute (3) HTN (hypertension) Code(s): I10 - ESSENTIAL (PRIMARY) HYPERTENSION Status: Chronic Qualifiers: Hypertension type: essential hypertension Qualified Code(s): I10 - Essential (primary) hypertension (4) Paroxysmal atrial fibrillation with RVR Code(s): I48.0 - PAROXYSMAL ATRIAL FIBRILLATION Status: Chronic - Plan Plan: Patient presented to ED with weakness, brain CT, abd US, CXR ordered by ER but not yet resulted. - consult case management for SNF placement - continue chronic home o2, PT/OT consulted
[2018-12-04 07:10] LABS: Troponin I 0.201 ng/mL (< 0.028)
--- NOTE | 2018-12-04 08:28 | CT ---
PRELIMINARY REPORT/[facility]/EMERGENCY AFTER HOURS PROCEDURE: PROCEDURE INFORMATION: Exam: CT Head without contrast Exam date and time: 12/04/2018 12:22 AM Clinical history: 83 years old, male; Altered mental status/memory loss; Patient HX: Progressive weak ness for the past year, worsening in the past few months with inability to complete adls, fallx2 toda y back into his recliner upon standing. Denies syncope, palpitations, chest pain, or focal weakness. TECHNIQUE: Imaging protocol: Computed tomography of the head without contrast. COMPARISON: No relevant prior studies available. FINDINGS: Brain: There is no acute intracranial hemorrhage, mass effect or midline shift. No large acute territ orial infarct identified. There are patchy regions of hypodensity in the periventricular and subcorti aneesh white matter, likely on the basis of chronic microvascular ischemic disease. A small remote lacunar infarct is seen in the left putamen. Ventricles: The ventricles and sulci are prominent in size, which is likely related to global cerebra l volume loss. Bones/joints: Unremarkable. No acute fracture. Sinuses: Visualized sinuses are unremarkable. No fluid levels. Mastoid air cells: Visualized mastoid air cells are well aerated. Soft tissues: Unremarkable. Vasculature: There are extensive atherosclerotic calcifications at the bilateral carotid siphons. IMPRESSION: No acute intracranial hemorrhage, mass effect or midline shift. Thank you for allowing us to participate in the care of your patient. Dictated and Authenticated by: Yaneth Siegel MD 12/04/2018 12:31 AM Central Time ([place] & [place]) FINAL REPORT EMERGENCY AFTER HOURS CT BRAIN WITHOUT CONTRAST: Date: 12/04/18 FINDINGS/IMPRESSION: I agree with the findings and impression given in the preliminary report per [facility] physician. No evide nce of acute intracranial abnormality. POS: CET
[2018-12-04] MEDS ORDERED: Enoxaparin Sodium 40 MG/0.4 ML SYRINGE ONE (09:04)
--- NOTE | 2018-12-04 09:05 | ULT ---
RIGHT UPPER QUADRNAT ABDOMINAL ULTRASOUND: HISTORY: Right upper quadrant abdominal pain and elevated LFTs. TECHNIQUE: Multiplanar, badillo scale, and color Doppler images were obtained in a right upper quadrant abdominal u ltrasound. FINDINGS: The liver is normal in echogenicity without focal lesions or intrahepatic ductal dilatation. The gal lbladder contains small stones. There is no gallbladder thickening or pericholecystic fluid. The co mmon bile duct is normal measuring 5 mm. The visualized portions of the pancreas are unremarkable. There is limited visualization of the righ t kidney which measures 10.9 cm in length. No obvious hydronephrosis or calculi are seen in the righ t kidney. IMPRESSION: Cholelithiasis. POS: CET
--- NOTE | 2018-12-04 09:26 | RAD ---
SINGLE VIEW OF THE CHEST: COMPARISON: 12/06/2017. HISTORY: Fall with generalized weakness. FINDINGS: A single view of the chest shows a normal-size cardiomediastinal silhouette. A double end production grinder on th e right projects over the left chest wall. There is a small right pleural effusion. Multiple stable bilateral rib fractures are seen. No pneumothorax I present. IMPRESSION: Small right pleural effusion. POS: CET
[2018-12-04] MEDS: Enoxaparin Sodium 40 MG/0.4 ML SYRINGE SC SCH (09:49)
[2018-12-04] MEDS ORDERED: Temazepam 15 MG CAP PO PRN (16:30)
[2018-12-04] MEDS ORDERED: Albuterol Sulfate 2.5 mg/3 ml Neb NEB PRN (16:30)
[2018-12-04] MEDS ORDERED: Senokot S 8.6-50 MG TAB PO PRN (16:30)
[2018-12-04 16:52] LABS: Digoxin Less than 0.15 ng/mL (0.8-2.0)
[2018-12-04] MEDS: Carvedilol 3.125 MG TAB PO SCH (17:41)
[2018-12-04] MEDS: Budesonide 0.25 MG/2 ML NEB INH SCH (19:14)
[2018-12-04] MEDS: Folic Acid 1 MG TAB PO SCH (21:13)
[2018-12-04] MEDS: Temazepam 15 MG CAP PO SCH (21:13)
[2018-12-04] MEDS: Gabapentin 300 MG CAP PO SCH (21:13)
[2018-12-04] MEDS: Atorvastatin Calcium 40 MG TAB PO SCH (21:13)
[2018-12-04] MEDS: Tamsulosin HCl 0.4 MG CAP PO SCH (21:14)
[2018-12-05] MEDS: Budesonide 0.25 MG/2 ML NEB INH SCH ×2 (06:41→19:06)
[2018-12-05] MEDS: Folic Acid 1 MG TAB PO SCH ×2 (08:42→21:56)
[2018-12-05] MEDS: Aspirin Chewable 81 MG TAB PO SCH (08:42)
[2018-12-05] MEDS: Digoxin 0.125 MG TAB PO SCH (08:43)
[2018-12-05] MEDS: Ferrous Sulfate 325 MG TAB PO SCH (08:43)
[2018-12-05] MEDS: Docusate 100 MG CAP PO SCH (08:43)
[2018-12-05] MEDS: Gabapentin 300 MG CAP PO SCH ×3 (08:44→21:56)
[2018-12-05] MEDS: predniSONE 5 MG TAB PO SCH (08:44)
[2018-12-05] MEDS: Enoxaparin Sodium 40 MG/0.4 ML SYRINGE SC SCH (08:44)
[2018-12-05] MEDS: Carvedilol 3.125 MG TAB PO SCH ×2 (09:34→16:58)
--- NOTE | 2018-12-05 10:36 | PDOC.HOSPP ---
- Subjective Encounter Date: 12/05/18 Encounter Time: 10:25 Subjective: Abby Jung called regarding hypotension. Coreg held this am due to low BP per nursing. Admitted overnight due to COPD, frequent falls. Started IVF bolus with NS and telemetry showing A-fib with RVR in low 100's. Pt denies any CP or SOB. States L shoulder sore after falling on it at home. - Objective Vital Signs & Weight: Vital Signs (12 hours) Temp Pulse Pulse Pulse Pulse Resp BP 12/05/18 09:30 85 85 84 84/53 L 12/05/18 08:43 84 12/05/18 07:02 98.0 F 74 20 12/05/18 06:41 77 16 12/05/18 06:37 77 16 12/05/18 04:00 97.2 F L 65 18 BP BP BP Pulse Ox Pulse Ox Pulse Ox 12/05/18 09:30 78/39 L 87/48 L 100 100 12/05/18 08:43 12/05/18 07:02 103/61 100 12/05/18 06:41 99 12/05/18 06:37 99 12/05/18 04:00 128/60 98 Weight Weight 145 lb 7 oz Result Diagrams: 12/04/18 00:32 12/04/18 00:32 Additional Labs: Accuchecks 12/05/18 10:12 POC Glucose 81 Laboratory Tests 12/04/18 12/04/18 12/04/18 00:32 00:32 00:32 Total Bilirubin 1.4 H AST 62 H ALT 102 H Alkaline Phosphatase 124 H Troponin I 0.223 H TSH 3rd Generation 6.0115 H Digoxin 12/04/18 12/04/18 12/04/18 03:34 06:31 06:31 Total Bilirubin AST ALT Alkaline Phosphatase Troponin I 0.210 H 0.201 H TSH 3rd Generation Digoxin Less than 0.15 L Radiology Reviewed by me: Yes (CT brain - no acute process) EKG Reviewed by me: Yes (Tele - A-fib in low 100's) Hospitalist ROS - Medication Medications: Active Medications Generic Name Dose Route Start Last Admin Trade Name Freq PRN Reason Stop Dose Admin Albuterol/Ipratropium 3 ml 12/04/18 18:30 12/05/18 06:37 Duoneb NEB 3 ml TID-RT CLAUDIA Administration Aspirin 81 mg 12/05/18 09:00 12/05/18 08:42 Aspirin Chewable PO 81 mg DAILY CLAUDIA Administration Atorvastatin Calcium 40 mg 12/04/18 21:00 12/04/18 21:13 Lipitor PO 40 mg HS CLAUDIA Administration Budesonide 0.25 mg 12/04/18 18:30 12/05/18 06:41 Pulmicort Neb Solution INH 0.25 mg BID-RT CLAUDIA Administration Carvedilol 3.125 mg 12/04/18 17:00 12/05/18 09:34 Coreg PO Not Given BID- CLAUDIA Cholecalciferol 5,000 units 12/05/18 09:00 12/05/18 08:42 Vitamin D3 PO 5,000 units DAILY CLAUDIA Administration Digoxin 0.125 mg 12/05/18 09:00 12/05/18 08:43 Lanoxin PO 0.125 mg DAILY CLAUDIA Administration Docusate Sodium 100 mg 12/05/18 09:00 12/05/18 08:43 Colace PO 100 mg DAILY CLAUDIA Administration Enoxaparin Sodium 40 mg 12/04/18 09:00 12/05/18 08:44 Lovenox SC 40 mg 09 CLAUDIA Administration Ferrous Sulfate 325 mg 12/05/18 08:00 12/05/18 08:43 Feosol PO 325 mg [facility] Administration Folic Acid 2 mg 12/04/18 21:00 12/05/18 08:42 Folvite PO 2 mg BID CLAUDIA Administration Gabapentin 600 mg 12/04/18 21:00 12/05/18 08:44 Neurontin PO 600 mg TID CLAUDIA Administration Prednisone 5 mg 12/05/18 08:00 12/05/18 08:44 Prednisone PO 5 mg QAM-[facility] CLAUDIA Administration Tamsulosin HCl 0.4 mg 12/04/18 21:00 12/04/18 21:14 Flomax PO 0.4 mg HS CLAUDIA Administration Temazepam 30 mg 12/04/18 21:00 12/04/18 21:13 Restoril PO 30 mg HS CLAUDIA Administration - Exam General Appearance: ill appearing General - other findings: sleepy, awakes to names, answers questions slowly Eye: PERRL, anicteric sclera ENT: normocephalic atraumatic, no oropharyngeal lesions Neck: supple, symmetric, no JVD, no thyromegaly, no lymphadenopathy Heart: no murmur, no gallops, no rubs, normal peripheral pulses, irregular Respiratory: no rales, no ronchi Respiratory - other findings: diminished in bases Gastrointestinal: soft, non-tender, non-distended, normal bowel sounds, no palpable masses Extremities: no edema Extremities - other findings: + ecchymosis on chest, upper extremities Skin: normal turgor Neurological: cranial nerve grossly intact, no new deficit Musculoskeletal: generalized weakness, diffuse muscle atrophy Psychiatric: oriented to person, oriented to place, lethargic Hosp A/P (1) Hypotension Status: Acute Plan: Likely multifactorial including volume depletion and iatrogenic, hold all BP meds, IVF bolus with NS x 1 L, check 2D echo, troponins/BNP, Cardiology consultation (2) Paroxysmal atrial fibrillation with RVR Code(s): I48.0 - Status: Chronic Plan: Rate variable, Continue Digoxin, check 2D Echo, Cardiology consultation (3) ERIKA (acute kidney injury) Code(s): N17.9 - Status: Acute Plan: Avoid nephrotoxic meds and limit contrast exposure, IVF's, serial creatinine (4) Falls frequently Code(s): R29.6 - Status: Acute Plan: Fall precautions, PT/OT evaluation, consider SNF options (5) COPD (chronic obstructive pulmonary disease) Status: Chronic Qualifiers: COPD type: emphysema Emphysema type: panlobular Qualified Code(s): J43.1 - Panlobular emphysema Plan: Chronic resp failure, continue low-flow O2 supplementation, general pulmonary support, no exacerbation currently (6) Demand ischemia Code(s): I24.8 - Status: Acute Plan: Demand state in context of hypotension and A-fib, no ACS - Plan PT/OT, social sciences chair, respiratory therapy, DVT proph w/SCDs Trendelenberg position IVF bolus with NS x 1L Hold all BP meds 2D echo pending Cardiology consultation CM for SNF options Check L shoulder X-rays PT/OT for functional assessment AM lab: CMP, CBC, Mg++, PO3, FT4 Total Critical care: 35min
[2018-12-05] MEDS ORDERED: Potassium Chloride 20 MEQ TAB PO SCH (10:45)
--- NOTE | 2018-12-05 11:50 | RAD ---
EXAM: XR Shoulder Lt 3 View STANDARD PROVIDED CLINICAL HISTORY: Pain FINDINGS: There is no evidence for fracture or other acute osseous abnormality. Alignment appears anatomic. Leonila nt spaces appear preserved. IMPRESSION: No evidence for an acute osseous abnormality. If there is persistent clinical concern, conservative m anagement and follow-up imaging advised.
[2018-12-05] MEDS ORDERED: Sodium Chloride 0.9% 1,000 ML IV SCH (12:15)
[2018-12-05] MEDS: Potassium Chloride 20 MEQ TAB PO SCH (17:46)
[2018-12-05] MEDS ORDERED: Potassium Chloride 10 MEQ TAB PO SCH (21:00)
[2018-12-05] MEDS: Atorvastatin Calcium 40 MG TAB PO SCH (21:55)
[2018-12-05] MEDS: Temazepam 15 MG CAP PO SCH (21:56)
[2018-12-05] MEDS: Tamsulosin HCl 0.4 MG CAP PO SCH (21:56)
[2018-12-06 05:58] LABS: Band 3 % (5-11); Eosinophils 1 % (0-10); Hemoglobin 9.7 g/dL (14.0-18.0); Lymphocytes 9 % (21-51); MDiff Complete? YES; Mean Corpuscular HGB CONC 32.4 g/dL (32.0-36.0); Mean Corpuscular Hemoglobin 33.6 pg (27.0-31.0); Mean Platelet Volume 9.3 fL (7.4-10.4); Monocytes 6 % (0-10); Neutrophil 81 % (42-75); Platelet Count 144 thou/uL (130-400); RBC Distribution Width 15.8 % (11.5-14.5); Red Blood Cell (RBC) Count 2.88 mill/uL (4.70-6.10); White Blood Cell (WBC) Count 9.6 thou/uL (4.8-10.8)
[2018-12-06 06:06] LABS: ALT (SGPT) 47 U/L (8-55); AST (SGOT) 41 U/L (5-34); Albumin 2.8 g/dL (3.4-4.8); Alkaline Phosphatase 80 U/L (40-110); Anion Gap 12 mmol/L (10-20); BUN (Urea Nitrogen) 27 mg/dL (8.4-25.7); Bilirubin, Total 0.7 mg/dL (0.2-1.2); Calc. Creatinine Clearance 19 mL/min (70-130); Calcium 7.8 mg/dL (7.8-10.44); Carbon Dioxide 23 mmol/L (23-31); Chloride 107 mmol/L (98-107); Estimated GFR-MDRD 23; Globulin 2.2 g/dL (2.4-3.5); Glucose 226 mg/dL (83-110); Magnesium 2.3 mg/dL (1.6-2.6); Potassium 3.5 mmol/L (3.5-5.1); Sodium 138 mmol/L (136-145)
--- NOTE | 2018-12-06 07:24 | CON ---
DATE OF CONSULTATION: REASON FOR CONSULTATION: Elevated troponin. HISTORY OF PRESENT ILLNESS: Mr. Cao is an 83-year-old gentleman, who recently was admitted for weakness. No other specific complaints. He was in atrial fibrillation, now sinus rhythm. He does have a history of paroxysmal atrial fibrillation in the past. The history is limited. The patient is a very poor historian. He has had frequent falls with significant ecchymosis present on his body. PAST MEDICAL HISTORY: COPD, paroxysmal atrial fibrillation, emphysema, CAD status post OR, hypertension, carotid endarterectomy, previous lung surgery, and appendectomy. HOME MEDICATIONS: Include: 1. Aspirin. 2. Gabapentin. 3. Tamsulosin. 4. Prednisone. 5. Ipratropium. 6. Temazepam. 7. Vitamin D3. 8. Tramadol. 9. Atorvastatin. 10. Folic acid. 11. Digoxin. 12. Carvedilol. 13. Advair. REVIEW OF SYSTEMS: A 10-point review of systems difficult to obtain. PHYSICAL EXAMINATION: GENERAL: Patient is a pleasant gentleman, who is in no acute distress. The patient appears their stated age. Poor historian. VITAL SIGNS: Blood pressure 104/58, pulse 73, and temperature 97.9. NEUROLOGIC: The patient is alert and oriented x3 with no focal neurologic deficits. HEENT: Sclerae without icterus. Mouth has moist mucous membranes with normal pallor. NECK: No JVD. Carotid upstroke brisk. No bruits bilaterally. LUNGS: Clear to auscultation with unlabored respirations. BACK: No scoliosis or kyphosis. CARDIAC: Regular rate and rhythm with normal S1 and S2. No S3 or S4 noted. No significant rubs, murmurs, thrills, or gallops noted throughout the precordium. PMI is not displaced. There is no parasternal heave. ABDOMEN: Soft, nontender, nondistended. No peritoneal signs present. No hepatosplenomegaly. No abnormal striae. EXTREMITIES: 2+ femoral and 2+ dorsalis pedis pulses. No cyanosis, clubbing, or edema. SKIN: No gross abnormalities. PERTINENT LABORATORY DATA: Hemoglobin 11.8. Creatinine 1.88 with a GFR of 34. Peak troponin 0.2. Total bilirubin 1.4. AST and ALT of 62/102 and alkaline phosphatase 124. IMPRESSION: 1. Elevated troponin. 2. Paroxysmal atrial fibrillation. 3. Weakness. 4. Chronic obstructive pulmonary disease. 5. Coronary artery disease. RECOMMENDATIONS: Elevated troponin, likely type 2 OR. He has had significant ecchymosis with frequent falls. He has had several bouts of hypotension during the day. He is likely volume contracted. His overall LVEF is estimated at 55% to 60%. At this point, we will continue with resuscitation with IV fluids. His blood pressure now appears more stable this afternoon. From a CV standpoint, we would recommend beta-shankar therapy if tolerated in addition to aspirin and statin therapy. We will also treat underlying hypothyroidism given a TSH is 6.0. Job ID: [id number]
[2018-12-06] MEDS: Budesonide 0.25 MG/2 ML NEB INH SCH ×2 (07:29→19:33)
--- NOTE | 2018-12-06 09:09 | PDOC.HOSPP ---
- Subjective Encounter Date: 12/06/18 Encounter Time: 09:00 Subjective: f/u for hypotension, COPD, dehydration and frequent falls. - Objective Vital Signs & Weight: Vital Signs (12 hours) Temp Pulse Resp BP Pulse Ox 12/06/18 07:29 66 16 99 12/06/18 07:27 66 16 99 12/06/18 03:37 98.0 F 64 18 116/58 L 97 12/06/18 02:11 94 L 12/06/18 00:37 59 L 16 104/55 L Weight Admit Weight 145 lb 7 oz Weight 145 lb 7 oz I&O: 12/05/18 12/06/18 12/07/18 06:59 06:59 06:59 Intake Total 2480 Output Total 585 Balance 1895 Result Diagrams: 12/06/18 05:19 12/06/18 05:19 Additional Labs: Accuchecks 12/05/18 10:12 POC Glucose 81 Laboratory Tests 01/16/17 01/16/17 01/17/17 18:28 18:28 03:44 WBC 32.9 H Hgb 12.4 L Hct Creatinine 0.95 1.46 H Total Bilirubin AST ALT Alkaline Phosphatase Troponin I Free T4 TSH 3rd Generation Digoxin 01/17/17 01/18/17 01/18/17 03:44 04:53 04:53 WBC 18.2 H 20.7 H Hgb 10.6 L 8.6 L Hct Creatinine 1.47 H Total Bilirubin AST ALT Alkaline Phosphatase Troponin I Free T4 TSH 3rd Generation Digoxin 01/19/17 01/19/17 03/15/17 04:22 04:22 02:15 WBC 19.7 H Hgb 7.1 L Hct Creatinine 1.66 H 0.99 Total Bilirubin AST ALT Alkaline Phosphatase Troponin I Free T4 TSH 3rd Generation Digoxin 12/04/18 12/04/18 12/04/18 00:32 00:32 00:32 WBC Hgb 11.8 L Hct 36.0 L Creatinine 1.88 H Total Bilirubin 1.4 H AST 62 H ALT 102 H Alkaline Phosphatase 124 H Troponin I 0.223 H Free T4 TSH 3rd Generation Digoxin 12/04/18 12/04/18 12/04/18 00:32 03:34 06:31 WBC Hgb Hct Creatinine Total Bilirubin AST ALT Alkaline Phosphatase Troponin I 0.210 H 0.201 H Free T4 TSH 3rd Generation 6.0115 H Digoxin 12/04/18 12/06/18 06:31 05:19 WBC Hgb Hct Creatinine Total Bilirubin AST ALT Alkaline Phosphatase Troponin I Free T4 0.78 TSH 3rd Generation Digoxin Less than 0.15 L Radiology Reviewed by me: Yes (Echo - EF 55-60%, mod , decreased AV excursion) EKG Reviewed by me: Yes (Tele - Sinus bradycardia) Hospitalist ROS - Medication Medications: Active Medications Generic Name Dose Route Start Last Admin Trade Name Mirna PRN Reason Stop Dose Admin Albuterol/Ipratropium 3 ml 12/04/18 18:30 12/06/18 07:27 Duoneb NEB 3 ml TID-RT CLAUDIA Administration Aspirin 81 mg 12/05/18 09:00 12/05/18 08:42 Aspirin Chewable PO 81 mg DAILY LCAUDIA Administration Atorvastatin Calcium 40 mg 12/04/18 21:00 12/05/18 21:55 Lipitor PO 40 mg HS CLAUDIA Administration Budesonide 0.25 mg 12/04/18 18:30 12/06/18 07:29 Pulmicort Neb Solution INH 0.25 mg BID-RT CLAUDIA Administration Carvedilol 3.125 mg 12/04/18 17:00 12/05/18 16:58 Coreg PO Not Given BID-WM CLAUDIA Cholecalciferol 5,000 units 12/05/18 09:00 12/05/18 08:42 Vitamin D3 PO 5,000 units DAILY CLAUDIA Administration Digoxin 0.125 mg 12/05/18 09:00 12/05/18 08:43 Lanoxin PO 0.125 mg DAILY CLAUDIA Administration Docusate Sodium 100 mg 12/05/18 09:00 12/05/18 08:43 Colace PO 100 mg DAILY CLAUDIA Administration Enoxaparin Sodium 40 mg 12/04/18 09:00 12/05/18 08:44 Lovenox SC 40 mg 0900 CLAUDIA Administration Ferrous Sulfate 325 mg 12/05/18 08:00 12/05/18 08:43 Feosol PO 325 mg QAM-WM CLAUDIA Administration Folic Acid 2 mg 12/04/18 21:00 12/05/18 21:56 Folvite PO 2 mg BID CLAUDIA Administration Gabapentin 600 mg 12/04/18 21:00 12/05/18 21:56 Neurontin PO 600 mg TID CLAUDIA Administration Potassium Chloride 40 meq 12/05/18 17:00 12/05/18 17:46 K-Dur PO 40 meq BID-WM CLAUDIA Administration Prednisone 5 mg 12/05/18 08:00 12/05/18 08:44 Prednisone PO 5 mg QAM-WM CLAUDIA Administration Tamsulosin HCl 0.4 mg 12/04/18 21:00 12/05/18 21:56 Flomax PO 0.4 mg HS CLAUDIA Administration Temazepam 30 mg 12/04/18 21:00 12/05/18 21:56 Restoril PO 30 mg HS CLAUDIA Administration - Exam General Appearance: NAD, awake alert Eye: PERRL, anicteric sclera ENT: normocephalic atraumatic, no oropharyngeal lesions Neck: supple, symmetric, no JVD, no thyromegaly, no lymphadenopathy Heart: RRR, no gallops, no rubs, normal peripheral pulses Respiratory: CTAB, no wheezes, no rales, no ronchi, normal chest expansion Gastrointestinal: soft, non-tender, non-distended, normal bowel sounds, no palpable masses Extremities: no cyanosis, no edema Skin: normal turgor Skin - other findings: multiple contusions/ecchymosis on extremities/chest Neurological: cranial nerve grossly intact, no new deficit Musculoskeletal: normal tone, generalized weakness Psychiatric: normal affect, A&O x 3 Hosp A/P (1) Hypotension Status: Acute Plan: Improved with volume replacement, hold am Coreg, may need to decrease dose of Coreg for home (2) Paroxysmal atrial fibrillation with RVR Code(s): I48.0 - PAROXYSMAL ATRIAL FIBRILLATION Status: Chronic Plan: SR currently, continue Digoxin, telemetry monitoring, not a candidate for anticoagulation due to multiple falls (3) ERIKA (acute kidney injury) Code(s): N17.9 - ACUTE KIDNEY FAILURE, UNSPECIFIED Status: Acute Plan: Secondary to hypotension and volume depletion, avoid nephrotoxic meds and limit contrast, renal dose medications (4) Falls frequently Code(s): R29.6 - REPEATED FALLS Status: Acute Plan: PT/OT evaluation, SNF options (5) COPD (chronic obstructive pulmonary disease) Status: Chronic Qualifiers: COPD type: emphysema Emphysema type: panlobular Qualified Code(s): J43.1 - Panlobular emphysema Plan: Stable currently, continue pulmonary supportive care (6) Demand ischemia Code(s): I24.8 - OTHER FORMS OF ACUTE ISCHEMIC HEART DISEASE Status: Acute Plan: Likely NSTEMI Type II, continue ASA, low-dose Coreg, Statin - Plan PT/OT, social worker palliative care, out of bed/ambulate Stable currently IVF NS @ 50ml/h Hold Coreg this am Cardiology consultation appreciated CM for SNF options PT/OT for functional assessment AM lab: BMP, CBC
[2018-12-06] MEDS: Potassium Chloride 20 MEQ TAB PO SCH ×2 (09:17→18:01)
[2018-12-06] MEDS: Ferrous Sulfate 325 MG TAB PO SCH (09:17)
[2018-12-06] MEDS: Carvedilol 3.125 MG TAB PO SCH ×2 (09:17→16:38)
[2018-12-06] MEDS: predniSONE 5 MG TAB PO SCH (09:17)
[2018-12-06] MEDS: Digoxin 0.125 MG TAB PO SCH (09:18)
[2018-12-06] MEDS: Gabapentin 300 MG CAP PO SCH ×3 (09:18→21:02)
[2018-12-06] MEDS: Docusate 100 MG CAP PO SCH (09:18)
[2018-12-06] MEDS: Aspirin Chewable 81 MG TAB PO SCH (09:18)
[2018-12-06] MEDS: Folic Acid 1 MG TAB PO SCH ×2 (09:19→21:02)
[2018-12-06] MEDS: Enoxaparin Sodium 40 MG/0.4 ML SYRINGE SC SCH (09:19)
[2018-12-06] MEDS: Sodium Chloride 0.9% 1,000 ML IV SCH (10:39)
--- NOTE | 2018-12-06 16:34 | PDOC.CPN ---
- Subjective Date: 12/06/18 Time: 16:32 Interval history: Pt much more lucid today. 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 [facility] and sees pts in [place] - Objective Allergies/Adverse Reactions: Allergies Allergy/AdvReac Type Severity Reaction Status Date / Time No Known Drug Allergies Allergy Verified 12/04/18 16:04 Visit Medications: Current Medications Albuterol Sulfate (Ventolin) 3 mg NEB QIDPRN PRN PRN Reason: Wheezing Albuterol/Ipratropium (Duoneb) 3 ml NEB TID-RT [facility] Last Admin: 12/06/18 13:59 Dose: Not Given Aspirin (Aspirin Chewable) 81 mg PO DAILY [facility] Last Admin: 12/06/18 09:18 Dose: 81 mg Atorvastatin Calcium (Lipitor) 40 mg PO HS [facility] Last Admin: 12/05/18 21:55 Dose: 40 mg Budesonide (Pulmicort Neb Solution) 0.25 mg INH BID-RT [facility] Last Admin: 12/06/18 07:29 Dose: 0.25 mg Carvedilol (Coreg) 3.125 mg PO BID-WM [facility] Last Admin: 12/06/18 09:17 Dose: Not Given Cholecalciferol (Vitamin D3) 5,000 units PO DAILY [facility] Last Admin: 12/06/18 09:18 Dose: 5,000 units Digoxin (Lanoxin) 0.125 mg PO DAILY [facility] Last Admin: 12/06/18 09:18 Dose: 0.125 mg Docusate Sodium (Colace) 100 mg PO DAILY [facility] Last Admin: 12/06/18 09:18 Dose: 100 mg Enoxaparin Sodium (Lovenox) 40 mg SC 0900 [facility] Last Admin: 12/06/18 09:19 Dose: 40 mg Ferrous Sulfate (Feosol) 325 mg PO QAM-WM [facility] Last Admin: 12/06/18 09:17 Dose: 325 mg Folic Acid (Folvite) 2 mg PO BID [facility] Last Admin: 12/06/18 09:19 Dose: 2 mg Gabapentin (Neurontin) 600 mg PO TID [facility] Last Admin: 12/06/18 09:18 Dose: 600 mg Sodium Chloride (Normal Saline 0.9%) 1,000 mls @ 50 mls/hr IV .Q20H [facility] Last Admin: 12/06/18 10:39 Dose: 1,000 mls Potassium Chloride (K-Dur) 40 meq PO BID-[facility] Last Admin: 12/06/18 09:17 Dose: 40 meq Prednisone (Prednisone) 5 mg PO QAM-[facility] Last Admin: 12/06/18 09:17 Dose: 5 mg Senna/Docusate Sodium (Senokot S) 2 tab PO BIDPRN PRN PRN Reason: Constipation Tamsulosin HCl (Flomax) 0.4 mg PO [facility] Last Admin: 12/05/18 21:56 Dose: 0.4 mg Temazepam (Restoril) 15 mg PO HSPRN PRN PRN Reason: Insomnia Temazepam (Restoril) 30 mg PO [facility] Last Admin: 12/05/18 21:56 Dose: 30 mg Tramadol HCl (Ultram) 50 mg PO BIDPRN PRN PRN Reason: Pain Vital Signs & Weight: Vital Signs Temp Pulse Pulse Pulse Pulse Resp BP 12/06/18 12:11 99.0 F 78 18 12/06/18 11:00 80 97 70 174/66 H 12/06/18 07:42 98.0 F 65 18 12/06/18 07:29 66 16 12/06/18 07:27 66 16 BP BP BP Pulse Ox 12/06/18 12:11 119/58 L 100 12/06/18 11:00 100/55 L 127/63 12/06/18 07:42 140/70 100 12/06/18 07:29 99 12/06/18 07:27 99 Admit Weight 145 lb 7 oz Weight 145 lb 7 oz - Physical Exam General: alert & oriented x3, other (dishevled) HEENT: mucus membranes moist Neck: supple neck, midline trachea Cardiac: regular rate Lungs: normal exam Abdomen: soft - Labs Result Diagrams: 12/06/18 05:19 12/06/18 05:19 Troponin/CKMB CK-MB (CK-2) 4.8 ng/mL (0-6.6) 12/04/18 00:32 Troponin I 0.201 ng/mL (< 0.028) H 12/04/18 06:31 - Assessment/Plan Assessment/Plan: Elevated troponin Weakness Acute on chronic renal insufficiency COPD Pt more lucid today Still in SR One episode of afib Add multaq Given frequent falls, I do not feel comfortable with custodial ACT Will defer to primary grinder brake lining in [place], Dr. Kennedy No other recommendations Will sign off
[2018-12-06] MEDS: Dronedarone HCl 400 MG TAB PO SCH (18:01)
--- NOTE | 2018-12-06 19:55 | EKG ---
Test Reason : CODE GREEN Blood Pressure : / mmHG Vent. Rate : 102 BPM Atrial Rate : 097 BPM P-R Int : 000 ms QRS Dur : 086 ms QT Int : 380 ms P-R-T Axes : 000 023 -03 degrees QTc Int : 495 ms Atrial fibrillation with rapid ventricular response Posterior infarct , age undetermined Abnormal ECG When compared with ECG of 04-DEC-2018 00:10, (Unconfirmed) Atrial fibrillation has replaced Sinus rhythm ST now depressed in Anterior leads Nonspecific T wave abnormality no longer evident in Inferior leads Nonspecific T wave abnormality, improved in Lateral leads QT has lengthened Confirmed by DANTE CARRINGTON, DR. Nelson ([id number]) on 12/06/2018 7:55:37 PM Referred By: DOMNIGO Confirmed By:DR. Omar HOWELL MD
[2018-12-06] MEDS: Temazepam 15 MG CAP PO SCH (21:02)
[2018-12-06] MEDS: Tamsulosin HCl 0.4 MG CAP PO SCH (21:02)
[2018-12-06] MEDS: Atorvastatin Calcium 40 MG TAB PO SCH (21:03)
[2018-12-06] MEDS: traMADol HCl 50 MG TAB PO PRN (21:06)
[2018-12-07] MEDS ORDERED: Lidocaine 2% Viscous Solution 10 ML, Aluminum & Magnesium Hydroxide 30 ML SSW SCH (03:00)
[2018-12-07 05:18] LABS: Anion Gap 8 mmol/L (10-20); BUN (Urea Nitrogen) 23 mg/dL (8.4-25.7); Calc. Creatinine Clearance 21 mL/min (70-130); Calcium 7.9 mg/dL (7.8-10.44); Carbon Dioxide 27 mmol/L (23-31); Chloride 110 mmol/L (98-107); Estimated GFR-MDRD 24; Glucose 98 mg/dL (83-110); Potassium 3.9 mmol/L (3.5-5.1); Sodium 141 mmol/L (136-145)
[2018-12-07 05:25] LABS: Band 8 % (5-11); Eosinophils 1 % (0-10); Hemoglobin 8.5 g/dL (14.0-18.0); Lymphocytes 19 % (21-51); MDiff Complete? YES; Mean Corpuscular HGB CONC 33.6 g/dL (32.0-36.0); Mean Corpuscular Hemoglobin 33.7 pg (27.0-31.0); Mean Platelet Volume 9.1 fL (7.4-10.4); Monocytes 2 % (0-10); Neutrophil 70 % (42-75); Platelet Count 139 thou/uL (130-400); RBC Distribution Width 15.6 % (11.5-14.5); Red Blood Cell (RBC) Count 2.53 mill/uL (4.70-6.10); White Blood Cell (WBC) Count 10.5 thou/uL (4.8-10.8)
[2018-12-07] MEDS: Sodium Chloride 0.9% 1,000 ML IV SCH (06:10)
[2018-12-07] MEDS: Budesonide 0.25 MG/2 ML NEB INH SCH ×2 (07:15→18:57)
[2018-12-07] MEDS: predniSONE 5 MG TAB PO SCH (08:15)
[2018-12-07] MEDS: Ferrous Sulfate 325 MG TAB PO SCH (08:15)
[2018-12-07] MEDS: Famotidine/PF 20 mg/2ml Vial SLOW IVP SCH (08:15)
[2018-12-07] MEDS: Enoxaparin Sodium 40 MG/0.4 ML SYRINGE SC SCH (08:15)
[2018-12-07] MEDS: Gabapentin 300 MG CAP PO SCH ×3 (08:15→21:33)
[2018-12-07] MEDS: Potassium Chloride 20 MEQ TAB PO SCH ×2 (08:16→17:33)
[2018-12-07] MEDS: Digoxin 0.125 MG TAB PO SCH (08:16)
[2018-12-07] MEDS: Aspirin Chewable 81 MG TAB PO SCH (08:17)
[2018-12-07] MEDS: Carvedilol 3.125 MG TAB PO SCH ×2 (08:17→17:32)
[2018-12-07] MEDS: Docusate 100 MG CAP PO SCH (08:18)
[2018-12-07] MEDS: Folic Acid 1 MG TAB PO SCH ×2 (08:18→21:33)
[2018-12-07] MEDS: Dronedarone HCl 400 MG TAB PO SCH ×2 (08:18→17:32)
[2018-12-07 14:01] VITALS: BMI 19.3
--- NOTE | 2018-12-07 19:01 | PDOC.HOSPP ---
- Subjective Encounter Date: 12/07/18 Encounter Time: 18:30 Subjective: f/u for hypotension, ERIKA, COPD and frequent falls. Feels ok overall. Some general fatigue. Tolerating po intake. - Objective Vital Signs & Weight: Vital Signs (12 hours) Temp Pulse Resp BP Pulse Ox 12/07/18 15:58 97.5 F L 80 20 125/60 92 L 12/07/18 13:25 51 L 16 99 12/07/18 11:29 96/52 L 12/07/18 11:20 98.1 F 62 24 H 87/51 L 97 12/07/18 08:20 98.2 F 78 24 H 115/58 L 97 12/07/18 07:15 68 16 100 12/07/18 07:13 68 16 100 Weight Admit Weight 145 lb 7 oz Weight 150 lb 14.4 oz I&O: 12/06/18 12/07/18 12/08/18 06:59 06:59 06:59 Intake Total 2480 1840 1550 Output Total 585 1500 Balance 2677 543 4552 Result Diagrams: 12/07/18 04:28 12/07/18 04:28 Additional Labs: Laboratory Tests 01/16/17 01/16/17 01/17/17 18:28 18:28 03:44 WBC 32.9 H Hgb 12.4 L Hct BUN Creatinine 0.95 1.46 H Total Bilirubin AST ALT Alkaline Phosphatase Troponin I Free T4 TSH 3rd Generation Digoxin 01/17/17 01/18/17 01/18/17 03:44 04:53 04:53 WBC 18.2 H 20.7 H Hgb 10.6 L 8.6 L Hct BUN Creatinine 1.47 H Total Bilirubin AST ALT Alkaline Phosphatase Troponin I Free T4 TSH 3rd Generation Digoxin 01/19/17 01/19/17 03/15/17 04:22 04:22 02:15 WBC 19.7 H Hgb 7.1 L Hct BUN Creatinine 1.66 H 0.99 Total Bilirubin AST ALT Alkaline Phosphatase Troponin I Free T4 TSH 3rd Generation Digoxin 12/04/18 12/04/18 12/04/18 00:32 00:32 00:32 WBC Hgb 11.8 L Hct 36.0 L BUN Creatinine 1.88 H Total Bilirubin 1.4 H AST 62 H ALT 102 H Alkaline Phosphatase 124 H Troponin I 0.223 H Free T4 TSH 3rd Generation Digoxin 12/04/18 12/04/18 12/04/18 00:32 03:34 06:31 WBC Hgb Hct BUN Creatinine Total Bilirubin AST ALT Alkaline Phosphatase Troponin I 0.210 H 0.201 H Free T4 TSH 3rd Generation 6.0115 H Digoxin 12/04/18 12/06/18 12/06/18 06:31 05:19 05:19 WBC Hgb Hct BUN 27 H Creatinine 2.68 H Total Bilirubin AST ALT Alkaline Phosphatase Troponin I Free T4 0.78 TSH 3rd Generation Digoxin Less than 0.15 L EKG Reviewed by me: Yes (Tele - SR) Hospitalist ROS - Medication Medications: Active Medications Generic Name Dose Route Start Last Admin Trade Name Freq PRN Reason Stop Dose Admin Albuterol/Ipratropium 3 ml 12/04/18 18:30 12/07/18 13:25 Duoneb NEB 3 ml TID-RT CLAUDIA Administration Aspirin 81 mg 12/05/18 09:00 12/07/18 08:17 Aspirin Chewable PO 81 mg DAILY CLAUDIA Administration Atorvastatin Calcium 40 mg 12/04/18 21:00 12/06/18 21:03 Lipitor PO 40 mg HS CLAUDIA Administration Budesonide 0.25 mg 12/04/18 18:30 12/07/18 07:15 Pulmicort Neb Solution INH 0.25 mg BID-RT CLAUDIA Administration Carvedilol 3.125 mg 12/04/18 17:00 12/07/18 17:32 Coreg PO 3.125 mg BID-WM CLAUDIA Administration Cholecalciferol 5,000 units 12/05/18 09:00 12/07/18 08:17 Vitamin D3 PO 5,000 units DAILY CLAUDIA Administration Digoxin 0.125 mg 12/05/18 09:00 12/07/18 08:16 Lanoxin PO 0.125 mg DAILY CLAUDIA Administration Docusate Sodium 100 mg 12/05/18 09:00 12/07/18 08:18 Colace PO 100 mg DAILY CLAUDIA Administration Dronedarone 400 mg 12/06/18 17:00 12/07/18 17:32 Multaq PO 400 mg BID-WM CLAUDIA Administration Enoxaparin Sodium 40 mg 12/04/18 09:00 12/07/18 08:15 Lovenox SC 40 mg 0900 CLAUDIA Administration Famotidine 20 mg 12/07/18 09:00 12/07/18 08:15 Pepcid SLOW IVP 20 mg DAILY CLAUDIA Administration Ferrous Sulfate 325 mg 12/05/18 08:00 12/07/18 08:15 Feosol PO 325 mg QAM-WM CLAUDIA Administration Folic Acid 2 mg 12/04/18 21:00 12/07/18 08:18 Folvite PO 2 mg BID CLAUDIA Administration Gabapentin 600 mg 12/04/18 21:00 12/07/18 15:56 Neurontin PO 600 mg TID CLAUDIA Administration Sodium Chloride 1,000 mls @ 50 mls/hr 12/06/18 09:45 12/07/18 06:10 Normal Saline 0.9% IV 1,000 mls .Q20H CLAUDIA Administration Potassium Chloride 40 meq 12/05/18 17:00 12/07/18 17:33 K-Dur PO 40 meq BID-WM CLAUDIA Administration Prednisone 5 mg 12/05/18 08:00 12/07/18 08:15 Prednisone PO 5 mg QAM-WM CLAUDIA Administration Tamsulosin HCl 0.4 mg 12/04/18 21:00 12/06/18 21:02 Flomax PO 0.4 mg HS CLAUDIA Administration Temazepam 30 mg 12/04/18 21:00 12/06/18 21:02 Restoril PO 30 mg HS CLAUDIA Administration Tramadol HCl 50 mg 12/04/18 16:30 12/06/18 21:06 Ultram PO 50 mg BIDPRN PRN Administration Pain - Exam General Appearance: NAD, awake alert Eye: PERRL, anicteric sclera ENT: normocephalic atraumatic, no oropharyngeal lesions Neck: supple, symmetric, no JVD, no thyromegaly, no lymphadenopathy Heart: RRR, no murmur, no gallops, no rubs, normal peripheral pulses Respiratory: CTAB, no wheezes, no rales, no ronchi Gastrointestinal: soft, non-tender, non-distended, normal bowel sounds Extremities: no cyanosis, no clubbing, no edema Extremities - other findings: multiple areas of ecchymosis on chest/UE's Skin: normal turgor Neurological: cranial nerve grossly intact, no new deficit Musculoskeletal: normal tone, generalized weakness Psychiatric: A&O x 3 Hosp A/P (1) Hypotension Status: Acute Plan: Likely due to dehydration in conjunction with BP meds, titrate BP regimen, continue low-volume IVF's (2) Paroxysmal atrial fibrillation with RVR Code(s): I48.0 - PAROXYSMAL ATRIAL FIBRILLATION Status: Chronic Plan: SR currently (3) ERIKA (acute kidney injury) Code(s): N17.9 - ACUTE KIDNEY FAILURE, UNSPECIFIED Status: Acute Plan: Mild improvement, continue low-volume IVF's, avoid nephrotoxic meds and limit contrast (4) Falls frequently Code(s): R29.6 - REPEATED FALLS Status: Acute Plan: PT/OT for ambulation, Rehab consult pending (5) COPD (chronic obstructive pulmonary disease) Status: Chronic Qualifiers: COPD type: emphysema Emphysema type: panlobular Qualified Code(s): J43.1 - Panlobular emphysema Plan: Stable, no exacerbation (6) Demand ischemia Code(s): I24.8 - OTHER FORMS OF ACUTE ISCHEMIC HEART DISEASE Status: Acute - Plan PT/OT, social services technician, DVT proph w/SCDs Stable currently IVF NS @ 50ml/h Decrease Coreg 1.5625mg BID Cardiology consultation appreciated Rehab pending PT/OT for functional assessment AM lab: BMP, CBC
[2018-12-07] MEDS: Atorvastatin Calcium 40 MG TAB PO SCH (21:33)
[2018-12-07] MEDS: Tamsulosin HCl 0.4 MG CAP PO SCH (21:34)
[2018-12-07] MEDS: Temazepam 15 MG CAP PO SCH (21:34)
[2018-12-08] MEDS: Sodium Chloride 0.9% 1,000 ML IV SCH (05:37)
[2018-12-08 06:15] LABS: Hemoglobin 8.2 g/dL (14.0-18.0); Hypochromia SLIGHT = 6-15 cells (100X) (0-5/hpf); Lymphocytes 20 % (21-51); MDiff Complete? YES; Macrocytosis SLIGHT = 6-15 cells (100X) (0-5/hpf); Mean Corpuscular HGB CONC 31.9 g/dL (32.0-36.0); Mean Corpuscular Hemoglobin 33.4 pg (27.0-31.0); Monocytes 5 % (0-10); Neutrophil 75 % (42-75); Platelet Count 135 thou/uL (130-400); Platelet Morphology Comment Appears Adequate; Polychromasia SLIGHT = 2-3 cells (100X) (0-2/hpf); RBC Distribution Width 15.4 % (11.5-14.5); Red Blood Cell (RBC) Count 2.44 mill/uL (4.70-6.10); White Blood Cell (WBC) Count 8.4 thou/uL (4.8-10.8)
[2018-12-08 06:23] LABS: Anion Gap 7 mmol/L (10-20); BUN (Urea Nitrogen) 25 mg/dL (8.4-25.7); Calc. Creatinine Clearance 20 mL/min (70-130); Calcium 8.1 mg/dL (7.8-10.44); Carbon Dioxide 27 mmol/L (23-31); Chloride 111 mmol/L (98-107); Estimated GFR-MDRD 22; Glucose 107 mg/dL (83-110); Potassium 5.3 mmol/L (3.5-5.1); Sodium 140 mmol/L (136-145)
[2018-12-08] MEDS: Budesonide 0.25 MG/2 ML NEB INH SCH ×2 (07:51→18:05)
[2018-12-08] MEDS: Carvedilol 3.125 MG TAB PO SCH ×2 (08:56→17:00)
[2018-12-08] MEDS: Docusate 100 MG CAP PO SCH (08:57)
[2018-12-08] MEDS: Digoxin 0.125 MG TAB PO SCH (08:57)
[2018-12-08] MEDS: Aspirin Chewable 81 MG TAB PO SCH (08:57)
[2018-12-08] MEDS: Ferrous Sulfate 325 MG TAB PO SCH (08:57)
[2018-12-08] MEDS: Dronedarone HCl 400 MG TAB PO SCH ×2 (08:57→17:00)
[2018-12-08] MEDS: Potassium Chloride 20 MEQ TAB PO SCH (08:57)
[2018-12-08] MEDS: predniSONE 5 MG TAB PO SCH (08:57)
[2018-12-08] MEDS: Enoxaparin Sodium 40 MG/0.4 ML SYRINGE SC SCH (08:58)
[2018-12-08] MEDS: Gabapentin 300 MG CAP PO SCH ×3 (08:58→20:57)
[2018-12-08] MEDS: Folic Acid 1 MG TAB PO SCH ×2 (08:58→20:57)
[2018-12-08] MEDS: Famotidine/PF 20 mg/2ml Vial SLOW IVP SCH (08:58)
[2018-12-08] MEDS ORDERED: Enoxaparin Sodium 40 MG/0.4 ML SYRINGE SC SCH (09:16)
[2018-12-08] MEDS: Enoxaparin Sodium 30 MG/0.3 ML SYRINGE SC SCH (09:34)
--- NOTE | 2018-12-08 11:37 | PDOC.HOSPP ---
- Subjective Encounter Date: 12/08/18 Encounter Time: 11:35 Subjective: 83 y/o male with multiple comobidities admitted with worsening weakness associated with falls. Feeling better but still weak. Oral intake is improving. No fever or chest pain. - Objective Vital Signs & Weight: Vital Signs (12 hours) Temp Pulse Resp BP Pulse Ox 12/08/18 08:57 60 12/08/18 08:23 100 12/08/18 07:51 60 18 12/08/18 07:48 97.6 F 60 20 126/60 100 12/08/18 04:00 97.5 F L 59 L 22 H 115/57 L 99 12/08/18 03:59 99 Weight Admit Weight 145 lb 7 oz Weight 150 lb 14.4 oz I&O: 12/07/18 12/08/18 12/09/18 06:59 06:59 06:59 Intake Total 1840 2200 Output Total 1500 350 Balance 340 1850 Result Diagrams: 12/08/18 05:28 12/08/18 05:28 Hospitalist ROS - Medication Medications: Active Medications Generic Name Dose Route Start Last Admin Trade Name Freq PRN Reason Stop Dose Admin Albuterol Sulfate 3 mg 12/04/18 16:30 12/07/18 21:49 Ventolin NEB 3 mg QIDPRN PRN Administration Wheezing Albuterol/Ipratropium 3 ml 12/04/18 18:30 12/08/18 07:51 Duoneb NEB 3 ml TID-RT CLAUDIA Administration Aspirin 81 mg 12/05/18 09:00 12/08/18 08:57 Aspirin Chewable PO 81 mg DAILY CLAUDIA Administration Atorvastatin Calcium 40 mg 12/04/18 21:00 12/07/18 21:33 Lipitor PO 40 mg HS CLAUDIA Administration Budesonide 0.25 mg 12/04/18 18:30 12/08/18 07:51 Pulmicort Neb Solution INH 0.25 mg BID-RT CLAUDIA Administration Carvedilol 1.5625 mg 12/08/18 08:00 12/08/18 08:56 Coreg PO 1.5625 mg BID-WM CLAUDIA Administration Cholecalciferol 5,000 units 12/05/18 09:00 12/08/18 08:57 Vitamin D3 PO 5,000 units DAILY CLAUDIA Administration Digoxin 0.125 mg 12/05/18 09:00 12/08/18 08:57 Lanoxin PO 0.125 mg DAILY CLAUDIA Administration Docusate Sodium 100 mg 12/05/18 09:00 12/08/18 08:57 Colace PO 100 mg DAILY CLAUDIA Administration Dronedarone 400 mg 12/06/18 17:00 12/08/18 08:57 Multaq PO 400 mg BID-WM CLAUDIA Administration Enoxaparin Sodium 30 mg 12/08/18 09:00 12/08/18 09:34 Lovenox SC Not Given [address] [facility] Famotidine 20 mg 12/07/18 09:00 12/08/18 08:58 Pepcid SLOW IVP 20 mg DAILY CLAUDIA Administration Ferrous Sulfate 325 mg 12/05/18 08:00 12/08/18 08:57 Feosol PO 325 mg QAM-WM CLAUDIA Administration Folic Acid 2 mg 12/04/18 21:00 12/08/18 08:58 Folvite PO 2 mg BID CLAUDIA Administration Gabapentin 600 mg 12/04/18 21:00 12/08/18 08:58 Neurontin PO 600 mg TID CLAUDIA Administration Prednisone 5 mg 12/05/18 08:00 12/08/18 08:57 Prednisone PO 5 mg QAM-WM CLAUDIA Administration Tamsulosin HCl 0.4 mg 12/04/18 21:00 12/07/18 21:34 Flomax PO 0.4 mg HS CLAUDIA Administration Temazepam 30 mg 12/04/18 21:00 12/07/18 21:34 Restoril PO 30 mg HS CLAUDIA Administration Tramadol HCl 50 mg 12/04/18 16:30 12/06/18 21:06 Ultram PO 50 mg BIDPRN PRN Administration Pain - Exam General Appearance: awake alert Eye: anicteric sclera ENT: normocephalic atraumatic, moist mucosa Neck: supple, no JVD Heart: RRR Respiratory - other findings: fair air entrty bilaterally with few bibasal crackles Gastrointestinal: soft, non-tender, non-distended, normal bowel sounds Extremities - other findings: trace leg edema Skin - other findings: scattered ecchymosis and bruise at various stages Neurological: cranial nerve grossly intact Musculoskeletal: generalized weakness, diffuse muscle atrophy Psychiatric: normal affect, A&O x 3 Hosp A/P (1) ERIKA (acute kidney injury) Code(s): N17.9 - ACUTE KIDNEY FAILURE, UNSPECIFIED Status: Acute (2) Hyperkalemia Code(s): E87.5 - HYPERKALEMIA Status: Acute (3) Falls frequently Code(s): R29.6 - REPEATED FALLS Status: Acute (4) Hypotension Status: Acute (5) Demand ischemia Code(s): I24.8 - OTHER FORMS OF ACUTE ISCHEMIC HEART DISEASE Status: Acute (6) Macrocytic anemia Code(s): D53.9 - NUTRITIONAL ANEMIA, UNSPECIFIED Status: Acute (7) CAD (coronary artery disease) Code(s): I25.10 - ATHSCL HEART DISEASE OF [place] CORONARY ARTERY W/O ANG PCTRS Status: Chronic Qualifiers: Coronary Disease-Associated Artery/Lesion type: [place] artery [place] vs. transplanted heart: [place] heart Associated angina: without angina Qualified Code(s): I25.10 - Atherosclerotic heart disease of [place] coronary artery without angina pectoris (8) COPD (chronic obstructive pulmonary disease) Status: Chronic Qualifiers: COPD type: emphysema Emphysema type: panlobular Qualified Code(s): J43.1 - Panlobular emphysema (9) HTN (hypertension) Code(s): I10 - ESSENTIAL (PRIMARY) HYPERTENSION Status: Chronic Qualifiers: Hypertension type: essential hypertension Qualified Code(s): I10 - Essential (primary) hypertension (10) Paroxysmal atrial fibrillation with RVR Code(s): I48.0 - PAROXYSMAL ATRIAL FIBRILLATION Status: Chronic (11) Physical deconditioning Code(s): R53.81 - OTHER [place] Status: Acute - Plan DC IVF. Give albumin given hypoalbuminemia Stop oral potassium supplementation Get urine electrolyte Wean oxygen as tolerated. PT/Ot to continue. Get renal US. Get anemia chemistry. Repeat BMp and CBC in the am.
[2018-12-08] MEDS: Albumin 25% 25 GM/100 ML BOT IVPB SCH ×2 (12:21→17:00)
[2018-12-08 14:57] LABS: Creatinine, Urine 29.94 mg/dL (63-166)
[2018-12-08] MEDS: Atorvastatin Calcium 40 MG TAB PO SCH (20:57)
[2018-12-08] MEDS: Tamsulosin HCl 0.4 MG CAP PO SCH (20:57)
[2018-12-08] MEDS: Temazepam 15 MG CAP PO SCH (20:58)
[2018-12-09] MEDS: Albumin 25% 25 GM/100 ML BOT IVPB SCH (00:04)
[2018-12-09] MEDS: Dronedarone HCl 400 MG TAB PO SCH ×2 (07:49→17:21)
[2018-12-09] MEDS: Enoxaparin Sodium 30 MG/0.3 ML SYRINGE SC SCH (07:49)
[2018-12-09] MEDS: Gabapentin 300 MG CAP PO SCH ×3 (07:50→22:51)
[2018-12-09] MEDS: Aspirin Chewable 81 MG TAB PO SCH (07:50)
[2018-12-09] MEDS: Docusate 100 MG CAP PO SCH (07:51)
[2018-12-09] MEDS: Carvedilol 3.125 MG TAB PO SCH ×2 (07:51→17:20)
[2018-12-09] MEDS: Ferrous Sulfate 325 MG TAB PO SCH (07:51)
[2018-12-09] MEDS: Folic Acid 1 MG TAB PO SCH ×2 (07:51→22:51)
[2018-12-09] MEDS: predniSONE 5 MG TAB PO SCH (07:52)
[2018-12-09] MEDS: Famotidine/PF 20 mg/2ml Vial SLOW IVP SCH (07:52)
[2018-12-09] MEDS: Digoxin 0.125 MG TAB PO SCH (07:52)
[2018-12-09] MEDS: Budesonide 0.25 MG/2 ML NEB INH SCH ×2 (08:40→19:14)
--- NOTE | 2018-12-09 10:48 | EKG ---
Test Reason : Blood Pressure : / mmHG Vent. Rate : 070 BPM Atrial Rate : 070 BPM P-R Int : 158 ms QRS Dur : 078 ms QT Int : 318 ms P-R-T Axes : 064 024 002 degrees QTc Int : 343 ms Normal sinus rhythm Nonspecific T wave abnormality Abnormal ECG Confirmed by SHANICE CARRINGTON, DOTTIE Reyes ([id number]), multimedia editor JANNETTE HENDRICKSON ([id number]) on 12/09/2018 10:47:59 AM Referred By: Confirmed By:DOTTIE PRASAD MD
[2018-12-09 10:51] LABS: #Eosinphils 0.1 thou/uL (0.0-0.7); #Lymphocytes 1.6 thou/uL (1.20-3.40); #Monocytes 0.7 thou/uL (0.11-0.59); #Neutrophils 5.7 thou/uL (1.40-6.50); %Basophils 0.3 % (0.0-1.0); %Eosinophils 1.8 % (0.0-10.0); %Lymphocytes 19.4 % (21.0-51.0); %Monocytes 8.6 % (0.0-10.0); %Neutrophils 69.9 % (42.0-75.0); Hemoglobin 7.7 g/dL (14.0-18.0); Mean Corpuscular HGB CONC 32.8 g/dL (32.0-36.0); Mean Corpuscular Hemoglobin 33.8 pg (27.0-31.0); Mean Platelet Volume 8.9 fL (7.4-10.4); Platelet Count 138 thou/uL (130-400); RBC Distribution Width 15.5 % (11.5-14.5); Red Blood Cell (RBC) Count 2.27 mill/uL (4.70-6.10); White Blood Cell (WBC) Count 8.2 thou/uL (4.8-10.8)
[2018-12-09 11:12] LABS: Albumin 3.2 g/dL (3.4-4.8); Anion Gap 7 mmol/L (10-20); BUN (Urea Nitrogen) 22 mg/dL (8.4-25.7); Calc. Creatinine Clearance 22 mL/min (70-130); Calcium 8.5 mg/dL (7.8-10.44); Carbon Dioxide 27 mmol/L (23-31); Chloride 111 mmol/L (98-107); Estimated GFR-MDRD 25; Glucose 93 mg/dL (83-110); Iron 103 ug/dL (65-175); Iron Binding Capacity, Total 166 mcg/dL (261-462); Phosphorus 3.2 mg/dL (2.3-4.7); Potassium 5.2 mmol/L (3.5-5.1); Sodium 140 mmol/L (136-145)
[2018-12-09 11:35] LABS: Ferritin 825.09 ng/mL (22-322)
--- NOTE | 2018-12-09 12:04 | PDOC.HOSPP ---
- Subjective Encounter Date: 12/09/18 Encounter Time: 12:03 Subjective: 83 y/o male with multiple comobidities admitted with worsening weakness associated with falls. Feeling better but still weak. Oral intake is improving. No fever or chest pain. No new problem. Ambulating with PT - Objective Vital Signs & Weight: Vital Signs (12 hours) Temp Pulse Resp BP Pulse Ox 12/09/18 08:41 100 12/09/18 08:40 64 16 12/09/18 07:35 97.6 F 65 22 H 132/63 95 12/09/18 03:29 98 F 59 L 15 122/55 L 100 Weight Admit Weight 145 lb 7 oz Weight 150 lb 14.4 oz I&O: 12/08/18 12/09/18 12/10/18 06:59 06:59 06:59 Intake Total 2200 150 Output Total 350 500 Balance 1850 -350 Result Diagrams: 12/09/18 10:33 12/09/18 10:33 Hospitalist ROS - Medication Medications: Active Medications Generic Name Dose Route Start Last Admin Trade Name Freq PRN Reason Stop Dose Admin Albuterol Sulfate 3 mg 12/04/18 16:30 12/07/18 21:49 Ventolin NEB 3 mg QIDPRN PRN Administration Wheezing Aspirin 81 mg 12/05/18 09:00 12/09/18 07:50 Aspirin Chewable PO 81 mg DAILY CLAUDIA Administration Atorvastatin Calcium 40 mg 12/04/18 21:00 12/08/18 20:57 Lipitor PO 40 mg HS CLAUDIA Administration Carvedilol 1.5625 mg 12/08/18 08:00 12/09/18 07:51 Coreg PO 1.5625 mg BID-WM CLAUDIA Administration Cholecalciferol 5,000 units 12/05/18 09:00 12/09/18 07:51 Vitamin D3 PO 5,000 units DAILY CLAUDIA Administration Digoxin 0.125 mg 12/05/18 09:00 12/09/18 07:52 Lanoxin PO 0.125 mg DAILY CLAUDIA Administration Docusate Sodium 100 mg 12/05/18 09:00 12/09/18 07:51 Colace PO 100 mg DAILY CLAUDIA Administration Dronedarone 400 mg 12/06/18 17:00 12/09/18 07:49 Multaq PO 400 mg BID-WM CLAUDIA Administration Enoxaparin Sodium 30 mg 12/08/18 09:00 12/09/18 07:49 Lovenox SC 30 mg 0900 CLAUDIA Administration Famotidine 20 mg 12/07/18 09:00 12/09/18 07:52 Pepcid SLOW IVP 20 mg DAILY CLAUDIA Administration Ferrous Sulfate 325 mg 12/05/18 08:00 12/09/18 07:51 Feosol PO 325 mg QAM-WM CLAUDIA Administration Folic Acid 2 mg 12/04/18 21:00 12/09/18 07:51 Folvite PO 2 mg BID CLAUDIA Administration Gabapentin 600 mg 12/04/18 21:00 12/09/18 07:50 Neurontin PO 600 mg TID CLAUDIA Administration Prednisone 5 mg 12/05/18 08:00 12/09/18 07:52 Prednisone PO 5 mg QAM-WM CLAUDIA Administration Sodium Chloride 10 ml 12/08/18 21:00 12/09/18 07:53 Flush - Normal Saline IVF 10 ml Q12HR CLAUDIA Administration Tamsulosin HCl 0.4 mg 12/04/18 21:00 12/08/18 20:57 Flomax PO 0.4 mg HS CLAUDIA Administration Temazepam 30 mg 12/04/18 21:00 12/08/18 20:58 Restoril PO 30 mg HS CLAUDIA Administration Tramadol HCl 50 mg 12/04/18 16:30 12/06/18 21:06 Ultram PO 50 mg BIDPRN PRN Administration Pain - Exam General Appearance: awake alert Eye: anicteric sclera ENT: normocephalic atraumatic Neck: symmetric, no JVD Heart: RRR Respiratory: normal chest expansion, rhonchi, wheezes Gastrointestinal: soft, non-tender, non-distended, normal bowel sounds Extremities: no edema Skin - other findings: scattered ecchymosis at vorious stages Neurological: cranial nerve grossly intact, no focal deficits Psychiatric: normal affect, A&O x 3 Hosp A/P (1) ERIKA (acute kidney injury) Code(s): N17.9 - ACUTE KIDNEY FAILURE, UNSPECIFIED Status: Acute (2) Hyperkalemia Code(s): E87.5 - HYPERKALEMIA Status: Acute (3) Falls frequently Code(s): R29.6 - REPEATED FALLS Status: Acute (4) Hypotension Status: Acute (5) Demand ischemia Code(s): I24.8 - OTHER FORMS OF ACUTE ISCHEMIC HEART DISEASE Status: Acute (6) Macrocytic anemia Code(s): D53.9 - NUTRITIONAL ANEMIA, UNSPECIFIED Status: Acute (7) CAD (coronary artery disease) Code(s): I25.10 - ATHSCL HEART DISEASE OF [place] CORONARY ARTERY W/O ANG PCTRS Status: Chronic Qualifiers: Coronary Disease-Associated Artery/Lesion type: [place] artery [place] vs. transplanted heart: [place] heart Associated angina: without angina Qualified Code(s): I25.10 - Atherosclerotic heart disease of [place] coronary artery without angina pectoris (8) COPD (chronic obstructive pulmonary disease) Status: Chronic Qualifiers: COPD type: emphysema Emphysema type: panlobular Qualified Code(s): J43.1 - Panlobular emphysema (9) HTN (hypertension) Code(s): I10 - ESSENTIAL (PRIMARY) HYPERTENSION Status: Chronic Qualifiers: Hypertension type: essential hypertension Qualified Code(s): I10 - Essential (primary) hypertension (10) Paroxysmal atrial fibrillation with RVR Code(s): I48.0 - PAROXYSMAL ATRIAL FIBRILLATION Status: Chronic (11) Physical deconditioning Code(s): R53.81 - OTHER MALAISE Status: Acute - Plan DC fluid as FENa and Fe urea is not suggestive of prerenal. ? ATN from prolonged hypoperfusion Wean oxygen as tolerated. PT/Ot to continue. Awaiting renal US. Repeat BMp and CBC in the am.
--- NOTE | 2018-12-09 19:01 | ULT ---
RENAL ULTRASOUND: 12/09/18 HISTORY: Acute kidney insufficiency. Both kidneys show cortical thinning and mild increased cortical echogenicity. Right kidney measures 1 0.4 cm in length. Left kidney measures 11.0. There is a left renal cyst measuring 5 cm. Bladder is mildly distended. The prevoid bladder volume is recorded at 42 mL. There is evidence of pr ostatic hypertrophy. IMPRESSION: Cortical thinning and mild increased cortical echogenicity. Large left renal cyst. POS: OFF
[2018-12-09] MEDS: Atorvastatin Calcium 40 MG TAB PO SCH (22:51)
[2018-12-09] MEDS: Tamsulosin HCl 0.4 MG CAP PO SCH (22:51)
[2018-12-09] MEDS: Temazepam 15 MG CAP PO SCH (22:52)
[2018-12-10 05:48] LABS: #Eosinphils 0.2 thou/uL (0.0-0.7); #Lymphocytes 1.4 thou/uL (1.20-3.40); #Monocytes 0.8 thou/uL (0.11-0.59); #Neutrophils 6.4 thou/uL (1.40-6.50); %Basophils 0.3 % (0.0-1.0); %Eosinophils 2.4 % (0.0-10.0); %Lymphocytes 15.7 % (21.0-51.0); %Monocytes 8.6 % (0.0-10.0); %Neutrophils 73.1 % (42.0-75.0); Hemoglobin 8.2 g/dL (14.0-18.0); Mean Corpuscular HGB CONC 30.6 g/dL (32.0-36.0); Mean Corpuscular Hemoglobin 32.7 pg (27.0-31.0); Mean Platelet Volume 9.8 fL (7.4-10.4); Platelet Count 104 thou/uL (130-400); RBC Distribution Width 15.6 % (11.5-14.5); Red Blood Cell (RBC) Count 2.49 mill/uL (4.70-6.10); White Blood Cell (WBC) Count 8.7 thou/uL (4.8-10.8)
[2018-12-10 06:02] LABS: Albumin 3.2 g/dL (3.4-4.8); Anion Gap 9 mmol/L (10-20); BUN (Urea Nitrogen) 24 mg/dL (8.4-25.7); Calc. Creatinine Clearance 22 mL/min (70-130); Calcium 8.4 mg/dL (7.8-10.44); Carbon Dioxide 27 mmol/L (23-31); Chloride 109 mmol/L (98-107); Estimated GFR-MDRD 25; Glucose 123 mg/dL (83-110); Phosphorus 3.3 mg/dL (2.3-4.7); Potassium 5.3 mmol/L (3.5-5.1); Sodium 140 mmol/L (136-145)
[2018-12-10] MEDS: Dronedarone HCl 400 MG TAB PO SCH ×2 (07:15→18:06)
[2018-12-10] MEDS: Carvedilol 3.125 MG TAB PO SCH ×2 (07:15→18:06)
[2018-12-10] MEDS: predniSONE 5 MG TAB PO SCH (07:16)
[2018-12-10] MEDS: Ferrous Sulfate 325 MG TAB PO SCH (07:16)
[2018-12-10] MEDS: Budesonide 0.25 MG/2 ML NEB INH SCH ×2 (09:00→19:18)
[2018-12-10] MEDS: Digoxin 0.125 MG TAB PO SCH (10:10)
[2018-12-10] MEDS: Aspirin Chewable 81 MG TAB PO SCH (10:10)
[2018-12-10] MEDS: Famotidine/PF 20 mg/2ml Vial SLOW IVP SCH (10:11)
[2018-12-10] MEDS: Enoxaparin Sodium 30 MG/0.3 ML SYRINGE SC SCH (10:11)
[2018-12-10] MEDS: Docusate 100 MG CAP PO SCH (10:11)
[2018-12-10] MEDS: Gabapentin 300 MG CAP PO SCH (10:12)
[2018-12-10] MEDS: Folic Acid 1 MG TAB PO SCH ×2 (10:12→19:50)
[2018-12-10] MEDS ORDERED: predniSONE 20 MG TAB PO SCH (10:30)
--- NOTE | 2018-12-10 12:23 | PDOC.HOSPP ---
- Subjective Encounter Date: 12/10/18 Encounter Time: 12:21 Subjective: 83 y/o male with multiple comobidities admitted with worsening weakness associated with falls. Feeling better but still weak. Oral intake is improving. No fever or chest pain. No new problem. Ambulating with PT - Objective Vital Signs & Weight: Vital Signs (12 hours) Temp Pulse Resp BP Pulse Ox 12/10/18 09:00 64 16 12/10/18 07:20 97.7 F 63 20 135/64 97 12/10/18 03:20 97.9 F 65 20 145/64 H 100 Weight Admit Weight 145 lb 7 oz Weight 150 lb 14.4 oz I&O: 12/09/18 12/10/18 12/11/18 06:59 06:59 06:59 Intake Total 150 1470 Output Total 500 1400 Balance -350 70 Result Diagrams: 12/10/18 05:34 12/10/18 05:34 Hospitalist ROS - Medication Medications: Active Medications Generic Name Dose Route Start Last Admin Trade Name Freq PRN Reason Stop Dose Admin Albuterol Sulfate 3 mg 12/04/18 16:30 12/07/18 21:49 Ventolin NEB 3 mg QIDPRN PRN Administration Wheezing Albuterol/Ipratropium 3 ml 12/09/18 15:00 12/10/18 11:06 Duoneb NEB Not Given QID-RT CLAUDIA Aspirin 81 mg 12/05/18 09:00 12/10/18 10:10 Aspirin Chewable PO 81 mg DAILY CLAUDIA Administration Atorvastatin Calcium 40 mg 12/04/18 21:00 12/09/18 22:51 Lipitor PO 40 mg HS CLAUDIA Administration Budesonide 0.5 mg 12/09/18 12:02 12/10/18 09:00 Pulmicort Neb Solution INH 0.5 mg BID-RT CLAUDIA Administration Carvedilol 1.5625 mg 12/08/18 08:00 12/10/18 07:15 Coreg PO 1.5625 mg BID-WM CLAUDIA Administration Cholecalciferol 5,000 units 12/05/18 09:00 12/10/18 10:10 Vitamin D3 PO 5,000 units DAILY CLAUDIA Administration Digoxin 0.125 mg 12/05/18 09:00 12/10/18 10:10 Lanoxin PO 0.125 mg DAILY CLAUDIA Administration Docusate Sodium 100 mg 12/05/18 09:00 12/10/18 10:11 Colace PO 100 mg DAILY CLAUDIA Administration Dronedarone 400 mg 12/06/18 17:00 12/10/18 07:15 Multaq PO 400 mg BID-WM CLAUDIA Administration Enoxaparin Sodium 30 mg 12/08/18 09:00 12/10/18 10:11 Lovenox SC 30 mg 0900 CLAUDIA Administration Famotidine 20 mg 12/07/18 09:00 12/10/18 10:11 Pepcid SLOW IVP 20 mg DAILY CLAUDIA Administration Ferrous Sulfate 325 mg 12/05/18 08:00 12/10/18 07:16 Feosol PO 325 mg QAM-WM CLAUDIA Administration Folic Acid 2 mg 12/04/18 21:00 12/10/18 10:12 Folvite PO 2 mg BID CLAUDIA Administration Gabapentin 600 mg 12/10/18 09:00 12/10/18 10:12 Neurontin PO 600 mg DAILY CLAUDIA Administration Sodium Chloride 10 ml 12/08/18 21:00 12/10/18 10:12 Flush - Normal Saline IVF 10 ml Q12HR CLAUDIA Administration Tamsulosin HCl 0.4 mg 12/04/18 21:00 12/09/18 22:51 Flomax PO 0.4 mg HS CLAUDIA Administration Temazepam 30 mg 12/04/18 21:00 12/09/18 22:52 Restoril PO 30 mg HS CLAUDIA Administration Tramadol HCl 50 mg 12/04/18 16:30 12/06/18 21:06 Ultram PO 50 mg BIDPRN PRN Administration Pain - Exam General Appearance: awake alert Eye: anicteric sclera ENT: normocephalic atraumatic Neck: symmetric, no JVD Heart: RRR Respiratory: no tachypnea Respiratory - other findings: fair air entry bilaterally with scattered rhonchi Gastrointestinal: soft, non-tender, non-distended, normal bowel sounds Extremities: no edema Extremities - other findings: scattered ecchymosis and bruises at various statges of resolution Neurological: cranial nerve grossly intact, no focal deficits Neurological - other findings: memory lpases noted Psychiatric: A&O x 3 Hosp A/P (1) ERIKA (acute kidney injury) Code(s): N17.9 - ACUTE KIDNEY FAILURE, UNSPECIFIED Status: Acute (2) Hyperkalemia Code(s): E87.5 - HYPERKALEMIA Status: Acute (3) Falls frequently Code(s): R29.6 - REPEATED FALLS Status: Acute (4) Hypotension Status: Acute (5) Demand ischemia Code(s): I24.8 - OTHER FORMS OF ACUTE ISCHEMIC HEART DISEASE Status: Acute (6) Macrocytic anemia Code(s): D53.9 - NUTRITIONAL ANEMIA, UNSPECIFIED Status: Acute (7) CAD (coronary artery disease) Code(s): I25.10 - ATHSCL HEART DISEASE OF [place] CORONARY ARTERY W/O ANG PCTRS Status: Chronic Qualifiers: Coronary Disease-Associated Artery/Lesion type: [place] artery [place] vs. transplanted heart: [place] heart Associated angina: without angina Qualified Code(s): I25.10 - Atherosclerotic heart disease of [place] coronary artery without angina pectoris (8) COPD (chronic obstructive pulmonary disease) Status: Chronic Qualifiers: COPD type: emphysema Emphysema type: panlobular Qualified Code(s): J43.1 - Panlobular emphysema (9) HTN (hypertension) Code(s): I10 - ESSENTIAL (PRIMARY) HYPERTENSION Status: Chronic Qualifiers: Hypertension type: essential hypertension Qualified Code(s): I10 - Essential (primary) hypertension (10) Paroxysmal atrial fibrillation with RVR Code(s): I48.0 - PAROXYSMAL ATRIAL FIBRILLATION Status: Chronic (11) Physical deconditioning Code(s): R53.81 - OTHER [place] Status: Acute (12) CKD (chronic kidney disease) stage 3, GFR 30-59 ml/min Code(s): N18.3 - CHRONIC KIDNEY DISEASE, STAGE 3 (MODERATE) Status: Acute - Plan Monitor renal function for recovery. Renal US showed features of CKD without obstruction. Continue bronchodilatos. Increase prednisone dose PT/Ot to continue. Repeat renal function and CBC in the am. Awaiting placement. care plan discussed with patient and relatives at bedside
[2018-12-10] MEDS: Tamsulosin HCl 0.4 MG CAP PO SCH (19:50)
[2018-12-10] MEDS: Atorvastatin Calcium 40 MG TAB PO SCH (19:50)
[2018-12-10] MEDS: Temazepam 15 MG CAP PO SCH (19:50)
[2018-12-10] MEDS: traMADol HCl 50 MG TAB PO PRN (22:43)
[2018-12-10] MEDS: guaiFENesin/DM ER PO PRN (22:44)
[2018-12-11 05:30] LABS: #Basophils 0.1 thou/uL (0.0-0.2); #Lymphocytes 1.3 thou/uL (1.20-3.40); #Monocytes 0.8 thou/uL (0.11-0.59); #Neutrophils 6.7 thou/uL (1.40-6.50); %Basophils 0.7 % (0.0-1.0); %Eosinophils 0.4 % (0.0-10.0); %Lymphocytes 14.8 % (21.0-51.0); %Monocytes 8.8 % (0.0-10.0); %Neutrophils 75.4 % (42.0-75.0); Hemoglobin 6.9 g/dL (14.0-18.0); Mean Corpuscular HGB CONC 33.4 g/dL (32.0-36.0); Mean Corpuscular Hemoglobin 34.5 pg (27.0-31.0); Mean Platelet Volume 8.5 fL (7.4-10.4); Platelet Count 146 thou/uL (130-400); RBC Distribution Width 15.1 % (11.5-14.5); Red Blood Cell (RBC) Count 2.01 mill/uL (4.70-6.10); White Blood Cell (WBC) Count 8.8 thou/uL (4.8-10.8)
[2018-12-11 05:44] LABS: Albumin 2.9 g/dL (3.4-4.8); Anion Gap 9 mmol/L (10-20); BUN (Urea Nitrogen) 25 mg/dL (8.4-25.7); BUN/Creatinine Ratio 10.42; Calc. Creatinine Clearance 23 mL/min (70-130); Calcium 7.8 mg/dL (7.8-10.44); Carbon Dioxide 29 mmol/L (23-31); Chloride 107 mmol/L (98-107); Estimated GFR-MDRD 26; Glucose 133 mg/dL (83-110); Phosphorus 2.4 mg/dL (2.3-4.7); Potassium 4.5 mmol/L (3.5-5.1); Sodium 140 mmol/L (136-145)
[2018-12-11] MEDS: Budesonide 0.25 MG/2 ML NEB INH SCH ×2 (06:53→18:50)
[2018-12-11] MEDS: traMADol HCl 50 MG TAB PO PRN ×2 (08:11→20:17)
[2018-12-11] MEDS: Digoxin 0.125 MG TAB PO SCH (08:12)
[2018-12-11] MEDS: Dronedarone HCl 400 MG TAB PO SCH ×2 (08:13→18:08)
[2018-12-11] MEDS: Folic Acid 1 MG TAB PO SCH ×2 (08:13→20:17)
[2018-12-11] MEDS: Gabapentin 300 MG CAP PO SCH (08:13)
[2018-12-11] MEDS: Ferrous Sulfate 325 MG TAB PO SCH (08:14)
[2018-12-11] MEDS: Famotidine/PF 20 mg/2ml Vial SLOW IVP SCH (08:14)
[2018-12-11] MEDS: predniSONE 20 MG TAB PO SCH (08:14)
[2018-12-11] MEDS: Docusate 100 MG CAP PO SCH (08:14)
[2018-12-11] MEDS: Aspirin Chewable 81 MG TAB PO SCH (08:14)
[2018-12-11] MEDS: Enoxaparin Sodium 30 MG/0.3 ML SYRINGE SC SCH (08:15)
[2018-12-11] MEDS: Carvedilol 3.125 MG TAB PO SCH ×2 (08:18→18:08)
--- NOTE | 2018-12-11 09:39 | PDOC.HOSPP ---
- Subjective Encounter Date: 12/11/18 Encounter Time: 09:20 Subjective: f/u for ERIKA/CKD, weakness, falls. States feeling better overall. Appetite ok. Worked with PT for ambulating. - Objective Vital Signs & Weight: Vital Signs (12 hours) Temp Pulse Resp BP Pulse Ox 12/11/18 07:47 97.8 F 69 20 141/86 H 100 12/11/18 03:31 98.4 F 67 15 113/55 L 96 Weight Admit Weight 145 lb 7 oz Weight 150 lb 14.4 oz I&O: 12/10/18 12/11/18 12/12/18 06:59 06:59 06:59 Intake Total 1470 1440 Output Total 1400 1230 Balance 70 210 Result Diagrams: 12/11/18 05:04 12/11/18 05:04 Additional Labs: Laboratory Tests 01/16/17 01/16/17 01/17/17 18:28 18:28 03:44 WBC 32.9 H Hgb 12.4 L Hct Plt Count BUN Creatinine 0.95 1.46 H Iron TIBC % Saturation Ferritin Total Bilirubin AST ALT Alkaline Phosphatase Troponin I Free T4 TSH 3rd Generation PTH Intact Digoxin 01/17/17 01/18/17 01/18/17 03:44 04:53 04:53 WBC 18.2 H 20.7 H Hgb 10.6 L 8.6 L Hct Plt Count BUN Creatinine 1.47 H Iron TIBC % Saturation Ferritin Total Bilirubin AST ALT Alkaline Phosphatase Troponin I Free T4 TSH 3rd Generation PTH Intact Digoxin 01/19/17 01/19/17 03/15/17 04:22 04:22 02:15 WBC 19.7 H Hgb 7.1 L Hct Plt Count BUN Creatinine 1.66 H 0.99 Iron TIBC % Saturation Ferritin Total Bilirubin AST ALT Alkaline Phosphatase Troponin I Free T4 TSH 3rd Generation PTH Intact Digoxin 12/04/18 12/04/18 12/04/18 00:32 00:32 00:32 WBC Hgb 11.8 L Hct 36.0 L Plt Count BUN Creatinine 1.88 H Iron TIBC % Saturation Ferritin Total Bilirubin 1.4 H AST 62 H ALT 102 H Alkaline Phosphatase 124 H Troponin I 0.223 H Free T4 TSH 3rd Generation PTH Intact Digoxin 12/04/18 12/04/18 12/04/18 00:32 03:34 06:31 WBC Hgb Hct Plt Count BUN Creatinine Iron TIBC % Saturation Ferritin Total Bilirubin AST ALT Alkaline Phosphatase Troponin I 0.210 H 0.201 H Free T4 TSH 3rd Generation 6.0115 H PTH Intact Digoxin 12/04/18 12/06/18 12/06/18 06:31 05:19 05:19 WBC Hgb Hct Plt Count BUN 27 H Creatinine 2.68 H Iron TIBC % Saturation Ferritin Total Bilirubin AST ALT Alkaline Phosphatase Troponin I Free T4 0.78 TSH 3rd Generation PTH Intact Digoxin Less than 0.15 L 12/08/18 12/09/18 12/09/18 05:28 10:33 10:33 WBC Hgb 8.2 L Hct Plt Count 135 BUN Creatinine 2.50 H Iron 103 TIBC 166 L % Saturation 62 H Ferritin 825.09 H Total Bilirubin AST ALT Alkaline Phosphatase Troponin I Free T4 TSH 3rd Generation PTH Intact Digoxin 12/09/18 12/10/18 12/10/18 10:33 05:34 05:34 WBC Hgb 7.7 L 8.2 L Hct Plt Count 138 104 L BUN Creatinine 2.50 H Iron TIBC % Saturation Ferritin Total Bilirubin AST ALT Alkaline Phosphatase Troponin I Free T4 TSH 3rd Generation PTH Intact Digoxin 12/10/18 08:38 WBC Hgb Hct Plt Count BUN Creatinine Iron TIBC % Saturation Ferritin Total Bilirubin AST ALT Alkaline Phosphatase Troponin I Free T4 TSH 3rd Generation PTH Intact 101.3 H Digoxin EKG Reviewed by me: Yes (Tele - SR) Hospitalist ROS - Medication Medications: Active Medications Generic Name Dose Route Start Last Admin Trade Name Freq PRN Reason Stop Dose Admin Albuterol Sulfate 3 mg 12/04/18 16:30 12/07/18 21:49 Ventolin NEB 3 mg QIDPRN PRN Administration Wheezing Albuterol/Ipratropium 3 ml 12/09/18 15:00 12/11/18 06:51 Duoneb NEB 3 ml QID-RT CLAUDIA Administration Aspirin 81 mg 12/05/18 09:00 12/11/18 08:14 Aspirin Chewable PO 81 mg DAILY CLAUDIA Administration Atorvastatin Calcium 40 mg 12/04/18 21:00 12/10/18 19:50 Lipitor PO 40 mg HS CLAUDIA Administration Budesonide 0.5 mg 12/09/18 12:02 12/11/18 06:53 Pulmicort Neb Solution INH 0.5 mg BID-RT CLAUDIA Administration Carvedilol 1.5625 mg 12/08/18 08:00 12/11/18 08:18 Coreg PO 1.5625 mg BID-WM CLAUDIA Administration Cholecalciferol 5,000 units 12/05/18 09:00 12/11/18 08:12 Vitamin D3 PO 5,000 units DAILY CLAUDIA Administration Digoxin 0.125 mg 12/05/18 09:00 12/11/18 08:12 Lanoxin PO 0.125 mg DAILY CLAUDIA Administration Docusate Sodium 100 mg 12/05/18 09:00 12/11/18 08:14 Colace PO 100 mg DAILY CLAUDIA Administration Dronedarone 400 mg 12/06/18 17:00 12/11/18 08:13 Multaq PO 400 mg BID-WM CLAUDIA Administration Enoxaparin Sodium 30 mg 12/08/18 09:00 12/11/18 08:15 Lovenox SC 30 mg 0900 CLAUDIA Administration Famotidine 20 mg 12/07/18 09:00 12/11/18 08:14 Pepcid SLOW IVP 20 mg DAILY CLAUDIA Administration Ferrous Sulfate 325 mg 12/05/18 08:00 12/11/18 08:14 Feosol PO 325 mg QAM-WM CLAUDIA Administration Folic Acid 2 mg 12/04/18 21:00 12/11/18 08:13 Folvite PO 2 mg BID CLAUDIA Administration Gabapentin 600 mg 12/10/18 09:00 12/11/18 08:13 Neurontin PO 600 mg DAILY CLAUDIA Administration Guaifenesin/Dextromethorphan 1 tab 12/10/18 22:28 12/10/18 22:44 Mucinex Dm PO 1 tab Q12H PRN Administration Congestion/cough Prednisone 40 mg 12/11/18 08:00 12/11/18 08:14 Prednisone PO 40 mg QAM-WM CLAUDIA Administration Sodium Chloride 10 ml 12/08/18 21:00 12/11/18 08:15 Flush - Normal Saline IVF 10 ml Q12HR CLAUDIA Administration Tamsulosin HCl 0.4 mg 12/04/18 21:00 12/10/18 19:50 Flomax PO 0.4 mg HS CLAUDIA Administration Temazepam 30 mg 12/04/18 21:00 12/10/18 19:50 Restoril PO 30 mg HS CLAUDIA Administration Tramadol HCl 50 mg 12/04/18 16:30 12/11/18 08:11 Ultram PO 50 mg BIDPRN PRN Administration Pain - Exam General Appearance: NAD, awake alert Eye: PERRL, anicteric sclera ENT: normocephalic atraumatic, no oropharyngeal lesions Neck: supple, symmetric, no JVD, no thyromegaly, no lymphadenopathy Heart: RRR, no murmur, no gallops, no rubs, normal peripheral pulses Respiratory: CTAB, no wheezes, no rales, no ronchi, normal chest expansion Gastrointestinal: soft, non-tender, non-distended, normal bowel sounds Extremities - other findings: multiple areas of ecchymosis/bruising on extremities Skin: normal turgor Neurological: cranial nerve grossly intact, no new deficit Musculoskeletal: normal tone, generalized weakness Psychiatric: normal affect, A&O x 3 Hosp A/P (1) ERIKA (acute kidney injury) Code(s): N17.9 - ACUTE KIDNEY FAILURE, UNSPECIFIED Status: Acute (2) Macrocytic anemia Code(s): D53.9 - NUTRITIONAL ANEMIA, UNSPECIFIED Status: Acute Plan: Acute/subacute, repeat H/H today, serial monitoring, Folate daily (3) Hypotension Status: Acute Plan: Resolved, continue low-dose Coreg (4) Paroxysmal atrial fibrillation with RVR Code(s): I48.0 - PAROXYSMAL ATRIAL FIBRILLATION Status: Chronic Plan: Currently in SR, continue Coreg/Multaq (5) Falls frequently Code(s): R29.6 - REPEATED FALLS Status: Acute Plan: PT for functional assessment, ambulation, pending Rehab approval (6) COPD (chronic obstructive pulmonary disease) Status: Chronic Qualifiers: COPD type: emphysema Emphysema type: panlobular Qualified Code(s): J43.1 - Panlobular emphysema Plan: Stable, continue Bronchodilators, Prednisone (7) Demand ischemia Code(s): I24.8 - OTHER FORMS OF ACUTE ISCHEMIC HEART DISEASE Status: Acute - Plan PT/OT, addiction social worker, respiratory therapy, out of bed/ambulate, DVT proph w/ SCDs Stable currently Decrease Coreg 1.5625mg BID Cardiology consultation appreciated Rehab pending PT/OT for functional assessment Lab: Repeat H/H now OOB with PT
[2018-12-11 11:24] LABS: Hemoglobin 7.2 g/dL (14.0-18.0); Platelet Count 155 thou/uL (130-400)
[2018-12-11] MEDS: Albumin 25% 25 GM/100 ML BOT IVPB SCH ×3 (12:01→23:55)
--- NOTE | 2018-12-11 12:15 | CON ---
DATE OF CONSULTATION: 12/11/2018 SERVICE: Nephrology. REQUESTING PHYSICIAN: Dr. Puma Casas. REASON FOR CONSULTATION: Acute renal failure. HISTORY OF PRESENT ILLNESS: An 83-year-old male patient with multiple comorbidities including coronary artery disease, paroxysmal atrial fibrillation, COPD, on home oxygen, admitted on December 04, 2018, due to worsening generalized weakness associated with frequent falls. The patient was found to be in atrial fibrillation necessitating Cardiology consult. The patient also was noticed to have acute elevation in creatinine. Prior to hospitalization, the patient reported bilateral leg swelling for which he was started on diuretics by PCP with some improvement. Since hospitalization at initial stage, the patient had hypotension, which was felt to be due to volume depletion related to diuretic therapy, hence was treated with gentle IV fluid hydration. However, renal function remained elevated, necessitating Nephrology consult. Of note, baseline creatinine ranges from 0.7 to 0.9, but was 1.88 on presentation on December 04, but has progressively gone up to a peak of 2.73 before trending down was to 2.40 today. The patient denied NSAID use and there has been no nephrotoxic agent use since hospitalization. The patient admitted to frequent falls as well as multiple bruises all over the body, but denied loss of consciousness. He was unable to tell me, however, if he was having orthostatic hypotension and dizziness leading to the falls. The patient also denied dysuria, hematuria, difficulty urinating, though he admitted to BPH. He also denied nausea, vomiting, or change in bowel habit. PAST MEDICAL HISTORY: 1. Chronic diastolic heart failure. 2. Paroxysmal atrial fibrillation. 3. Chronic respiratory failure, on home oxygen. 4. Advanced COPD. 5. Peripheral neuropathy. 6. Coronary artery disease status post ND. 7. Carotid atherosclerosis status post endarterectomy. 8. Hypertension. PAST SURGICAL HISTORY: 1. Left carotid endarterectomy. 2. Right hip surgery. 3. Appendectomy. 4. Right lung surgery. FAMILY HISTORY: Reviewed, but noncontributory. SOCIAL HISTORY: The patient lives at home with family. He is a former smoker and also chewed tobacco. Quit more than 10 years ago. Denied alcohol or recreational drug use. He currently chews tobacco. ALLERGIES: NO KNOWN DRUG ALLERGIES REPORTED. MEDICATIONS: Prior to hospital medications. 1. Albuterol sulfate two puffs inhalation q.i.d. 2. Aspirin 81 mg p.o. daily. 3. Lipitor 40 mg p.o. daily at bedtime. 4. Budesonide 0.25 b.i.d. 5. Carvedilol 3.125 mg p.o. b.i.d. 6. Cholecalciferol 5000 units p.o. daily. 7. Digoxin 125 mcg p.o. daily. 8. Docusate sodium 100 mg p.o. daily. 9. Ferrous sulfate 325 mg p.o. daily. 10. Folic acid 2 mg p.o. b.i.d. 11. Gabapentin 600 mg p.o. t.i.d. 12. DuoNeb 3 mL nebulization t.i.d. 13. Sennosides-docusate two tablets p.o. b.i.d. p.r.n. for constipation. 14. p.o. daily at bedtime p.r.n. 15. Temazepam 30 mg p.o. daily at bedtime. 16. Tramadol 50 mg p.o. b.i.d. p.r.n. 17. Prednisone 10 mg p.o. daily. 18. Flomax 0.4 mg p.o. daily at bedtime. CURRENT HOSPITAL MEDICATIONS: 1. Aspirin 81 mg p.o. daily. 2. Lipitor 40 mg p.o. daily at bedtime. 3. Budesonide 0.5 mg b.i.d. 4. Carvedilol 1.5625 mg p.o. b.i.d. 5. Cholecalciferol 5000 units p.o. daily. 6. Digoxin 125 mcg p.o. daily. 7. Docusate 100 mg p.o. daily. 8. Multaq 400 mg p.o. b.i.d. 9. Lovenox 30 mg subcutaneously daily. 10. Pepcid 20 mg daily. 11. Ferrous sulfate 325 mg p.o. daily. 12. Folic acid 2 mg p.o. b.i.d. 13. Gabapentin 600 mg p.o. daily. 14. DuoNeb 3 mL q.i.d. 15. Prednisone 40 mg p.o. daily. 16. Flomax 0.4 mg p.o. daily at bedtime. 17. Restoril 30 mg p.o. daily at bedtime. 18. Guanfacine DM one tablet p.o. b.i.d. p.r.n. for cough. 19. Albuterol sulfate nebulization q.i.d. p.r.n. 20. Tramadol 50 mg p.o. b.i.d. p.r.n. for pain. REVIEW OF SYSTEMS: Patient reports pleuritic right lower chest pain which he thinks may be related to prior shingles. This pain is said to be worse with coughing. A 12-point review of system performed was negative other than pertinent positives and negatives included in the history of present illness. PHYSICAL EXAMINATION: VITAL SIGNS: Temperature 97.8, pulse 69, respiratory rate 20, SpO2 of 100% on 2 L nasal cannula, blood pressure is 141/86. GENERAL: Elderly male, in no obvious distress. Afebrile. Anicteric. Acyanotic. HEENT: Normocephalic, atraumatic. Oral mucosa is moist. NECK: Supple with no obvious mass or lymphadenopathy or JVD appreciated. CARDIOVASCULAR: Regular rhythm and rate with normal heart sounds 1 and 2. Soft systolic murmur is noted. RESPIRATORY: Fair air entry bilaterally with prolonged expiration and scattered few rhonchi. There is no use of accessory muscles. GI: Full, soft, nontender, nondistended with normal bowel sounds. EXTREMITIES: No edema or erythema. Scattered bruises all over the body at various stages of resolution noted. SYRUPER: Conscious and alert and oriented x3 with appropriate mental status. Memory lapse is noted. The patient moves all extremities. Cranial nerves 2 through 12 are grossly intact. DIAGNOSTIC DATA: 1. Renal function panel today showed sodium 140, potassium 4.5, chloride 107, CO2 of 29, BUN 25, creatinine 2.40, eGFR of 26, glucose 133, calcium 7.8, phosphorus 2.4, albumin 2.9. Of note, on presentation on December 04, creatinine was 1.88. 2. Potassium yesterday was 5.3. 3. CBC today showed WBC 8.8, hemoglobin 6.9, MCV 103, platelet 146. 4. On presentation to the hospital, hemoglobin was 11.8. 5. Urinalysis on December 04 showed yellow turbid urine with pH of 6.0, specific gravity of 1.023. Urine protein of 300 mg/dL, glucose 100 mg/dL, trace ketones, 2+ blood and 3+ urobilinogen with 25 leukocyte esterase. Nitrite, bilirubin were negative. Microscopy showed 11 to 20 RBC and 7 to 10 WBC with 4 to 6 squamous cells and 11 to 20 granular cast. 6. Urine electrolytes on December 08 showed random total protein of 14 mg/dL, urine creatinine of 29.9, urine sodium of 89 and urine urea nitrogen of 171. 7. Chest x-ray on presentation, December 04, showed small right pleural effusion with normal sized cardiomediastinal silhouette. Multiple stable bilateral rib fractures were noted. 8. Echocardiogram performed on December 05 showed preserved systolic function with EF of 55% to 60% as well as severely thickened trileaflet aortic valve with decreased excursion and [id number] aortic stenosis as well as mild mitral regurgitation. 9. Renal ultrasound performed on December 09 showed cortical thickening and mildly increased cortical echogenicity of both kidneys with right measuring 10.4 and left 11. Also noted was large left renal cyst measuring 5 cm. ASSESSMENT: 1. Acute renal failure superimposed on chronic kidney disease stage 3. This is felt to be volume mediated with possible acute tubular necrosis given intermittent hypotension noticed initially on hospitalization. The patient is currently euvolemic and continues to make urine. Fractional excretion of urea and sodium were not suggestive of prerenal etiology, however. The patient also has been treated with crystalloid and colloid with no significant improvement in renal function, making ATN more likely. Further questioning revealed that the patient was on aggressive diuretic therapy prior to hospitalization. He is currently not on any nephrotoxic agents. 2. Hyperkalemia: Due to acute renal failure, improved following treatment with Kayexalate. 3. Acute on chronic anemia: Etiology is unclear, but anemia of kidney disease as well as acute blood loss given multiple bruises may be responsible. Occult GI bleeding cannot be ruled out as the patient is on aspirin therapy. 4. Vitamin D deficiency, on supplementation. 5. Hypoalbuminemia. 6. Hypertension, patient had hypotension on presentation, but that has resolved currently. 7. Paroxysmal atrial fibrillation: Currently in sinus with treatment of Multaq. 8. Advanced chronic obstructive pulmonary disease, on home oxygen. 9. Left lower pleuritic chest pain: May be related to rib fractures. The patient was noted to have multiple rib fractures on chest x-ray ordered on presentation. PLAN: 1. We will do therapeutic trial with albumin given the patient is hypoalbuminemic and looks, maybe on the dry side. 2. The patient may also benefit from blood transfusion if repeat hemoglobin is around 7. This will improve perfusion to the kidneys which may be having some ischemic changes. 3. We will start lidocaine patch to the left lower chest to help with pleuritic chest pain. 4. We will repeat renal function in the morning. 5. Avoid nephrotoxic agents. 6. Renally dosed on medication. 7. We will follow along with you. Many thanks for involving us in the care of this patient. Job ID: [id number]
[2018-12-11] MEDS: Lidocaine 5% Patch TD SCH (12:41)
[2018-12-11] MEDS: guaiFENesin/DM ER PO PRN (20:16)
[2018-12-11] MEDS: Temazepam 15 MG CAP PO SCH (20:16)
[2018-12-11] MEDS: Tamsulosin HCl 0.4 MG CAP PO SCH (20:17)
[2018-12-11] MEDS: Atorvastatin Calcium 40 MG TAB PO SCH (20:17)
[2018-12-11] MEDS ORDERED: Lidocaine Patch Removal 1 EACH TOP SCH (23:59)
[2018-12-12] MEDS ORDERED: Lidocaine Patch Removal 1 EACH TOP SCH (01:00)
[2018-12-12 05:25] LABS: #Eosinphils 0.1 thou/uL (0.0-0.7); #Lymphocytes 1.2 thou/uL (1.20-3.40); #Monocytes 0.7 thou/uL (0.11-0.59); #Neutrophils 6.6 thou/uL (1.40-6.50); %Eosinophils 0.7 % (0.0-10.0); %Lymphocytes 13.7 % (21.0-51.0); %Monocytes 7.8 % (0.0-10.0); %Neutrophils 77.7 % (42.0-75.0); Hemoglobin 7.4 g/dL (14.0-18.0); Mean Corpuscular HGB CONC 33.4 g/dL (32.0-36.0); Mean Corpuscular Hemoglobin 33.7 pg (27.0-31.0); Mean Platelet Volume 8.3 fL (7.4-10.4); Platelet Count 161 thou/uL (130-400); Red Blood Cell (RBC) Count 2.19 mill/uL (4.70-6.10); White Blood Cell (WBC) Count 8.5 thou/uL (4.8-10.8)
[2018-12-12 05:39] LABS: Albumin 3.7 g/dL (3.4-4.8); Anion Gap 7 mmol/L (10-20); BUN (Urea Nitrogen) 23 mg/dL (8.4-25.7); BUN/Creatinine Ratio 11.68; Calc. Creatinine Clearance 28 mL/min (70-130); Calcium 8.2 mg/dL (7.8-10.44); Carbon Dioxide 31 mmol/L (23-31); Chloride 105 mmol/L (98-107); Estimated GFR-MDRD 33; Glucose 85 mg/dL (83-110); Phosphorus 2.6 mg/dL (2.3-4.7); Potassium 4.2 mmol/L (3.5-5.1); Sodium 139 mmol/L (136-145)
[2018-12-12] MEDS: Enoxaparin Sodium 30 MG/0.3 ML SYRINGE SC SCH (08:25)
[2018-12-12] MEDS: Docusate 100 MG CAP PO SCH (08:25)
[2018-12-12] MEDS: Digoxin 0.125 MG TAB PO SCH (08:26)
[2018-12-12] MEDS: Dronedarone HCl 400 MG TAB PO SCH (08:26)
[2018-12-12] MEDS: Aspirin Chewable 81 MG TAB PO SCH (08:26)
[2018-12-12] MEDS: Folic Acid 1 MG TAB PO SCH (08:26)
[2018-12-12] MEDS: Carvedilol 3.125 MG TAB PO SCH (08:26)
[2018-12-12] MEDS: Gabapentin 300 MG CAP PO SCH (08:26)
[2018-12-12] MEDS: predniSONE 20 MG TAB PO SCH (08:27)
[2018-12-12] MEDS: traMADol HCl 50 MG TAB PO PRN (08:27)
[2018-12-12] MEDS: Ferrous Sulfate 325 MG TAB PO SCH (08:28)
[2018-12-12] MEDS: Famotidine/PF 20 mg/2ml Vial SLOW IVP SCH (08:28)
[2018-12-12] MEDS: Budesonide 0.25 MG/2 ML NEB INH SCH (08:30)
[2018-12-12] MEDS ORDERED: Budesonide 0.25 MG/2 ML NEB ONE (08:33)
--- NOTE | 2018-12-12 09:21 | PRG ---
DATE OF SERVICE: 12/12/2018 SERVICE: Nephrology. SUBJECTIVE: An 83-year-old male admitted due to generalized weakness and frequent fall, being followed up by Nephrology for acute renal failure. The patient continues to complain of left lower chest pleuritic chest pain. Denied nausea, vomiting, or change in bowel habit. Oral intake is adequate. OBJECTIVE: VITAL SIGNS: Temperature 97.5, pulse 58, respiratory rate 15, SpO2 of 94% on 2 L nasal cannula, and blood pressure is 131/62. GENERAL: Elderly male, in no obvious distress. Afebrile. Anicteric. Acyanotic. HEENT: Normocephalic and atraumatic. Oral mucosa is moist. NECK: Supple with no JVD. CARDIOVASCULAR: Normal heart sounds one and two with systolic murmur. RESPIRATORY: Fair air entry bilaterally with scattered rhonchi and some transmitted breath sounds. Work of breathing has not increased. GI: Full, soft, nontender, and nondistended with normal bowel sounds. MUSCULOSKELETAL: Extremities are grossly normal looking without edema. Scattered ecchymoses and bruises at different levels of resolution noted. WATER RESOURCE CONSULTANT: Conscious, alert, and oriented x3 with appropriate mental status. Cranial nerves 2 through 12 are grossly intact. Memory lapse is noted. The patient moves all extremities. DIAGNOSTIC DATA: CBC showed WBC count of 8.5, hemoglobin of 7.4, MCV of 101, and platelet of 161. Renal function panel showed sodium 139, potassium 4.2, chloride 105, CO2 of 31, BUN 23, creatinine 1.97, glucose 85, calcium 8.2, phosphorus 2.6, and albumin 3.7. ASSESSMENT: 1. Acute renal failure: Most likely due to prerenal etiology given anemia and volume depletion. Creatinine is trending down following blood transfusion and albumin therapy. Hemodynamics have improved. Note, the patient had some hypotensive episodes prior to presentation and during early part of hospitalization. He was on diuretic therapy, which I held at this time. 2. Volume status: Clinically euvolemic or mildly dry. Not on diuretic at this time. 3. Pleuritic chest pain: The patient also has wheezing. This is concerning for fluid overload. Most likely will be due to chronic obstructive pulmonary disease exacerbation. JVD or edema was not appreciated. 4. Anemia: Acute on chronic. Most likely due to blood loss anemia superimposed on chronic anemia. Iron chemistry was not suggestive of iron deficiency anemia. The patient is status post transfusion of one packed red blood cells yesterday. 5. Hypertension: Control is acceptable. PLAN: [place] oral intake recommended. No indication for further crystalloid or colloid. We will monitor renal function. Also monitor hemoglobin and transfuse as needed. Transfusion as per primary attending. The patient can be discharged from Nephrology point of view with close followup. Many thanks for involving us in the care of this patient. We will follow along with you. Job ID: [id number]
--- NOTE | 2018-12-12 09:39 | RAD ---
EXAM: Chest PA and lateral: HISTORY: Left pleuritic chest pain. Wheezing. COMPARISON: 12/04/2018, 12/06/2017 FINDINGS: Stable diminished lung volume in the right hemithorax. Chronic changes in the right lung base and rig ht lung apex are noted. Stable rightward deviation cardiac mediastinal silhouette. Mild compensatory hyperinflation of the left lung. No pneumothorax or acute osseous abnormalities. Old rig ht rib fractures are noted. IMPRESSION: No acute cardiopulmonary process. No significant interval change.
[2018-12-12] MEDS: Lidocaine 5% Patch TD SCH (12:16)
[2018-12-12] MEDS ORDERED: Lidocaine 5% Patch TD SCH (13:00)
[2018-12-12 14:34] VITALS: BP 166/74; TEMP 98.2
--- NOTE | 2018-12-13 00:08 | DIS ---
DATE OF ADMISSION: 12/04/2018 DATE OF DISCHARGE: 12/12/2018 DISCHARGE DIAGNOSES: 1. Acute kidney injury on chronic kidney disease stage 3, improved. 2. Macrocytic anemia, acute/subacute, status post 1 unit of packed red blood cells, multifactorial. 3. Hypotension secondary to volume depletion, improved. 4. Paroxysmal atrial fibrillation with rapid ventricular response, currently in sinus mechanism. 5. Multiple falls. 6. Chronic obstructive pulmonary disease without exacerbation. Stable. 7. Demand ischemia. 8. Deconditioning. CONSULTATIONS: 1. Dr. Turner with Nephrology Service. 2. Dr. Gordon with Cardiology Service. PERTINENT LABORATORY AND X-RAY FINDINGS: Potassium ranged between 3.5 to 5.3. Creatinine ranged between 1.88 to 2.73. Estimated GFR ranged between 22 to 34. Serum iron level 103, TIBC 166, percent saturation 62, ferritin 825, folate level 76, free T4 level 0.78, TSH 6.01, PTH 101, albumin level 3.9. CBC showed a hemoglobin ranging between 7.2 to 11.8. MCV ranged between 101 to 105, platelet count ranged between 104 to 186. Urine culture dated 12/04/2018, showed less than 10,000 colonies of mixed skin vitor. Portable chest x-ray dated 12/04/2018, showed a small right pleural effusion. CT of the brain without contrast dated 12/04/2018, showed no acute intracranial process. Three views of the left shoulder dated 12/05/2018, showed no evidence of acute fracture or dislocation. 2D transthoracic echocardiogram dated 12/05/2018, showed ejection fraction of 55% to 60%. Mild to moderate aortic stenosis. Mild mitral regurgitation. Bilateral renal ultrasound dated 12/09/2018, showed large left renal cyst. Cortical thinning. HOSPITAL COURSE: The patient was initially admitted to the telemetry unit after presenting with generalized weakness, multiple falls. The patient underwent initial evaluation and noted with acute kidney injury in the context of chronic kidney disease. The patient was placed on IV fluids and renally dosed on his chronic medications. The patient was also noted with paroxysmal atrial fibrillation with rapid ventricular response, evaluated by the Cardiology Service. The patient was placed on Multaq and continued on Coreg with return to sinus mechanism. The patient was also noted with hypotension requiring IV fluid resuscitation and modification to his Coreg dose to current level of 1.5625 mg b.i.d. The patient continued to receive general supportive management including a physical therapy evaluation due to multiple falls and deconditioning. Due to the patient's comorbid status, multiple falls and social situation, the patient was deemed an appropriate candidate for ongoing skilled care and acute inpatient rehabilitation. The patient was also evaluated by the Nephrology Service due to acute kidney injury slowly improved with IV fluid hydration and renally dosed medications. The patient did receive albumin infusions as well as 1 unit of packed red blood cells with overall improved creatinine prior to discharge. Likely the patient with component of acute tubular necrosis due to volume depletion at the time of admission. Overall, the patient did remain clinically stable during the hospital course, tolerating regular oral intake. Vital signs have remained stable and the patient voiding appropriately. I have examined the patient at the time of discharge and discussed followup instructions. The patient verbalized understanding and in agreement, ready for discharge to inpatient rehabilitation on 12/12/2018. DISCHARGE MEDICATIONS: 1. Albuterol sulfate nebulized solution 2 puffs nebulized q.i.d. 2. Aspirin 81 mg p.o. daily. 3. Lipitor 40 mg p.o. at bedtime. 4. Pulmicort 2 puffs inhaled b.i.d. 5. Vitamin D3 5000 units p.o. daily. 6. Digoxin 125 mcg p.o. daily. 7. Docusate sodium 100 mg p.o. daily. 8. Ferrous sulfate 325 mg p.o. daily. 9. Folic acid 2 mg p.o. b.i.d. 10. Gabapentin 600 mg p.o. t.i.d. 11. DuoNeb 3 mL nebulized t.i.d. p.r.n. 12. Senokot-S 2 tablets p.o. b.i.d. p.r.n. 13. Temazepam 15 mg p.o. at bedtime. 14. Tramadol 50 mg p.o. b.i.d. p.r.n. pain. 15. Coreg 1.5625 mg p.o. b.i.d. 16. Multaq 400 mg p.o. b.i.d. 17. Lidoderm 5% patch one patch transdermally daily. 18. Prednisone 40 mg p.o. daily x3 days, followed by 20 mg p.o. daily x3 days, followed by 10 mg p.o. daily. 19. Flomax 0.4 mg p.o. at bedtime. FOLLOWUP: The patient may follow up with his primary care provider, Dr. Mayank Kennedy after discharge from inpatient rehabilitation. The patient may follow up with Dr. Turner with Nephrology Service and to call his office for appointment time and date. CONDITION ON DISCHARGE: Fair. ACTIVITY: Ad lana. Rolling walker with contact guard assistance with fall risk precautions. DIET: Regular. CODE STATUS: Full. DISPOSITION: Discharged to [facility] on 12/12/2018. TIME SPENT: Total time preparing and coordinating discharge, 45 minutes. Job ID: [id number]
--- NOTE | 2018-12-14 07:32 | PQF ---
FABIANO WORTHY CHARLES DO [id number] [facility]-279 [id number] CLINICAL DOCUMENTATION CLARIFICATION FORM: POST DISCHARGE Addendum to original discharge summary date: ____ Late entry note date: __ DATE: 12-14-2018 ATTN:Puma Tran Please exercise your independent, professional judgment in responding to the clarification form. Clinical indicators are provided on the bottom of this form for your review Can you please specify whether Type II MT is ruled in or ruled out during this encounter? Please check appropriate box(s) to clarify if the following diagnosis has been ruled in or ruled out: Type II MT [ x ] Ruled in diagnosis [ ] Continue to treat [ x ] Resolved [ ] Ruled out diagnosis [ ] Cannot rule out diagnosis [ ] Other diagnosis please specify: [ ] Unable to determine For continuity of documentation, please document condition throughout progress notes and discharge summary. Thank You. CLINICAL INDICATORS: HP 12/[address] Chong PN 12/[address] Augusto luke Ischemia Consult 12/[address] Gordon Elevated troponin likely type II MT PN 12/[address] Casas Demand ischemia liklely NSTEMI type II DS 12/[address] Augusto Luke Ischemia RISK FACTOR: HP 12/04 Old MT 15 years ago HP 12/04 -CHF HP 12/04 -CAD HP 12/04-HTN HP 12/04- AFIB HP 12/04-Former Tobacco user TREATMENTS: PN 12/05 Dr. Casas- Cardio Consult Dr. Gordon PN 12/05 Dr. Casas- Trendelenburg position PN 12/[address] Casas- Aspirin (This form is maintained as a part of the permanent medical record) 2014 [employer]. All Rights Reserved Yamileth [email or web address] [not provided] MTDD
--- NOTE | 2018-12-14 18:52 | PQF ---
FABIANO WORTHY CHARLES DO [id number] [facility]-279 [id number] CLINICAL DOCUMENTATION CLARIFICATION FORM: POST DISCHARGE Addendum to original discharge summary date: ____ Late entry note date: __ DATE:12-14-2018 ATTN:Puma rTan Please exercise your independent, professional judgment in responding to the clarification form. Clinical indicators are provided on the bottom of this form for your review Please check appropriate box(s): [ ] Hypovolemic Shock [ ] Cardiogenic Shock [ ] Shock unspecified [ x ] Other diagnosis please specify: _Hypotension without shock [ ] Unable to determine In addition, please specify: Present on Admission (POA): [ ] Yes [ x ] No [ ] Unable to determine For continuity of documentation, please document condition throughout progress notes and discharge summary. Thank You. CLINICAL INDICATORS: Hospitalist PN p1 ayesha turner called regarding hypotension Hospitalist PN p1 arted IVF bolus with NS and telemetry showing A-fib with RVR in low 100's Hospitalist PN p1 P 78/39 Hospitalist PN p8 2Demand ischemia likely NSTEMI type II RISK FACTORS: Hospitalist PN p6 12/05-Hypotension Hospitalist PN p6 12/05-Paroxysmal atrial fibrillation with RVR Hospitalist PN p6 12/05-ERIKA Hospitalist PN p6 12/05-Volume depletion TREATMENTS: Hospitalist PN p7 12/05-Trendelenberg position Hospitalist PN p7 12/05-IVF bolus with NS x 1L Hospitalist PN p7 12/05-Hospitalist PN p7 12/05 Cardiology Consultaion-Dr. Gordon consult 12/05 (This form is maintained as a part of the permanent medical record) 2014 [employer] All Rights Reserved Yamileth [email or web address] [not provided] MTDD
--- NOTE | 2018-12-17 18:51 | PQF ---
FABIANO WROTHY CHARLES DO [id number] [facility] [id number] CLINICAL DOCUMENTATION CLARIFICATION FORM: POST DISCHARGE Addendum to original discharge summary date: ____ Late entry note date: __ DATE:12-17-2018 ATTN:Puma Tran Please exercise your independent, professional judgment in responding to the clarification form. Clinical indicators are provided on the bottom of this form for your review Diagnosis: Type II IN Present on Admission (POA): [ x ] Yes [ ] No [ ] Unable to determine Coding guidelines require hospitals to identify whether a diagnosis was present on admission (POA) or not. To accurately assign the appropriate POA indicator, this information must be clearly documented within the medical record. CLINICAL INDICATORS: PN 12/[address] Casas demand Ischemia Consult 12/[address] Gordon Elevated troponin likely type II IN PN 12/[address] Casas Demand ischemia liklely NSTEMI type II DS 12/[address] Casas Demand Ischemia RISK FACTOR: HP 12/04 Old IN 15 years ago HP 12/04 -CHF HP 12/04 -CAD HP 12/04-HTN HP 12/04- AFIB HP 12/04-Former Tobacco user TREATMENTS: PN 12/05 Dr. Casas- Cardio Consult Dr. Gordon PN 12/05 Dr. Casas- Trendelenburg position PN 12/[address] Casas- Aspirin (This form is maintained as a part of the permanent medical record) [employer]. All Rights Reserved Yamileth [email or web address] [not provided] MTDD
== END 2018-12-12 15:36 | DRG 682 ==
LOC: ERS 23:39 → ERHOLD 12-04 02:42 → 2NO 12-04 15:22
PROVIDERS: ADMIT Internal Medicine; ATTEND Internal Medicine
PROC: 30233N1 Transfusion of Nonautologous Red Blood Cells into Peripheral Vein, Percutaneous Approach (ICD-10-PCS; principal; 2018-12-11)
DX: N17.0 Acute kidney failure with tubular necrosis (principal); I21.A1 Myocardial infarction type 2; I13.0 Hypertensive heart and chronic kidney disease with heart failure and stage 1 through stage 4 chronic kidney disease, or unspecified chronic kidney disease; J96.10 Chronic respiratory failure, unspecified whether with hypoxia or hypercapnia; I50.32 Chronic diastolic (congestive) heart failure; S22.43XA Multiple fractures of ribs, bilateral, initial encounter for closed fracture; R29.6 Repeated falls; G62.9 Polyneuropathy, unspecified; I25.10 Atherosclerotic heart disease of native coronary artery without angina pectoris; F32.9 Major depressive disorder, single episode, unspecified; N40.0 Benign prostatic hyperplasia without lower urinary tract symptoms; J43.1 Panlobular emphysema; I48.0 Paroxysmal atrial fibrillation; E03.9 Hypothyroidism, unspecified; E86.0 Dehydration; D53.9 Nutritional anemia, unspecified; E88.09 Other disorders of plasma-protein metabolism, not elsewhere classified; N18.3 Chronic kidney disease, stage 3 (moderate); D63.1 Anemia in chronic kidney disease; X58.XXXA Exposure to other specified factors, initial encounter; E55.9 Vitamin D deficiency, unspecified; E86.9 Volume depletion, unspecified; F17.220 Nicotine dependence, chewing tobacco, uncomplicated; I95.9 Hypotension, unspecified; E87.5 Hyperkalemia; Z90.49 Acquired absence of other specified parts of digestive tract; I25.2 Old myocardial infarction; Z79.82 Long term (current) use of aspirin; Z79.899 Other long term (current) drug therapy; Z79.52 Long term (current) use of systemic steroids; Z99.81 Dependence on supplemental oxygen
CPT/HCPCS: 36415; 36416; 36430; 70450; 71045; 71046; 76705; 76770; 80048; 80053; 80069; 80162; 81003; 81015; 82306; 82550; 82553; 82570; 82607; 82728; 82746; 83540; 83550; 83735; 83970; 84100; 84156; 84300; 84439; 84443; 84484; 84540; 85007; 85025; 85027; 86850; 86900; 86901; 87086; 93005; 93010; 93306; 94640; 96360; 96361; 96372; J1650; J7512; J7611; J7620; J7626; P9016; P9047; S0028